=== PATIENT | male | born 1980 | race Caucasian/White ===

== ENCOUNTER 2020-07-05 19:55 | Emergency (ER) | payer MEDICAID, SELFPAY ==
[2020-07-05 19:56] VITALS: BP 136/86; PULSE 100; RESP 16; TEMP 36.7; O2SAT 98; BMI 25.0
--- NOTE | 2020-07-05 20:27 | HMH.EDWNDL ---
ED Disposition Clinical Impression: Laceration Disposition: Home, Self-Care Condition on Discharge: Good Instructions: DI for Laceration Repair Additional Instructions: sutures out 8 days and recheck if needed Referrals: PCP,No [Primary Care Provider] - - Critical Care Critical Care Time: No Attestation: On 07/05/20, the high probability of a clinically significant, sudden or life threatening deterioration of the following system(s) required my full and direct attention, intervention and personal management. The time I documented below is in addition to time spent performing reported procedures but includes the following listed in this critical care notation. Medical Decision Making - Medical Records Medical records reviewed: Yes: I reviewed the patient's medical records. - Martín Inquiry Pt receiving controlled substance: No Vital Signs: 07/05/20 19:56 Temperature 98.1 F Temperature Source Oral Pulse Rate [Left Radial] 100 H Respiratory Rate 16 Blood Pressure [Right Arm] 136/86 Blood Pressure Mean [Right Arm] 102 Blood Pressure Source [Right Arm] Automatic Cuff Blood Pressure Position [Right Arm] Sitting 02 Sat by Pulse Oximetry 98 Oxygen Delivery Method Room Air Orders (Tests/Meds): ED MEDICATIONS Discontinued Medications Generic Name Dose Route Start Last Admin Trade Name Freq PRN Reason Stop Dose Admin Acetaminophen 1,000 mg 07/05/20 20:17 Acetaminophen 500mg Tab PO 07/05/20 20:18 ONCE ONE Tetanus/Diphtheria Toxoids 0.5 ml 07/05/20 20:17 Tetanus-Diphth Toxoid, Adult 0.5ml Syr IM 07/05/20 20:18 .ONCE ONE Wound/Laceration HPI - General Chief Complaint: Wound/Laceration Stated Complaint: AO chain lacerated nose Time Seen by Provider: 07/05/20 20:05 Mode of Arrival: Ambulatory Source of Information: Patient, Medical Record Limitations: No Limitations Description of Symptoms (Recalled from ER Triage Doc. by RN): pt stated he was using a come-a-long when the chain broke and hit him in the nose. pt has a laceration present to the bridge of his nose. - History of Present Illness HPI narrative: acute lac nasal bridge - no loc and no nasal bleeding Onset (ago): hour(s) Location: face Place: outdoors Patient tetanus UTD: No Context: accidental - Related Data Previous Rx's Medication Instructions Recorded Minocycline HCl [Minocycline HCl 100 mg PO BID #20 tab 03/19/19 100mg Tab*] Sulfamethoxazole/Trimethoprim 1 each PO BID #14 tab 03/19/19 [Bactrim DS tablet] Allergies Allergy/AdvReac Type Severity Reaction Status Date / Time No Known Allergies Allergy Verified 12/25/18 21:57 [facility] History - Hepatitis A Screen Drug use history?: No High risk sexual behaviors?: No History of sexually transmitted infection?: No Currently employed?: No Childcare worker?: No Do you have indoor plumbing?: Yes Do you have electricity?: Yes Attestation statement:: This patient has been screened for Hepatitis A risk factors. I have reviewed the patient's past medical history: Yes Medical History: Reports:: MRSA Denies:: Diabetes Mellitus Type 1, Diabetes Mellitus Type 2 - Social History Smoking Status: Current every day smoker Tobacco Type: cigarettes # Packs/Day (cigarettes): 1 Alcohol Intake: never Substance Use Type: methamphetamine Last Used Substance: unknown Occupational Status: unemployed ROS Obtained: Yes All systems reviewed & no additional complaints - Constitutional Constitutional: Denies fever(s) - ENT Ears, Nose, Mouth, and Throat: Denies epistaxis, Reports nasal trauma, Denies sore throat - Cardiovascular Cardiovascular: Denies chest pain - Respiratory Respiratory: No cough - Gastrointestinal Gastrointestingal: Denies: dysphagia - Genitourinary Male Genitourinary: Denies hematuria - Musculoskeletal Musculoskeletal: Denies joint pain - Integumentary/Breasts Skin/Breast: Reports as per HPI, Reports ot
[2020-07-05 20:51] VITALS: BP 131/85; PULSE 81; RESP 16; TEMP 36.7; O2SAT 98
== END 2020-07-05 20:54 | disposition home or self-care (01) ==
PROVIDERS: Emergency Provider Emergency Medicine
DX: S01.21XA Laceration without foreign body of nose, initial encounter (principal); W27.8XXA Contact with other nonpowered hand tool, initial encounter; Y92.89 Other specified places as the place of occurrence of the external cause; F19.10 Other psychoactive substance abuse, uncomplicated; F17.210 Nicotine dependence, cigarettes, uncomplicated; Z23 Encounter for immunization
CPT/HCPCS: 12011; 90471; 90714; 99282

== ENCOUNTER 2021-05-06 13:25 | Emergency (ER) | payer MEDICAID, SELFPAY ==
[2021-05-06 14:40] VITALS: BP 128/90; PULSE 68; RESP 19; TEMP 37.1; O2SAT 98; BMI 28.3
--- NOTE | 2021-05-06 15:15 | HMH.EDUTC ---
[facility] Disposition Clinical Impression: Viral syndrome, Encounter for laboratory testing for COVID-19 virus Disposition: Home, Self-Care Condition on Discharge: Good Instructions: DI for Viral Syndrome, DI for COVID-19 (Suspected or Confirmed ), Coronavirus Disease 2019, Preventing the Spread of Coronavirus Discharge Instructions Additional Instructions: *Monitor Temp, Over the counter Motrin or Tylenol as directed/as needed Tylenol every 4 hours and Motrin every 6 hours (as long as your family doctor has told you that you can take it) for fever or pain. and straight to ER if unable to lower temp less than 101.0 after medication given *Warm salt water gargles may help to soothe the throat *Throat Lozenges *Warm fluids like tea with honey may help to soothe the throat *Sleep elevated *Humidifier/Vaporizer Over the counter Mucinex or Robitussin may help with cough and congestion Follow up IMMEDIATELY for new or worsening symptoms or no Noticeable improvement over the next 48-72 hours. 911 for difficulty breathing or swallowing You were tested for today for COVID19 your test result should be back in the next 24-48 hours, you may call to the [facility] to see if your test results are back in the next 48 hours [phone] [facility] hours are 9am-9pm You was given a handout with instructions for Self Quarantine and Self isolation for while you wait on test results and what to do if they are positive If you are positive the Health Dept will be contacting you also Make sure to take your Vitamins Vit. C Vit D and Zinc if you can take them Referrals: Provider,Referral, [Primary Care Provider] - As needed Medical Decision Making - Martín Inquiry Pt receiving controlled substance: No Martín was queried for this patient: No Vital Signs: 05/06/21 14:40 05/06/21 15:30 Temperature 98.8 F 98.8 F Temperature Source Oral Pulse Rate 68 Pulse Rate [Right Brachial] 68 Respiratory Rate 19 19 Blood Pressure 128/90 Blood Pressure [Right Arm] 128/90 Blood Pressure Mean [Right Arm] 102 Blood Pressure Source [Right Arm] Automatic Cuff Blood Pressure Position [Right Arm] Sitting 02 Sat by Pulse Oximetry 98 Oxygen Delivery Method Room Air Medical Decision Narrative: Discussed CXR due to patient having history of COPD agreed at first then states that he just wanted to get tested for COVID and he would follow up with his family Doctor if no improvement and negative COVID test/ [facility] HPI - General Stated complaint: covid test Time Seen by Provider: 05/06/21 15:15 Mode of Arrival: Ambulatory Source of Information: Patient Limitations: No Limitations Description of Symptoms (Recalled from Triage Doc. by RN): PATIENT C/O SORE THROAT, COUGH, DIZZINESS X 3 DAYS. WANTS COVID TEST HEENT Symptoms (Recalled from RN notes): Yes Resp Symptoms (Recalled from RN notes): No Skin Symptoms (Recalled from RN notes): No MS Symptoms (Recalled from RN notes): No Functional Status (Recalled from RN notes): WNL - History of Present Illness Provider Complaint: Patient states that he has been having cough, sore throat, nasal congestion and sometimes when he moves too quickly he gets dizzy but then it just goes away and at times when he blew his nose seen small amount of blood in his mucous from his nose State that he wanted to get tested for COVID - Related Data Previous Rx's Medication Instructions Recorded Minocycline HCl [Minocycline HCl 100 mg PO BID #20 tab 03/19/19 100mg Tab*] Sulfamethoxazole/Trimethoprim 1 each PO BID #14 tab 03/19/19 [Bactrim DS tablet] Allergies Allergy/AdvReac Type Severity Reaction Status Date / Time No Known Allergies Allergy Verified 12/25/18 21:57 - Worker's Comp Is this a Worker's Comp case?: No [facility] History - Hepatitis A Screen Drug use history?: No High risk sexual behaviors?: No History of sexually transmitted infection?: No Currently employed?: No Childcare worker?: No Do you have indoor pl
[2021-05-06 15:30] VITALS: BP 128/90; PULSE 68; RESP 19; TEMP 37.1; O2SAT 98
== END 2021-05-06 15:33 | disposition home or self-care (01) ==
LOC: UTC 15:39
PROVIDERS: Emergency Provider Nurse Practitioner
DX: B34.9 Viral infection, unspecified (principal); Z20.822 Contact with and (suspected) exposure to COVID-19; F17.210 Nicotine dependence, cigarettes, uncomplicated
CPT/HCPCS: 99202; G0463; U0003

== ENCOUNTER → 2021-07-02 12:38 | Outpatient (CLI) | payer MEDICAID, SELFPAY | PROVIDERS: Visit Provider Nurse Practitioner | DX: Z20.822 Contact with and (suspected) exposure to COVID-19 (principal) | CPT/HCPCS: C9803; U0003; U0005 ==

== ENCOUNTER 2022-11-23 11:08 | Emergency (ER) | payer OTHER, SELFPAY ==
[2022-11-23] VITALS (7 sets, daily range): BP systolic 134–242; BP diastolic 88–142; PULSE 86–93; RESP 20; TEMP 37.1; O2SAT 90–99; BMI 30.7
--- NOTE | 2022-11-23 11:06 | ECG_ITS ---
APPROVED REPORT Exam: Resting ECG HR:87 bpm ECG Measurements Heart Rate 87 AXES ND 140 P 29 QRSd 98 QRS 46 QT 375 T 42 QTc 419 Conclusion SINUS RHYTHM NORMAL ECG UNCONFIRMED REPORT Electronically signed by : Hermes Marcano MD 11/23/2022 21:07:03
--- NOTE | 2022-11-23 11:09 | HMH.EDGENADL ---
Discharge Plan Disposition Patient Disposition: Home, Self-Care Condition: Good Chief Complaint: Overdose Prescriptions Prescriptions: No Action sulfamethoxazole-trimethoprim 1 EACH tablet 1 each PO BID Qty: 14 0RF minocycline 100 MG tablet 100 mg PO BID Qty: 20 0RF Activity Restrictions/Add. Instructions Additional Instructions/Restrictions: Return to the emergency department if worsening headache or neck pain. Return if any difficulty breathing or any new symptoms such as fever, vomiting. You are being provided with a list of physicians available for follow-up of your condition. Please call a physician on this list to arrange a follow-up appointment as soon as possible. Clinical Impressions Clinical Impression: Opiate overdose Instructions Patient Instructions: DI for Drug Overdose in Adults, DI for Substance Use Disorder Discharge ED Provider: Magdaleno Tran General Adult HPI General Chief complaint: Overdose Stated complaint: overdose Time Seen by Provider: 11/23/22 11:10 History of Present Illness HPI narrative: Brought in by ambulance. The patient states that he accidentally overdosed. States that he thought he was injecting ice, but I guess it was not . Denies any other drug use today. Did not snort anything did not take any pills, did not drink alcohol. His mother says that she heard something hit the floor in the kitchen and went in and he was found unresponsive on the floor. 911 was called he received 1 mg of Narcan by EMS and became alert. He now says he just feels funny . Prior to this he says he was feeling his usual healthy self. He says he has a history of hepatitis C, untreated, and COPD. He is not on any prescription medications. He is a smoker. He is a nondrinker. He has been through drug rehab a couple of times, the last a couple of years ago and states I am not going back . Related Data Previous Rx's Medication Instructions Recorded minocycline 100 mg tablet 100 mg PO BID #20 tabs 03/19/19 sulfamethoxazole 800 1 each PO BID #14 tabs 03/19/19 mg-trimethoprim 160 mg tablet Allergies Allergy/AdvReac Type Severity Reaction Status Date / Time No Known Allergies Allergy Verified 12/25/18 21:57 [facility] Disclaimer: The information contained in this section may have been updated after the patient was seen, as this information can be updated by other users. Social History Smoking Status: Current every day smoker tobacco type: cigarettes packs per day: 1 alcohol intake: never substance use type: methamphetamine current occupational status: unemployed Travel in the last 8 weeks: None ROS Obtained: Yes Systems reviewed as appropriate & no additional complaints except as documented Constitutional Constitutional: Denies fever(s), Denies headache(s) and Denies weakness ENT Ears, Nose, Mouth, and Throat: Denies headache(s), Denies nasal discharge and Denies sore throat Cardiovascular Cardiovascular: Denies chest pain Respiratory Respiratory: Denies shortness of breath and Denies cough Gastrointestinal Gastrointestingal: Denies abdominal pain, constipation, diarrhea or vomiting Genitourinary Male Genitourinary: Denies difficulty urinating and Denies flank pain Musculoskeletal Musculoskeletal: Denies numbness Neurologic Neurologic: Denies headache(s), Denies numbness and Denies weakness Physical Exam General General appearance: alert and in no apparent distress Comment: Pulse ox 96% on room air Head Head exam: atraumatic and normocephalic Eye Eye exam: Present normal appearance and EOMI ENT ENT exam: Present mucous membranes moist Neck Neck exam: Present normal inspection and trachea midline Chest Chest inspection: Present normal inspection and symmetric chest wall rise Respiratory Respiratory exam: Present normal lung sounds bilaterally; Absent respiratory distress Cardiovascular Cardiovascular exam: Present regular rate, normal
--- NOTE | 2022-11-23 11:21 | PC.NURSE ---
gave pt pillow w/case & ice chips
--- NOTE | 2022-11-23 11:22 | XR_ITS ---
PROCEDURE INFORMATION: Exam: XR Chest Exam date and time: 11/23/2022 11:46 AM Age: 42 years old Clinical indication: Other: Overdose; Additional info: Od TECHNIQUE: Imaging protocol: Radiologic exam of the chest. Views: 1 view. COMPARISON: No relevant prior studies available. FINDINGS: Lungs: Unremarkable. No consolidation. Pleural spaces: Unremarkable. No pleural effusion. No pneumothorax. Heart/Mediastinum: Unremarkable. No cardiomegaly. Bones/joints: Unremarkable. IMPRESSION: No acute findings.
[2022-11-23 11:49] LABS: Barbiturates Screen,Urine Negative ng/ml (<200); Benzodiazepines Screen,Urine Negative ng/ml (<200)
[2022-11-23 11:50] LABS: Cannabinoid Screen,Urine Positive ng/ml (<50)
[2022-11-23 11:51] LABS: Cocaine Screen,Urine Negative ng/ml (<300)
[2022-11-23 11:52] LABS: Methadone Screen,Urine Negative ng/ml (<300); Opiate Screen,Urine Negative ng/ml (<300)
[2022-11-23 11:53] LABS: Phencyclidine Screen,Urine Negative ng/ml (<25)
[2022-11-23 11:56] LABS: Basophils # 0.2 K/mm3 (0-0.2); Basophils % 1.7 % (0.1-2.0); Eosinophils # 0.3 K/mm3 (0.0-0.4); Eosinophils % 2.7 % (0.1-12.0); Hematocrit 45.6 % (42.0-52.0); Hemoglobin 14.7 g/dL (14.1-18.0); Lymphocytes % 39.7 % (10-50); Mean Corpuscular HGB Conc 32.3 g/dL (31.8-35.4); Mean Corpuscular Hemoglobin 29.9 pg (27.0-31.2); Mean Corpuscular Volume 92.4 fl (80-94); Mean Platelet Volume 8.6 fl (7.4-10.4); Monocytes # 0.8 K/mm3 (0.1-1.0); Monocytes % 8.1 % (1.7-9.3); Neutrophils # 4.9 K/mm3 (1.8-7.8); Neutrophils % 47.7 % (37.0-80.0); Platelet Count 184 K/mm3 (142-424); Red Blood Count 4.94 M/mm3 (4.60-6.20); Red Cell Distribution Width 14.4 % (11.5-17.5); White Blood Count 10.2 K/mm3 (4.8-10.8)
[2022-11-23 11:59] LABS: Alanine Aminotransferase 222 U/L (12-78); Albumin Level 4.2 g/dl (3.5-5.0); Albumin/Globulin Ratio 1.4 (1.1-1.8); Alkaline Phosphatase 86 U/L (38-126); Anion Gap 9.1 mEq/L (5-15); Aspartate Amino Transferase 88 U/L (17-59); Bilirubin,Total 0.9 mg/dl (0.2-1.3); Blood Urea Nitrogen 25 mg/dl (9-20); Calcium 8.5 mg/dl (8.4-10.2); Carbon Dioxide 30 mmol/L (22.0-30.0); Chloride 101 mmol/L (98-107); Creatinine Clearance Estimated 136 mL/min (50-200); Estimated Glomerular Filt Rate 82 ml/min (>60); GFR (African American) 99 ML/MIN (>60); Globulin 3.1 g/dL (1.3-3.2); Glucose 102 mg/dl (74-100); Potassium 3.1 mmoL/L (3.5-5.1); Sodium 137 mmol/L (136-145); Total Protein,Serum 7.3 g/dl (6.3-8.2)
[2022-11-23 12:03] LABS: Ethyl Alcohol < 10 mg/dl (0-10)
--- NOTE | 2022-11-23 12:11 | PC.NURSE ---
pt still in/out.. no complaints at this time
--- NOTE | 2022-11-23 13:00 | PC.NURSE ---
rounded on pt no complaints at this time, mom @ [facility]
[2022-11-23 16:44] LABS: Amphetamine/Metha Screen,Urine Positive ng/ml (<1000)
== END 2022-11-23 13:22 | disposition home or self-care (01) ==
PROVIDERS: Emergency Provider Emergency Medicine
DX: T40.2X1A Poisoning by other opioids, accidental (unintentional), initial encounter (principal); J44.9 Chronic obstructive pulmonary disease, unspecified; B18.2 Chronic viral hepatitis C; F17.210 Nicotine dependence, cigarettes, uncomplicated; X58.XXXA Exposure to other specified factors, initial encounter
CPT/HCPCS: 71045; 80053; 80305; 85025; 93005; 99285

== ENCOUNTER 2022-12-17 20:05 | Emergency (ER) | payer OTHER, SELFPAY ==
[2022-12-17 20:07] VITALS: BP 104/70; PULSE 87; RESP 16; TEMP 37.1; O2SAT 98; BMI 27.1
--- NOTE | 2022-12-17 20:17 | XR_ITS ---
PROCEDURE INFORMATION: Exam: XR Right Knee Exam date and time: 12/17/2022 8:30 PM Age: 42 years old Clinical indication: Pain; Knee; Right TECHNIQUE: Imaging protocol: Radiologic exam of the right knee. Views: 3 views. COMPARISON: No relevant prior studies available. FINDINGS: Bones: Normal. Soft tissues: Joint effusion. IMPRESSION: Joint effusion without visualized acute osseous abnormality. If there is concern for internal joint derangement, consider MRI versus fluid sampling for further evaluation.
--- NOTE | 2022-12-17 21:12 | HMH.EDLOEX ---
Discharge Plan Disposition Patient Disposition: Home, Self-Care Prescriptions Prescriptions: New sulfamethoxazole-trimethoprim [Bactrim DS] 800-160 mg Tablet 1 tab PO Q12H Qty: 14 0RF cephalexin [cephalexin] 500 mg capsule 500 mg PO TID Qty: 30 0RF No Action sulfamethoxazole-trimethoprim 1 EACH tablet 1 each PO BID Qty: 14 0RF minocycline 100 MG tablet 100 mg PO BID Qty: 20 0RF Referrals Follow up/Referrals: Dillan Aburto MD [Primary Care Provider] - See instructions Clinical Impressions Clinical Impression: Acute internal derangement of knee, Cellulitis Instructions Patient Instructions: DI for Knee Pain Discharge ED Provider: Robbin (ED)Emmanuel Lower Extremity Injury HPI General Chief Complaint: Extremity Injury, Lower Stated Complaint: pain R knee Time Seen by Provider: 12/17/22 21:00 Mode of Arrival: Wheelchair Source of Information: Patient and Medical Record Limitations: No Limitations Description of Symptoms (Recalled from ER Triage Doc. by RN): pt states was walking yesterday and felt a pop in rt knee. pt was seen by pcp today and recieved a toradol and steriods shot. pt c/o rt knee pain and unable to bear weight History of Present Illness HPI Narrative: walking yesterday and felt pop rt knee and fell and has knee swelling - able to bear partial wt - saw pcp and placed on steroids - complaint: knee injury Onset (ago): day(s) Injury: Right: knee Type of Injury: unknown Place: street/outdoors Severity: moderate Associated symptoms: snap/pop sensation, swelling and able to partially bear weight Other symptoms: none Related Data Previous Rx's Medication Instructions Recorded minocycline 100 mg tablet 100 mg PO BID #20 tabs 03/19/19 sulfamethoxazole 800 1 each PO BID #14 tabs 03/19/19 mg-trimethoprim 160 mg tablet cephalexin 500 mg capsule 500 mg PO TID #30 caps 12/17/22 sulfamethoxazole 800 1 tab PO Q12H #14 tabs 12/17/22 mg-trimethoprim 160 mg tablet (Bactrim DS) Allergies Allergy/AdvReac Type Severity Reaction Status Date / Time No Known Allergies Allergy Verified 12/25/18 21:57 PFS PFS Disclaimer: The information contained in this section may have been updated after the patient was seen, as this information can be updated by other users. Social History Smoking Status: Current every day smoker tobacco type: cigarettes packs per day: 1 alcohol intake: never substance use type: methamphetamine current occupational status: unemployed Travel in the last 8 weeks: None ROS Obtained: Yes All systems reviewed & no additional complaints except as documented Physical Exam General General appearance: alert Head Head exam: normocephalic Eye Eye exam: Present PERRL and EOMI ENT ENT exam: Present mucous membranes moist Neck Neck exam: Present trachea midline Respiratory Respiratory exam: Absent respiratory distress Cardiovascular Cardiovascular exam: Present regular rate Abdominal Exam Abdominal exam: Present soft Expanded Lower Extremity Exam Right: Hip/Pelvis exam: Present pelvis stable Knee exam: Present tenderness, abrasion, effusion, posterior draw sign, knee extension intact and other (small abrasion with localized reddness - ); Absent full ROM or laceration Lower leg exam: Present full ROM Neurovascular/Tendon exam: Absent pulse deficit Neurological Exam Neurological exam: Present alert, oriented X3 and CN II-XII intact; Absent motor sensory deficit Psychiatric Psychiatric exam: Present normal affect Skin Skin exam: Absent rash Medical Decision Making Medical Records Medical records reviewed: Yes I reviewed the patient's medical records. Martín Inquiry Pt receiving controlled substance: No Vital Signs: 12/17/22 20:07 Temperature 98.7 F Temperature Source Oral Pulse Rate [Right] 87 Respiratory Rate 16 Blood Pressure [Right Arm] 104/70 L Blood Pressure Mean [Right Arm] 81 02 Sat by Pulse
[2022-12-17 22:22] VITALS: BP 138/87; PULSE 84; RESP 20; TEMP 36.8
== END 2022-12-17 22:33 | disposition home or self-care (01) ==
PROVIDERS: Emergency Provider Emergency Medicine; PCP Family Medicine
DX: M23.91 Unspecified internal derangement of right knee (principal); L03.115 Cellulitis of right lower limb; W18.30XA Fall on same level, unspecified, initial encounter
CPT/HCPCS: 73562; 90714; 96372; 99283

== ENCOUNTER 2023-05-13 10:41 | Emergency (ER) | payer OTHER, SELFPAY ==
[2023-05-13 10:42] VITALS: BP 127/79; PULSE 84; RESP 18; TEMP 36.7; O2SAT 98; BMI 32.1
[2023-05-13 10:46] VITALS: BP 127/79; PULSE 80; O2SAT 99
--- NOTE | 2023-05-13 10:50 | CT_ITS ---
FINAL REPORT TECHNIQUE: Thin section axial CT images with coronal reformats were obtained through the neck after the administration of IV contrast. This study was performed with techniques to keep radiation doses as low as reasonably achievable (ALARA). Individualized dose reduction techniques using automated exposure control or adjustment of mA and/or kV according to the patient''s size were employed. CLINICAL HISTORY: sore throat w/ tonsil swelling, pain w/ head turn FINDINGS: There is mild mucosal thickening in the ethmoid air cells. There are small scattered cervical lymph nodes bilaterally. Posterior triangle nodes measure up to 2.0 cm in greatest dimension bilaterally. There is no localized inflammatory reaction or fluid collection. Surgical clips are seen in the right supraclavicular region. The tonsils are prominent bilaterally, left is asymmetrically larger than the right. There is no evidence of abscess. IMPRESSION: Nonspecific diffuse cervical adenopathy, favored to be reactive. Tonsillar prominence, may be due to underlying inflammatory process. No evidence of tonsillar abscess. Reviewed, Interpreted and Dictated by Arsenio Arroyo MD Transcribed by Yen Calhoun Authenticated and [facility]
--- NOTE | 2023-05-13 10:50 | XR_ITS ---
FINAL REPORT CLINICAL HISTORY: cp COMPARISON: 11/23/2022 FINDINGS: SINGLE-VIEW CHEST The heart size is normal. The mediastinum is normal. The lungs are clear. There is no pneumothorax. IMPRESSION: No acute cardiopulmonary process. Reviewed, Interpreted and Dictated by Arsenio Arroyo MD Transcribed by Yen Calhoun Authenticated and [facility]
--- NOTE | 2023-05-13 10:52 | PC.NURSE ---
pt admits to drug use of any kind that he can get a hold of.
--- NOTE | 2023-05-13 10:54 | HMH.EDGENADL ---
Discharge Plan Disposition Patient Disposition: Home, Self-Care Condition: Good Prescriptions Prescriptions: New amoxicillin 500 mg capsule 500 mg PO BID 10 Days Qty: 20 0RF No Action sulfamethoxazole-trimethoprim 1 EACH tablet 1 each PO BID Qty: 14 0RF minocycline 100 MG tablet 100 mg PO BID Qty: 20 0RF sulfamethoxazole-trimethoprim [Bactrim DS] 800-160 mg Tablet 1 tab PO Q12H Qty: 14 0RF cephalexin [cephalexin] 500 mg capsule 500 mg PO TID Qty: 30 0RF Referrals Follow up/Referrals: Provider,Referral, [Primary Care Provider] - See instructions Activity Restrictions/Add. Instructions Additional Instructions/Restrictions: You were evaluated in the emergency department today. You have strep. We did not identify other abnormalities. Take the prescribed antibiotics as directed, do not skip doses, do not stop taking them early. Drink plenty of water. Follow-up with your primary care physician in 2 days for reassessment of symptoms. Take Tylenol and ibuprofen as needed for pain. Return to the emergency department with new or worsening symptoms. Clinical Impressions Clinical Impression: Acute streptococcal pharyngitis Discharge ED Provider: Addie Brannon General Adult HPI General Chief complaint: Nausea/Vomiting/Diarrhea Stated complaint: sore throat, body aches, vomiting Time Seen by Provider: 05/13/23 10:46 Mode of Arrival: Ambulatory Source of Information: Patient Limitations: No Limitations Description of Symptoms (Recalled from ER Triage Doc. by RN): c/o vomiting for 2 days, stomach cramping with a sore throat that feels really swollen and body aching. History of Present Illness HPI narrative: This 42-year-old male with a history of IV drug use presents to the emergency department with concerns of generalized malaise, myalgias, fevers, sore throat, vomiting, diarrhea. Patient states he has been having symptoms for the last 4 to 5 days. Vomiting is nonbloody, nonbilious. Diarrhea is not black, nonbloody. He describes epigastric abdominal pain. He also states he has been having chest pain but no cough. Patient states his throat feels like it is swollen shut. He thinks his voice sounds different than it normally would and he has pain when turning his head side to side. Patient states he smokes, drinks alcohol, and use any type of drugs I can get my hands on . Related Data Previous Rx's Medication Instructions Recorded minocycline 100 mg tablet 100 mg PO BID #20 tabs 03/19/19 sulfamethoxazole 800 1 each PO BID #14 tabs 03/19/19 mg-trimethoprim 160 mg tablet cephalexin 500 mg capsule 500 mg PO TID #30 caps 12/17/22 sulfamethoxazole 800 1 tab PO Q12H #14 tabs 12/17/22 mg-trimethoprim 160 mg tablet (Bactrim DS) amoxicillin 500 mg capsule 500 mg PO BID 10 days #20 caps 05/13/23 Allergies Allergy/AdvReac Type Severity Reaction Status Date / Time No Known Allergies Allergy Verified 12/25/18 21:57 PFS PFS Disclaimer: The information contained in this section may have been updated after the patient was seen, as this information can be updated by other users. Social History Smoking Status: Current every day smoker tobacco type: cigarettes packs per day: 1 alcohol intake: never substance use type: methamphetamine current occupational status: unemployed Travel in the last 8 weeks: None ROS Obtained: Yes All systems reviewed & no additional complaints except as documented Constitutional Constitutional: Reports chills, Reports fever(s), Denies headache(s) and Reports weakness Eyes Eyes: Denies change in vision ENT Ears, Nose, Mouth, and Throat: Denies dizziness, Denies headache(s), Denies nasal congestion and Reports sore throat Cardiovascular Cardiovascular: Reports chest pain, Denies dyspnea and Denies leg edema Respiratory Respiratory: Denies cough and Denies dyspnea Gastrointestinal Gastrointestingal: Reports diarrhea, nausea and vomiting; Denie
[2023-05-13 11:00] VITALS: BP 140/89; PULSE 73; O2SAT 99
--- NOTE | 2023-05-13 11:10 | ECG_ITS ---
APPROVED REPORT Exam: Resting ECG HR:72 bpm ECG Measurements Heart Rate 72 AXES MN 133 P 19 QRSd 97 QRS 47 QT 372 T 38 QTc 395 Conclusion SINUS RHYTHM NORMAL ECG UNCONFIRMED REPORT Electronically signed by : Hermes Marcano MD 05/14/2023 06:43:45
[2023-05-13 11:23] LABS: Strep Scrn Group A (Rapid) Positive (Negative)
[2023-05-13 11:24] LABS: Chloride 105 mmol/L (98-107); Potassium 4.2 mmoL/L (3.5-5.1); Sodium 140 mmol/L (136-145)
[2023-05-13 11:26] LABS: Alanine Aminotransferase 37 U/L (12-78); Alkaline Phosphatase 82 U/L (38-126); Aspartate Amino Transferase 42 U/L (17-59); Bilirubin,Total 0.4 mg/dl (0.2-1.3); Blood Urea Nitrogen 8 mg/dl (9-20); Creatinine Clearance Estimated 203 mL/min (50-200); Estimated Glomerular Filt Rate 124 ml/min (>60); GFR (African American) 150 ML/MIN (>60)
[2023-05-13 11:27] LABS: Albumin Level 3.3 g/dl (3.5-5.0); Anion Gap 8.2 mEq/L (5-15); Calcium 8.9 mg/dl (8.4-10.2); Carbon Dioxide 31 mmol/L (22.0-30.0); Globulin 3.3 g/dL (1.3-3.2); Glucose 93 mg/dl (74-100); Lipase 58 U/L (23-300); Total Protein,Serum 6.6 g/dl (6.3-8.2)
[2023-05-13 11:30] VITALS: BP 130/79; PULSE 70; O2SAT 100
[2023-05-13 11:40] LABS: Troponin I < 0.01 ng/ml (0.00-0.034)
[2023-05-13 11:50] LABS: Basophils # 0.1 K/mm3 (0-0.2); Basophils % 0.8 % (0.1-2.0); Eosinophils # 0.2 K/mm3 (0.0-0.4); Eosinophils % 1.6 % (0.1-12.0); Hematocrit 46.2 % (42.0-52.0); Hemoglobin 14.5 g/dL (14.1-18.0); Lymphocytes # 2.4 K/mm3 (0.7-4.5); Lymphocytes % 20.1 % (10-50); Mean Corpuscular HGB Conc 31.5 g/dL (31.8-35.4); Mean Corpuscular Hemoglobin 30.5 pg (27.0-31.2); Mean Corpuscular Volume 96.8 fl (80-94); Mean Platelet Volume 9.2 fl (7.4-10.4); Monocytes # 0.7 K/mm3 (0.1-1.0); Monocytes % 5.9 % (1.7-9.3); Neutrophils # 8.7 K/mm3 (1.8-7.8); Neutrophils % 71.7 % (37.0-80.0); Platelet Count 183 K/mm3 (142-424); Red Blood Count 4.77 M/mm3 (4.60-6.20); Red Cell Distribution Width 13.5 % (11.5-17.5); White Blood Count 12.1 K/mm3 (4.8-10.8)
--- NOTE | 2023-05-13 13:01 | PC.NURSE ---
pt stated nothing needed at this time,call light at [facility]
[2023-05-13 13:11] VITALS: BP 129/87; PULSE 81; RESP 20; TEMP 36.6; O2SAT 97
== END 2023-05-13 13:12 | disposition home or self-care (01) ==
PROVIDERS: Emergency Provider Emergency Medicine
DX: J02.0 Streptococcal pharyngitis (principal); R11.2 Nausea with vomiting, unspecified; R19.7 Diarrhea, unspecified; F17.210 Nicotine dependence, cigarettes, uncomplicated
CPT/HCPCS: 70491; 71045; 80053; 83605; 83690; 84484; 85025; 87430; 93005; 96374; 99285; J2405; Q9967

== ENCOUNTER 2023-06-10 20:54 | Emergency (ER) | payer OTHER, SELFPAY ==
[2023-06-10 21:05] VITALS: BP 161/77; PULSE 83; RESP 16; TEMP 36.8; O2SAT 99; BMI 28.5
--- NOTE | 2023-06-10 21:32 | HMH.EDGENADL ---
Discharge Plan Disposition Patient Disposition: Home, Self-Care Prescriptions Prescriptions: New ondansetron 4 mg tablet,disintegrating 4 mg PO Q6H PRN (Reason: nausea and vomiting) Qty: 10 0RF dicyclomine 10 mg capsule 10 mg PO TID Qty: 30 0RF Referrals Follow up/Referrals: Provider,Referral, MD [Referring] - See instructions Activity Restrictions/Add. Instructions Additional Instructions/Restrictions: Call your family doctor to establish care for this visit to the emergency department and schedule follow-up within 48 hours to ensure improvement. If you have any worsening of your condition or any other concerning signs or symptoms, return to the emergency department or your primary care doctor for further evaluation. Clinical Impressions Clinical Impression: Gastroenteritis Instructions Patient Instructions: DI for Diarrhea and Traveler's Diarrhea -- Adult, DI for Diarrhea and Traveler's Diarrhea -- Child, DI for Nausea -- Adult, DI for Nausea -- Child Discharge ED Provider: Agustin Mendez General Adult HPI General Chief complaint: Nausea/Vomiting/Diarrhea Stated complaint: vomiting for 2 days Time Seen by Provider: 06/10/23 20:57 Mode of Arrival: Wheelchair Source of Information: Patient Limitations: No Limitations Description of Symptoms (Recalled from ER Triage Doc. by RN): pt states he has had N/V/D and generalized abd pain that is burning and cramping. ongoing x2d History of Present Illness HPI narrative: 42-year-old male no past medical history other than hep C presenting with vomiting and diarrhea. 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 Not currently trying to seek care. Started vomiting 1 day prior to arrival. Nonbloody, nonbilious, yellow and frothy. Patient states that diarrhea is nonbloody, non-mucousy. No fevers or chills, but has abdominal cramping. No dysuria, hematuria, dark or discolored urine, chest pain or shortness of breath. Has not noticed anything that makes any of it better or worse. Related Data Previous Rx's Medication Instructions Recorded dicyclomine 10 mg capsule 10 mg PO TID #30 caps 06/10/23 ondansetron 4 mg disintegrating 4 mg PO Q6H PRN nausea and 06/10/23 tablet vomiting #10 tabs Allergies Allergy/AdvReac Type Severity Reaction Status Date / Time No Known Allergies Allergy Verified 06/10/23 21:11 [facility] Disclaimer: The information contained in this section may have been updated after the patient was seen, as this information can be updated by other users. Social History Smoking Status: Heavy tobacco smoker tobacco type: cigarettes packs per day: 1 alcohol intake: never substance use type: methamphetamine current occupational status: unemployed Travel in the last 8 weeks: None ROS Obtained: Yes All systems reviewed & no additional complaints except as documented Physical Exam General General appearance: alert, in no apparent distress and other ( ) Head Head exam: atraumatic and normocephalic Eye Eye exam: Present normal appearance, PERRL and EOMI ENT ENT exam: Present mucous membranes moist Neck Neck exam: Present normal inspection, full ROM and trachea midline Respiratory Respiratory exam: Absent respiratory distress, wheezes, stridor, accessory muscle use or prolonged expiratory phase Cardiovascular Cardiovascular exam: Present regular rate and normal rhythm Abdominal Exam Abdominal exam: Present soft; Absent distention, tenderness, guarding, rebound, rigidity or normal bowel sounds Extremities Exam Extremities exam: Absent edema Neurological Exam Neurological exam: Present alert, oriented X3, CN II-XII intact and normal gait; Absent motor sensory deficit Skin Skin exam: Present warm and dry; Absent diaphoresis or erythema Medical Decision Making Medical Records Medical records reviewed: Yes I reviewed the patient's medical records. Martín Field Pt receiving control
[2023-06-10 21:54] LABS: Alanine Aminotransferase 41 U/L (12-78); Albumin Level 4.5 g/dl (3.5-5.0); Albumin/Globulin Ratio 1.2 (1.1-1.8); Alkaline Phosphatase 77 U/L (38-126); Anion Gap 10.8 mEq/L (5-15); Aspartate Amino Transferase 43 U/L (17-59); Bilirubin,Total 0.5 mg/dl (0.2-1.3); Blood Urea Nitrogen 12 mg/dl (9-20); Calcium 9.1 mg/dl (8.4-10.2); Carbon Dioxide 29 mmol/L (22.0-30.0); Chloride 101 mmol/L (98-107); Creatinine Clearance Estimated 141 mL/min (50-200); Estimated Glomerular Filt Rate 93 ml/min (>60); GFR (African American) 112 ML/MIN (>60); Globulin 3.7 g/dL (1.3-3.2); Glucose 121 mg/dl (74-100); Lipase 45 U/L (23-300); Potassium 3.8 mmoL/L (3.5-5.1); Sodium 137 mmol/L (136-145); Total Protein,Serum 8.2 g/dl (6.3-8.2)
[2023-06-10 21:59] LABS: Basophils # 0.1 K/mm3 (0-0.2); Basophils % 0.6 % (0.1-2.0); Eosinophils # 0.1 K/mm3 (0.0-0.4); Eosinophils % 0.8 % (0.1-12.0); Hematocrit 55.1 % (42.0-52.0); Hemoglobin 17.3 g/dL (14.1-18.0); Lymphocytes # 1.7 K/mm3 (0.7-4.5); Lymphocytes % 15.8 % (10-50); Mean Corpuscular HGB Conc 31.4 g/dL (31.8-35.4); Mean Corpuscular Hemoglobin 30.2 pg (27.0-31.2); Mean Corpuscular Volume 95.9 fl (80-94); Mean Platelet Volume 9.3 fl (7.4-10.4); Monocytes # 0.4 K/mm3 (0.1-1.0); Monocytes % 3.9 % (1.7-9.3); Neutrophils # 8.6 K/mm3 (1.8-7.8); Neutrophils % 78.9 % (37.0-80.0); Platelet Count 168 K/mm3 (142-424); Red Blood Count 5.75 M/mm3 (4.60-6.20); Red Cell Distribution Width 13.9 % (11.5-17.5); White Blood Count 10.9 K/mm3 (4.8-10.8)
[2023-06-10 23:09] VITALS: BP 125/71; PULSE 78; RESP 17; TEMP 37.1; O2SAT 97
== END 2023-06-10 23:20 | disposition home or self-care (01) ==
PROVIDERS: Emergency Provider Emergency Medicine; PCP Emergency Medicine
DX: K52.9 Noninfective gastroenteritis and colitis, unspecified (principal); B19.20 Unspecified viral hepatitis C without hepatic coma; F17.210 Nicotine dependence, cigarettes, uncomplicated
CPT/HCPCS: 80053; 83690; 85025; 96361; 96374; 99284; J2405

== ENCOUNTER 2023-06-24 10:26 | Emergency (ER) | payer OTHER, SELFPAY ==
[2023-06-24] VITALS (16 sets, daily range): BP systolic 133–206; BP diastolic 88–114; PULSE 85–137; RESP 15–24; TEMP 36.3–37.7; O2SAT 95–98; BMI 28.7; BMI 28.8
--- NOTE | 2023-06-24 10:40 | PC.NURSE ---
police dept called due to unruly pt
--- NOTE | 2023-06-24 10:47 | XR_ITS ---
FINAL REPORT CLINICAL HISTORY: post intubation. COMPARISON: 05/13/2023 FINDINGS: SINGLE VIEW CHEST The heart is normal in size. The mediastinum is unremarkable. New ET tube tip is approximately 2 cm from the jessica. The lungs are clear. There is no pneumothorax. IMPRESSION: No acute process. Reviewed, Interpreted and Dictated by Bert Gupta III, MD Transcribed by Yen Calhoun Authenticated and . [facility]
--- NOTE | 2023-06-24 10:50 | XR_ITS ---
FINAL REPORT CLINICAL HISTORY: intubation, patient ate 9 grams of meth. FINDINGS: ABDOMEN SINGLE VIEW There is a nonspecific, nonobstructive bowel gas pattern. No abnormal dilatation is identified. There is a moderate amount of retained stool throughout the colon. There is no abnormal calcification. IMPRESSION: Moderate stool burden. Reviewed, Interpreted and Dictated by Bert Gupta III, MD Transcribed by Yen Calhoun Authenticated and [facility]
[2023-06-24 10:56] LABS: Basophils # 0.1 K/mm3 (0-0.2); Basophils % 0.6 % (0.1-2.0); Chloride 107 mmol/L (98-107); Eosinophils # 0.1 K/mm3 (0.0-0.4); Eosinophils % 0.3 % (0.1-12.0); Hematocrit 53.7 % (42.0-52.0); Hemoglobin 17.1 g/dL (14.1-18.0); Lymphocytes % 15.5 % (10-50); Mean Corpuscular HGB Conc 31.8 g/dL (31.8-35.4); Mean Corpuscular Hemoglobin 30.3 pg (27.0-31.2); Mean Corpuscular Volume 95.2 fl (80-94); Mean Platelet Volume 8.9 fl (7.4-10.4); Monocytes # 0.6 K/mm3 (0.1-1.0); Neutrophils # 15.4 K/mm3 (1.8-7.8); Neutrophils % 80.6 % (37.0-80.0); Platelet Count 291 K/mm3 (142-424); Potassium 4.3 mmoL/L (3.5-5.1); Red Blood Count 5.64 M/mm3 (4.60-6.20); Red Cell Distribution Width 13.6 % (11.5-17.5); Sodium 147 mmol/L (136-145); White Blood Count 19.1 K/mm3 (4.8-10.8)
[2023-06-24 10:58] LABS: Alanine Aminotransferase 51 U/L (12-78); Aspartate Amino Transferase 51 U/L (17-59); Bilirubin,Total 0.7 mg/dl (0.2-1.3); Blood Urea Nitrogen 15 mg/dl (9-20); Creatinine Clearance Estimated 112 mL/min (50-200); Estimated Glomerular Filt Rate 73 ml/min (>60); GFR (African American) 89 ML/MIN (>60)
--- NOTE | 2023-06-24 10:58 | PC.NURSE ---
on arrival to ed, pt combative, thrashing at staff. ems, MD and ED staff at the bedside with pt. verbal orders for versed obatined at this time. 10:28 5mg IM versed 10:30- IV established, orders for 2mg IV versed 10:34- verbal order for 5mg IV versed 10:40- second IV placed at this time 10:42- pt remians combative at this time, convulsing. MD requests airway box and intubation set up. RT, paint roller covers supervisor and XR notified at this time. verbal orders for sedation drugs given by MD 10:44- 40mg of etomidate given 10:45 100mg rocuronium given at this time 1047: 7.5 ET inserted, 26 @ lip color changed achieved, tube confirmed via XR and auscultation. MD requests propofol for sedation. 10:53- propofol started per protocol 10:53- fluids started at this time 11:00- temp reddy placed at this time
[2023-06-24 10:59] LABS: Albumin Level 4.8 g/dl (3.5-5.0); Alkaline Phosphatase 74 U/L (38-126); Anion Gap 22.3 mEq/L (5-15); Calcium 9.8 mg/dl (8.4-10.2); Carbon Dioxide 22 mmol/L (22.0-30.0); Globulin 4.6 g/dL (1.3-3.2); Glucose 119 mg/dl (74-100); Total Protein,Serum 9.4 g/dl (6.3-8.2)
[2023-06-24 11:01] LABS: Salicylate < 1.0 mg/dL (2.0-20.0)
[2023-06-24 11:02] LABS: Acetaminophen < 10 ug/ml (10-30); MANUAL DIFFERENTIAL MANUAL DIFFERENTIAL (MANUAL DIFF)
[2023-06-24 11:03] LABS: Creatine Kinase 126 U/L (55-170)
--- NOTE | 2023-06-24 11:03 | ECG_ITS ---
APPROVED REPORT Exam: Resting ECG HR:118 bpm ECG Measurements Heart Rate 118 AXES AK 143 P 62 QRSd 99 QRS 74 QT 328 T 57 QTc 398 Conclusion SINUS TACHYCARDIA NONSPECIFIC T-WAVE ABNORMALITY ABNORMAL RHYTHM ECG UNCONFIRMED REPORT Electronically signed by : Hermes Marcano MD 06/25/2023 07:31:42
--- NOTE | 2023-06-24 11:03 | HMH.EDGENADL ---
Discharge Plan Disposition Patient Disposition: Xfer Short-Term Hosp Condition: Good Prescriptions Prescriptions: No Action Unobtainable Referrals Follow up/Referrals: Provider,Referral, [Primary Care Provider] - See instructions Clinical Impressions Clinical Impression: Methamphetamine poisoning of undetermined intent, Agitation, Seizure, Acute hypoxemic respiratory failure Discharge ED Provider: Nelly Harrell General Adult HPI General Chief complaint: Altered Mental Status Stated complaint: od Time Seen by Provider: 06/24/23 10:40 History of Present Illness HPI narrative: This patient is a 42-year-old male with a history of polysubstance abuse presenting to the emergency department by EMS for evaluation with concern for agitation and altered mental status in the setting of overdose. Patient had been using methamphetamines all night. He states that he eats them. This morning, he felt like he was not high enough, so he ate 9 g of methamphetamine at once. He denies any ingestion or use of any other substances. EMS reported that he was acutely agitated in route. Patient is very anxious and agitated, stating that he is dying. Further history is difficult to obtain from the patient His mother reports that he was very paranoid this morning, looking out the window and stated that there was someone hiding in the closet. He then started shaking all over and stating that he needed to go to the hospital. She states that he then fell out on the couch. At this point, she called EMS to bring him in for evaluation concerned that he had overdosed, as he does have a history of opiate overdose. Related Data Home Medications Medication Instructions Recorded Confirmed Unobtainable 06/24/23 06/24/23 Allergies Allergy/AdvReac Type Severity Reaction Status Date / Time No Known Allergies Allergy Verified 06/10/23 21:11 [facility] Disclaimer: The information contained in this section may have been updated after the patient was seen, as this information can be updated by other users. Social History Smoking Status: Unknown if ever smoked alcohol intake: never substance use type: methamphetamine current occupational status: unemployed Travel in the last 8 weeks: None ROS Obtained: Yes unobtainable due to mental status Physical Exam General General appearance: alert and appears intoxicated Comment: Extremely agitated, actively trying to swing at and kick staff. Head Head exam: atraumatic and normocephalic Eye Eye exam: Present PERRL and conjunctival injection ENT ENT exam: Present normal exam, normal oropharynx and mucous membranes dry Neck Neck exam: Present normal inspection, full ROM and trachea midline Chest Chest inspection: Present normal inspection and symmetric chest wall rise Respiratory Respiratory exam: Present normal lung sounds bilaterally and other (tachypneic) Cardiovascular Cardiovascular exam: Present normal rhythm and tachycardia Abdominal Exam Abdominal exam: Present soft; Absent distention, tenderness or guarding Extremities Exam Extremities exam: Present normal inspection and full ROM; Absent tenderness Back Exam Back exam: Present normal inspection and full ROM; Absent tenderness Neurological Exam Neurological exam: Present alert and CN II-XII intact; Absent oriented X3 or motor sensory deficit Psychiatric Psychiatric exam: Present agitated and anxious Skin Skin exam: Present warm and diaphoresis Medical Decision Making Medical Records Medical records reviewed: Yes I reviewed the patient's medical records. Martín Inquiry Pt receiving controlled substance: No Vital Signs: 06/24/23 11:08 06/24/23 10:47 06/24/23 10:48 Temperature 99.3 F Temperature Source Core Pulse Rate 137 H 133 H Pulse Rate [Left Radial] 136 H Respiratory Rate 22 Blood Pressure 194/107 H 206/112 H Blood Pressure [
--- NOTE | 2023-06-24 11:11 | CT_ITS ---
FINAL REPORT CLINICAL HISTORY: AMS COMPARISON: None FINDINGS: Axial images of the head were obtained without contrast. Coronal reformatted images were also obtained.This study was performed with techniques to keep radiation doses as low as reasonably achievable (ALARA). Individualized dose reduction techniques using automated exposure control or adjustment of mA and/or kV according to the patient''s size were employed. There is no evidence of intracranial hemorrhage or mass. The ventricular size is within normal limits. There is no evidence of shift of the midline structures. No abnormal extra axial fluid collection is identified. No skull abnormality is seen on the bone window images. There is mucosal thickening in multiple sinuses. There is abnormal soft tissue in the nasal cavity consistent with sinusitis and possible nasal polyposis. IMPRESSION: No acute intracranial abnormality. Sinus disease as above. Reviewed, Interpreted and Dictated by Bert Gupta III, MD Transcribed by Karina Beebe Authenticated and . [facility]
--- NOTE | 2023-06-24 11:14 | PC.NURSE ---
Dr. Harrell speaking with poison control at this time
[2023-06-24 11:15] LABS: ABG Base Excess -4.7 mmol/L (-2.4-2.3); ABG Oxygen Saturation 100 % (90-100); ABG PH 7.28 mmol/L (7.35-7.45); ABG PO2 517.9 mmhg (80-100); ABG TCO2 23.5 mmhg (23-27)
--- NOTE | 2023-06-24 11:16 | PC.NURSE ---
reddy catheter placed, no urine output from catheter at time of anchor. Will continue to monitor for uop and to be able to send specimen to lab
--- NOTE | 2023-06-24 11:17 | PC.NURSE ---
ER MD Harrell speaking with hospitalist in consult
[2023-06-24 11:18] LABS: Allen's Test Patient Unable; Oxygen 100% %; PEEP 8; Tidal Volume 440; Vent Rate 24
--- NOTE | 2023-06-24 11:18 | PC.NURSE ---
RESP CARE NOTE: Pt sputum sent to lab.
[2023-06-24 11:19] LABS: Source Right Brachial
--- NOTE | 2023-06-24 11:20 | PC.NURSE ---
lab notified of blood draw
--- NOTE | 2023-06-24 11:23 | PC.NURSE ---
placed call to [facility] for transfer
[2023-06-24 11:28] LABS: Lymphocytes % 17 % (10-50); Monocytes % 2 % (2-9); Neutrophils % 81 % (42-76); Total Cells Counted 100
[2023-06-24 11:29] LABS: Platelet Estimate Normal; RBC Morphology Normal
--- NOTE | 2023-06-24 11:59 | PC.NURSE ---
Called [employer] [facility] to see if anyone would accept to fly pt to [facility] 4th floor, [facility] would be available unit eta would be 39minutes waiting for acceptance from [facility]
--- NOTE | 2023-06-24 12:00 | PC.NURSE ---
Addendum entered by Mar Masterson RN 06/24/23 12:50: error propofol is mcg/kg/min Original Note: propofol titrated to 10mg/kg/hr -ER aware
[2023-06-24 12:03] LABS: Ethyl Alcohol < 10 mg/dl (0-10)
--- NOTE | 2023-06-24 12:03 | PC.NURSE ---
[facility] confirmed acceptance ETA 39 minutes for [place].
--- NOTE | 2023-06-24 12:09 | PC.NURSE ---
call made to [facility] fourth floor ([phone]). per medical secretary teacher, nurse receiving report on pt will have to call back as she is tied up with another pt.
[2023-06-24 12:10] LABS: Microscopic, Urine URINE MICROSCOPIC (MICROSCOPIC)
[2023-06-24 12:13] LABS: Lactic Acid 1.4 mmol/L (0.7-2.1)
--- NOTE | 2023-06-24 12:13 | PC.NURSE ---
Addendum entered by Mar Masterson RN 06/24/23 12:49: error propofol is mcg/kg/min Original Note: propofol titrated up to 15mcg/kg/hr at this time ER aware-pt started to move around versed drip titrated up to 0.04 mg/kg/hr at this time also ER aware
--- NOTE | 2023-06-24 12:13 | PC.NURSE ---
propofol titrated up to 15mg/kg/hr at this time ER MD aware-pt started to move around versed drip titrated up to 0.04 mg/kg/hr at this time also ER aware
[2023-06-24 12:17] LABS: Appearance,Urine CLEAR (Clear); Blood, Urine Negative (Negative); Color,Urine YELLOW (Yellow); Glucose,Urine (UA) Negative (Negative); Ketones,Urine TRACE (Negative); Leukocyte Esterase,Urine Negative (Negative); Nitrate,Urine Negative (Negative); Protein,Urine 2+ (Negative); Specific Gravity, Urine >= 1.030 (1.005-1.030)
--- NOTE | 2023-06-24 12:17 | PC.NURSE ---
[facility] called back eta 15 min
--- NOTE | 2023-06-24 12:22 | PC.NURSE ---
propofol titrated to 50 mcg/kg/min. versed titrated to 0.2 mg/kg/hr Dr. Harrell at bedside, verbal orders given.
[2023-06-24 12:29] LABS: Barbiturates Screen,Urine Negative ng/ml (<200)
[2023-06-24 12:30] LABS: Benzodiazepines Screen,Urine Positive ng/ml (<200)
[2023-06-24 12:31] LABS: Cannabinoid Screen,Urine Positive ng/ml (<50)
[2023-06-24 12:32] LABS: Cocaine Screen,Urine Negative ng/ml (<300)
[2023-06-24 12:33] LABS: Bacteria,Urine Trace /lpf; Bilirubin,Urine Negative (Negative); Methadone Screen,Urine Negative ng/ml (<300); Opiate Screen,Urine Negative ng/ml (<300); RBC,Urine Occasional #/hpf (0-3); Squamous Epithelial Cell,Urine Occasional #/hpf (0-5)
[2023-06-24 12:34] LABS: Phencyclidine Screen,Urine Negative ng/ml (<25)
--- NOTE | 2023-06-24 12:42 | PC.NURSE ---
[facility] here to fly pt to [facility] on 4th floor
--- NOTE | 2023-06-24 12:45 | PC.NURSE ---
[employer] staff at BS, report given
--- NOTE | 2023-06-24 12:48 | PC.NURSE ---
Dr. Harrell at gave verbal orders for titration 1233-propfol increased to 60 mcg/kg/min 1235- propofol in creased to 80 mcg/kg/min
--- NOTE | 2023-06-24 12:49 | PC.NURSE ---
report called to [facility] at [facility], fourth floor
--- NOTE | 2023-06-24 12:50 | PC.NURSE ---
lab called reports amphetamine level too high having to send it out, notified Dr. Harrell
== END 2023-06-24 13:17 | disposition short-term general hospital (02) ==
PROVIDERS: Emergency Provider Emergency Medicine
DX: T43.654A Poisoning by methamphetamines, undetermined, initial encounter (principal); J96.01 Acute respiratory failure with hypoxia; R45.6 Violent behavior; R45.1 Restlessness and agitation; R56.9 Unspecified convulsions; R03.0 Elevated blood-pressure reading, without diagnosis of hypertension; R00.0 Tachycardia, unspecified
CPT/HCPCS: 31500; 51702; 70450; 71045; 74018; 80053; 80305; 80329; 81001; 82550; 82803; 83605; 85007; 85025; 87040; 87070; 87205; 93005; 96361; 96374; 96375; 96376; 99291; J2704

== ENCOUNTER → 2023-07-07 11:12 | Outpatient (CLI) | payer OTHER, SELFPAY ==
--- NOTE | 2023-07-07 11:17 | XR_ITS ---
FINAL REPORT CLINICAL HISTORY: WRIST INJURY FINDINGS: 3 views of the left wrist were obtained. There is no acute fracture or dislocation. The joint spaces are intact. There is no soft tissue abnormality. IMPRESSION: No acute abnormality. Reviewed, Interpreted and Dictated by Bert Gupta III, MD Transcribed by Amador Grande Authenticated and [facility]
--- NOTE | 2023-07-07 11:17 | XR_ITS ---
FINAL REPORT CLINICAL HISTORY: . FINDINGS: 3 views of the right wrist were obtained. There is no acute fracture or dislocation. The joint spaces are intact. There is no soft tissue abnormality. IMPRESSION: No acute abnormality. Reviewed, Interpreted and Dictated by Bert Gupta III, MD Transcribed by Amador Grande Authenticated and [facility]
== END ==
PROVIDERS: PCP Family Medicine; Visit Provider Family Medicine
DX: G56.03 Carpal tunnel syndrome, bilateral upper limbs (principal); R52 Pain, unspecified
CPT/HCPCS: 73110

== ENCOUNTER → 2023-07-14 09:48 | Outpatient (CLI) | payer OTHER, SELFPAY ==
[2023-07-14 10:27] LABS: Basophils # 0.1 K/mm3 (0-0.2); Basophils % 1.3 % (0.1-2.0); Eosinophils # 0.3 K/mm3 (0.0-0.4); Eosinophils % 2.7 % (0.1-12.0); Hematocrit 46.7 % (42.0-52.0); Hemoglobin 15.9 g/dL (14.1-18.0); Lymphocytes # 3.6 K/mm3 (0.7-4.5); Lymphocytes % 35.6 % (10-50); Mean Corpuscular Hemoglobin 32.6 pg (27.0-31.2); Mean Platelet Volume 8.4 fl (7.4-10.4); Monocytes # 0.7 K/mm3 (0.1-1.0); Monocytes % 6.6 % (1.7-9.3); Neutrophils # 5.4 K/mm3 (1.8-7.8); Neutrophils % 53.8 % (37.0-80.0); Platelet Count 199 K/mm3 (142-424); Red Blood Count 4.86 M/mm3 (4.60-6.20); Red Cell Distribution Width 13.3 % (11.5-17.5); White Blood Count 10.1 K/mm3 (4.8-10.8)
[2023-07-14 11:25] LABS: Alanine Aminotransferase 72 U/L (12-78); Albumin Level 4.4 g/dl (3.5-5.0); Albumin/Globulin Ratio 1.3 (1.1-1.8); Alkaline Phosphatase 75 U/L (38-126); Anion Gap 15.8 mEq/L (5-15); Aspartate Amino Transferase 50 U/L (17-59); Bilirubin,Total 0.3 mg/dl (0.2-1.3); Blood Urea Nitrogen 6 mg/dl (9-20); Calcium 9.7 mg/dl (8.4-10.2); Carbon Dioxide 27 mmol/L (22.0-30.0); Chloride 103 mmol/L (98-107); Estimated Glomerular Filt Rate 93 ml/min (>60); GFR (African American) 112 ML/MIN (>60); Globulin 3.3 g/dL (1.3-3.2); Glucose 90 mg/dl (74-100); Potassium 4.8 mmoL/L (3.5-5.1); Sodium 141 mmol/L (136-145); Total Protein,Serum 7.7 g/dl (6.3-8.2)
[2023-07-14 11:39] LABS: 25-OH Vitamin D, Total 28.8 ng/mL (30-100)
[2023-07-14 12:12] LABS: Vitamin B12 320 pg/mL (239-931)
[2023-07-14 17:23] LABS: Amphetamine/Metha Screen,Urine Negative ng/ml (<1000)
[2023-07-14 17:24] LABS: Barbiturates Screen,Urine Negative ng/ml (<200); Benzodiazepines Screen,Urine Negative ng/ml (<200)
[2023-07-14 17:25] LABS: Cannabinoid Screen,Urine Positive ng/ml (<50); Cocaine Screen,Urine Negative ng/ml (<300)
[2023-07-14 17:26] LABS: Methadone Screen,Urine Negative ng/ml (<300)
[2023-07-14 17:27] LABS: Opiate Screen,Urine Negative ng/ml (<300); Phencyclidine Screen,Urine Negative ng/ml (<25)
[2023-07-15 10:22] LABS: Rapid Plasma Reagin Ab Titer Non Reactive titer (NonRea<1:1)
[2023-07-15 15:03] LABS: HIV Screen 4th Generation wRfx Non Reactive (Non Reactive)
[2023-07-16 05:10] LABS: Hep A Ab, Total Positive (Negative); Hep B Core Ab, Total Negative (Negative); Hep B Surface Ab, Qual Non Reactive (.)
[2023-07-20 09:05] LABS: Hepatitis B Surface Antigen Negative
[2023-07-20 09:06] LABS: Alpha 2-Macroglobulins, Qn 144; Fibrosis Score 0.02; Fibrosis Stage F0-NO FIBROSIS; Necroinflammat Activity Score 0.32
[2023-07-20 09:07] LABS: ALT (SGPT) P5P 70; Apolipoprotein A-1 156; Bilirubin, Total <0.1; GGT 18; Haptoglobin 171
[2023-07-23 11:51] LABS: Hepatitis C Antibody Reactive
== END ==
PROVIDERS: PCP Internal Medicine; Visit Provider Internal Medicine
DX: B34.9 Viral infection, unspecified (principal); B19.20 Unspecified viral hepatitis C without hepatic coma; Z79.899 Other long term (current) drug therapy; Z68.29 Body mass index [BMI] 29.0-29.9, adult
CPT/HCPCS: 36415; 80053; 80305; 81596; 82306; 82607; 85025; 86593; 86703; 86704; 86706; 86708; 87340; 87380; 87522; G0432

== ENCOUNTER → 2023-07-16 12:48 | Outpatient (CLI) | payer OTHER, SELFPAY ==
--- NOTE | 2023-07-16 12:50 | US_ITS ---
FINAL REPORT CLINICAL HISTORY: Left hand numbness and tingling, cellulitis COMPARISON: None FINDINGS: Sonographic images were obtained of the left hand/thumb in the area of interest. No fluid collection is identified to suggest abscess. IMPRESSION: No fluid collection identified to suggest abscess. Reviewed, Interpreted and Dictated by Bert Gupta III, MD Transcribed by Karina Beebe Authenticated and [facility]
--- NOTE | 2023-07-16 12:50 | US_ITS ---
FINAL REPORT CLINICAL HISTORY: numbness and tingling, cellulitis COMPARISON: None FINDINGS: Sonographic images were obtained of the right wrist in the area of interest. No fluid collection is identified to suggest abscess. IMPRESSION: No fluid collection to suggest abscess. Reviewed, Interpreted and Dictated by Bert Gupta III, MD Transcribed by Karina Beebe Authenticated and [facility]
== END ==
PROVIDERS: PCP Internal Medicine; Visit Provider Internal Medicine
DX: L03.113 Cellulitis of right upper limb (principal); R20.0 Anesthesia of skin; R20.2 Paresthesia of skin; M95.8 Other specified acquired deformities of musculoskeletal system
CPT/HCPCS: 76882

== ENCOUNTER → 2023-08-21 15:13 | Outpatient (CLI) | payer OTHER, SELFPAY ==
--- NOTE | 2023-08-21 15:17 | XR_ITS ---
FINAL REPORT CLINICAL HISTORY: wing scapula FINDINGS: Left shoulder Three views were obtained. There is no acute fracture or dislocation. There is old healed fracture deformity of the distal clavicle. The joint spaces appear normal. No soft tissue abnormality is identified. IMPRESSION: No acute process. Reviewed, Interpreted and Dictated by Arsenio Arroyo MD Transcribed by Yen Calhoun Authenticated and [facility]
[2023-08-21 16:44] LABS: Blood Urea Nitrogen 11 mg/dl (9-20); Estimated Glomerular Filt Rate 73 ml/min (>60); GFR (African American) 89 ML/MIN (>60)
[2023-08-23 11:40] LABS: Hep B Core Ab, Total Negative (Negative); Hep B Surface Ab, Qual Non Reactive (.)
== END ==
PROVIDERS: PCP Internal Medicine; Visit Provider Internal Medicine
DX: M95.8 Other specified acquired deformities of musculoskeletal system (principal); B34.9 Viral infection, unspecified; F19.10 Other psychoactive substance abuse, uncomplicated
CPT/HCPCS: 36415; 73030; 82565; 84520; 86704; 86706

== ENCOUNTER → 2023-08-26 07:11 | Outpatient (CLI) | payer OTHER, SELFPAY ==
--- NOTE | 2023-08-26 07:38 | MR_ITS ---
FINAL REPORT CLINICAL HISTORY: HAND PAIN FINDINGS: Multiplanar MR imaging of the right hand was performed without contrast. There is no evidence of fracture. Mild degenerative changes are noted at the first metacarpal-phalangeal joint. There is mild bone marrow edema in the head of the first metacarpal. No bony mass is identified. The images are not optimized for evaluation of the thumb, but no definite ligamentous injury is identified. A small first metacarpal-phalangeal joint effusion is noted. The tendons are intact. No soft tissue mass is identified. IMPRESSION: Mild degenerative changes of the first metacarpal-phalangeal joint with a small joint effusion. No evidence of acute injury identified. Authenticated and [facility]
== END ==
PROVIDERS: PCP Internal Medicine; Visit Provider Internal Medicine
DX: M79.641 Pain in right hand (principal); M79.89 Other specified soft tissue disorders; Z87.828 Personal history of other (healed) physical injury and trauma
CPT/HCPCS: 73220; A9576

== ENCOUNTER → 2023-08-27 09:17 | Outpatient (CLI) | payer OTHER, SELFPAY ==
[2023-08-27 19:01] LABS: Coronavirus 19, PCR Not Detected (NotDetected); Influenza A, PCR Not Detected (NotDetected); Influenza B, PCR Not Detected (NotDetected)
== END ==
PROVIDERS: PCP Internal Medicine; Visit Provider Internal Medicine
DX: Z20.822 Contact with and (suspected) exposure to COVID-19 (principal)
CPT/HCPCS: 87636

== ENCOUNTER → 2023-09-10 08:17 | Outpatient (CLI) | payer OTHER, SELFPAY ==
[2023-09-10 23:35] LABS: Amphetamine/Metha Screen,Urine Negative ng/ml (<1000)
[2023-09-10 23:37] LABS: Barbiturates Screen,Urine Negative ng/ml (<200)
[2023-09-10 23:38] LABS: Cannabinoid Screen,Urine Positive ng/ml (<50)
[2023-09-10 23:39] LABS: Cocaine Screen,Urine Negative ng/ml (<300)
[2023-09-10 23:40] LABS: Methadone Screen,Urine Negative ng/ml (<300); Opiate Screen,Urine Negative ng/ml (<300)
[2023-09-10 23:41] LABS: Phencyclidine Screen,Urine Negative ng/ml (<25)
[2023-09-10 23:44] LABS: Benzodiazepines Screen,Urine Negative ng/ml (<200)
== END ==
PROVIDERS: PCP Internal Medicine; Visit Provider Internal Medicine
DX: Z79.899 Other long term (current) drug therapy (principal)
CPT/HCPCS: 80305

== ENCOUNTER 2023-09-25 18:55 | Emergency (ER) | payer OTHER, SELFPAY ==
[2023-09-25] VITALS (8 sets, daily range): BP systolic 114–147; BP diastolic 69–105; PULSE 60–91; RESP 16–18; TEMP 37–37.1; O2SAT 94–97; BMI 33.5
--- NOTE | 2023-09-25 18:52 | ECG_ITS ---
APPROVED REPORT Exam: Resting ECG HR:89 bpm ECG Measurements Heart Rate 89 AXES NM 154 P 26 QRSd 100 QRS 21 QT 357 T 30 QTc 404 Conclusion SINUS RHYTHM NORMAL ECG UNCONFIRMED REPORT Electronically signed by : Hermes Marcano MD 09/26/2023 10:06:02
--- NOTE | 2023-09-25 19:00 | XR_ITS ---
PROCEDURE INFORMATION: Exam: XR Chest Exam date and time: 09/25/2023 7:00 PM Age: 43 years old Clinical indication: Pain; Other: Cp TECHNIQUE: Imaging protocol: Radiologic exam of the chest. Views: 2 views. COMPARISON: CR XR CHEST PORTABLE 06/24/2023 11:06 AM FINDINGS: Lungs: Unremarkable. No consolidation. Pleural spaces: Unremarkable. No pleural effusion. No pneumothorax. Heart/Mediastinum: Unremarkable. No cardiomegaly. Bones/joints: Moderate degenerative changes of the thoracic spine. No acute fracture. IMPRESSION: No acute disease
[2023-09-25 19:12] LABS: Basophils # 0.2 K/mm3 (0-0.2); Basophils % 1.3 % (0.1-2.0); Eosinophils # 0.3 K/mm3 (0.0-0.4); Eosinophils % 2.5 % (0.1-12.0); Hematocrit 50.2 % (42.0-52.0); Hemoglobin 17.3 g/dL (14.1-18.0); Lymphocytes # 4.2 K/mm3 (0.7-4.5); Lymphocytes % 31.5 % (10-50); Mean Corpuscular HGB Conc 34.4 g/dL (31.8-35.4); Mean Corpuscular Hemoglobin 32.5 pg (27.0-31.2); Mean Corpuscular Volume 94.5 fl (80-94); Monocytes # 0.8 K/mm3 (0.1-1.0); Monocytes % 5.8 % (1.7-9.3); Neutrophils # 7.8 K/mm3 (1.8-7.8); Neutrophils % 58.8 % (37.0-80.0); Platelet Count 165 K/mm3 (142-424); Red Blood Count 5.31 M/mm3 (4.60-6.20); Red Cell Distribution Width 13.7 % (11.5-17.5); White Blood Count 13.3 K/mm3 (4.8-10.8)
[2023-09-25 19:18] LABS: Chloride 105 mmol/L (98-107); Potassium 4.2 mmoL/L (3.5-5.1); Sodium 140 mmol/L (136-145)
[2023-09-25 19:20] LABS: Alanine Aminotransferase 38 U/L (12-78); Aspartate Amino Transferase 45 U/L (17-59); Blood Urea Nitrogen 16 mg/dl (9-20); Creatinine Clearance Estimated 147 mL/min (50-200); Estimated Glomerular Filt Rate 82 ml/min (>60); GFR (African American) 99 ML/MIN (>60)
[2023-09-25 19:21] LABS: Albumin Level 4.3 g/dl (3.5-5.0); Albumin/Globulin Ratio 1.3 (1.1-1.8); Alkaline Phosphatase 64 U/L (38-126); Anion Gap 10.2 mEq/L (5-15); Bilirubin,Total 0.5 mg/dl (0.2-1.3); Calcium 8.5 mg/dl (8.4-10.2); Carbon Dioxide 29 mmol/L (22.0-30.0); Globulin 3.3 g/dL (1.3-3.2); Glucose 76 mg/dl (74-100); Total Protein,Serum 7.6 g/dl (6.3-8.2)
[2023-09-25] MEDS: ASPIRIN 81MG CHEWABLE TABLET 243 MG PO (19:22)
--- NOTE | 2023-09-25 19:24 | HMH.EDGENADL ---
Discharge Plan Disposition Patient Disposition: Home, Self-Care Condition: Good Prescriptions Prescriptions: New amoxicillin 500 mg capsule 500 mg PO BID 10 Days Qty: 20 0RF No Action cyclobenzaprine 10 mg tablet 10 mg PO TID PRN (Reason: severe right hand pain) 30 Days Qty: 90 1RF gabapentin 300 mg capsule 600 mg PO TID 30 Days Qty: 180 1RF naloxone 4 mg/actuation spray,non-aerosol 4 mg intranasal ONCE albuterol sulfate 90 mcg/actuation aerosol powdr breath activated 1 inh inhalation Q4-6H PRN (Reason: shortness of breath) Qty: 1 3RF promethazine-DM 6.25-15 mg/5 mL syrup 5 ml PO Q4-6H PRN (Reason: cough) Qty: 118 0RF fluticasone propionate [Flonase Allergy Relief] 50 mcg/actuation spray,suspension 1 spray intranasal DAILY Qty: 16 2RF Rx Instructions: administer into each nostril Referrals Follow up/Referrals: Damir Linn DO [Primary Care Provider] - See instructions Activity Restrictions/Add. Instructions Additional Instructions/Restrictions: Please take the antibiotic as prescribed. Please follow-up with your primary care doctor. Please return with any new or worsening symptoms Clinical Impressions Clinical Impression: Community acquired pneumonia Qualifiers: Laterality: right Lung location: lower lobe of lung Qualified Code(s): J18.9 - Pneumonia, unspecified organism Discharge ED Provider: Anibal Moser Adult HPI General Chief complaint: Chest Pain Stated complaint: chest pain Time Seen by Provider: 09/25/23 19:17 Mode of Arrival: Ambulatory Source of Information: Patient Limitations: No Limitations Description of Symptoms (Recalled from ER Triage Doc. by RN): pt c/o lt side chest pain and tightness with radiation down lt arm x couple of hours. pt took one 81mg ASA prior to arrival History of Present Illness HPI narrative: Patient complains of 1 episode of chest pain, that resolved spontaneously, substernal, radiating down his left arm, nonpleuritic, nonexertional, with no associated palpitations. No previous therapies. Does describe associated preceding URI symptoms and cough, congestion, productive. No associated shortness of breath. No known sick contacts. No recent travel. No family or personal history of DVT or PE. Pain is not positional in nature. Symptoms were acute in onset while at rest, resolved spontaneously. Does have history of tobacco use, IV drug use. Related Data Home Medications Medication Instructions Recorded Confirmed naloxone 4 mg/actuation nasal spray 4 mg intranasal ONCE 09/23/23 09/25/23 Previous Rx's Medication Instructions Recorded cyclobenzaprine 10 mg tablet 10 mg PO TID PRN severe right hand 07/28/23 pain 30 days #90 tabs gabapentin 300 mg capsule 600 mg PO TID 30 days #180 caps 09/10/23 albuterol sulfate 90 mcg/actuation 1 inh inhalation Q4-6H PRN 09/23/23 breath activated powder inhaler shortness of breath #1 ea fluticasone propionate 50 1 spray intranasal DAILY #16 grams 09/23/23 mcg/actuation nasal spray,suspension (Flonase Allergy Relief) promethazine-DM 6.25 mg-15 mg/5 mL 5 ml PO Q4-6H PRN cough #118 mL 09/23/23 oral syrup amoxicillin 500 mg capsule 500 mg PO BID 10 days #20 caps 09/25/23 Allergies Allergy/AdvReac Type Severity Reaction Status Date / Time No Known Allergies Allergy Verified 09/23/23 09:32 [facility] Disclaimer: The information contained in this section may have been updated after the patient was seen, as this information can be updated by other users. Medical History (Updated 09/25/23 @ 22:27 by Anibal Moser MD) Anxiety Bipolar disorder Insomnia Manic behavior Personality disorder Psychiatric diagnosis PTSD (post-traumatic stress disorder) Schizophrenia Suicidal behavior Surgical History (Updated 09/23/23 @ 09:33 by Mehdi Holland) No significant past surgical history Family History (Updated 09/23/23 @ 09:33 by Mehdi Holland) Other No significant family history Social History Smoking Status: Current every day smoker tobacco type: cigarettes packs per day: 1 alcohol intake: current substance use type: heroin and methamphetamine current occupational status: unemployed and disabled Travel in the last 8 weeks: None ROS Obtained: Yes Systems reviewed as appropriate & no additional complaints except as documented As per HPI Physical Exam General General appearance: alert and in no apparent distress Head Head exam: atraumatic and normocephalic Eye Eye exam: Present normal appearance Neck Neck exam: Present normal inspection Chest Chest inspection: Present normal inspection and symmetric chest wall rise Respiratory Respiratory exam: Present other (Bilateral rales); Absent respiratory distress Cardiovascular Cardiovascular exam: Present regular rate, normal rhythm and normal heart sounds; Absent irregular rhythm, systolic murmur or diastolic murmur Abdominal Exam Abdominal exam: Present soft Neurological Exam Neurological exam: Present alert and oriented X3 Psychiatric Psychiatric exam: Present normal affect and normal mood Skin Skin exam: Present warm and dry Medical Decision Making Medical Records Medical records reviewed: Yes I reviewed the patient's medical records. Martín Inquiry Pt receiving controlled substance: No Vital Signs: 09/25/23 18:55 09/25/23 19:01 09/25/23 19:31 Temperature 98.8 F Temperature Source Oral Pulse Rate 91 H 84 Pulse Rate [Right] 91 H Respiratory Rate 16 Blood Pressure 121/81 Blood Pressure [Right Arm] 144/88 H Blood Pressure Mean [Right Arm] 106 02 Sat by Pulse Oximetry 96 94 L Oxygen Delivery Method 09/25/23 20:00 09/25/23 20:31 09/25/23 21:30 Temperature Temperature Source Pulse Rate 74 77 60 Pulse Rate [Right] Respiratory Rate Blood Pressure 115/70 122/83 114/69 Blood Pressure [Right Arm] Blood Pressure Mean [Right Arm] 02 Sat by Pulse Oximetry 94 L 94 L 95 Oxygen Delivery Method 09/25/23 22:01 09/25/23 22:37 Temperature 98.6 F Temperature Source Oral Pulse Rate 67 85 Pulse Rate [Right] Respiratory Rate 18 Blood Pressure 131/81 147/105 H Blood Pressure [Right Arm] Blood Pressure Mean [Right Arm] 02 Sat by Pulse Oximetry 97 Oxygen Delivery Method Room Air Lab Data Lab Results 09/25/23 18:56: WBC 13.3 H, RBC 5.31, Hgb 17.3, Hct 50.2, MCV 94.5 H, MCH 32.5 H, MCHC 34.4, RDW 13.7, Plt Count 165, MPV 9.0, Neut % (Auto) 58.8, Lymph % (Auto) 31.5, Harrison % (Auto) 5.8, Eos % (Auto) 2.5, Baso % (Auto) 1.3, Neut # (Auto) 7.8, Lymph # (Auto) 4.2, Harrison # (Auto) 0.8, Eos # (Auto) 0.3, Baso # (Auto) 0.2, Sodium 140, Potassium 4.2, Chloride 105, Carbon Dioxide 29, Anion Gap 10.2, BUN 16, Creatinine 1.00, Estimated Creat Clear 147, Estimated GFR 82, Est GFR ( Amer) 99, Glucose 76, Calcium 8.5, Total Bilirubin 0.5, AST 45, ALT 38, Alkaline Phosphatase 64, Troponin I < 0.01, Total Protein 7.6, Albumin 4.3, Globulin 3.3 H, Albumin/Globulin Ratio 1.3 09/25/23 21:40: Troponin I < 0.01 09/25/23 18:56 09/25/23 18:56 Orders (Tests/Meds): ED MEDICATIONS Discontinued Medications Generic Name Dose Route Start Last Admin Trade Name Freq PRN Reason Stop Dose Admin Aspirin 243 mg 09/25/23 19:00 09/25/23 19:22 Aspirin 81mg Chewable Tablet PO 09/25/23 19:01 243 mg ONCE ONE Administration Sodium Chloride 10 ml 09/25/23 19:02 Sodium Chloride 0.9% 10ml Flush Syringe IV 10/25/23 19:01 NEEDED PRN Maintain IV Site ORDERS Category Date Time Status Chest XR 2 view (NOT portable) [XR chest 2V] Stat Exams 09/25/23 19:00 Completed Complete Blood Count Auto Diff Stat Lab 09/25/23 18:56 Completed Comprehensive Metabolic Panel Stat Lab 09/25/23 18:56 Completed Troponin I Q3H Lab 09/25/23 21:40 Completed Troponin I Stat Lab 09/25/23 18:56 Completed ECG initial [place] Routine Y 09/25/23 18:52 Completed HEART Score History (anamnesis): Slightly suspicious ECG: Normal Age: <45 years Risk factors: 3 or more risk factors Troponin: </= normal limit HEART Score: 2 Medical Decision Narrative: Patient with history and exam per above presenting for evaluation of chest pain Diagnoses considered include ACS, aortic dissection, pericarditis, PE, pneumothorax, pneumonia, GERD, costochondritis, referred pain, endocarditis ED workup and treatment included: ED MEDICATIONS Discontinued Medications Generic Name Dose Route Start Last Admin Trade Name Freq PRN Reason Stop Dose Admin Aspirin 243 mg 09/25/23 19:00 09/25/23 19:22 Aspirin 81mg Chewable Tablet PO 09/25/23 19:01 243 mg ONCE ONE Administration Sodium Chloride 10 ml 09/25/23 19:02 Sodium Chloride 0.9% 10ml Flush Syringe IV 10/25/23 19:01 NEEDED PRN Maintain IV Site ORDERS Category Date Time Status Chest XR 2 view (NOT portable) [XR chest 2V] Stat Exams 09/25/23 19:00 Completed Complete Blood Count Auto Diff Stat Lab 09/25/23 18:56 Completed Comprehensive Metabolic Panel Stat Lab 09/25/23 18:56 Completed Troponin I Q3H Lab 09/25/23 21:40 Completed Troponin I Stat Lab 09/25/23 18:56 Completed ECG initial [place] Routine Y 09/25/23 18:52 Completed Labs were independently interpreted by me, significant for leukocytosis to 13.3, troponins undetectable x 2 EKG was independently visualized and interpreted by me significant for normal sinus rhythm, normal axis, no acute ST changes Imaging was independently visualized and interpreted by me, significant for no focal consolidation, however per my interpretation, bilateral airspace disease Symptoms at this time are thought to be most consistent with community-acquired pneumonia, when correlated with patient's physical exam and history of present illness I discussed my clinical impression with patient and answered all questions. At this time, given reassuring workup and exam, I discussed that I have a low index of suspicion for any acute pathology necessitating inpatient management. Specific return precautions were given, with understanding and agreement. Patient will follow up with primary care provider as needed. Patient was prescribed course of amoxicillin 500 mg p.o. twice daily. Critical Care Critical Care Time Critical Care Time: No
[2023-09-25 19:49] LABS: Troponin I < 0.01 ng/ml (0.00-0.034)
[2023-09-25 22:10] LABS: Troponin I < 0.01 ng/ml (0.00-0.034)
== END 2023-09-25 22:38 | disposition home or self-care (01) ==
PROVIDERS: Emergency Provider Emergency Medicine; PCP Internal Medicine
DX: R07.9 Chest pain, unspecified (principal); J18.9 Pneumonia, unspecified organism; M79.602 Pain in left arm; F17.210 Nicotine dependence, cigarettes, uncomplicated
CPT/HCPCS: 71046; 80053; 84484; 85025; 93005; 99285

== ENCOUNTER 2024-03-07 18:00 | Outpatient (CLI) | payer OTHER, SELFPAY ==
[2024-03-07 18:47] LABS: Basophils # 0.2 K/mm3 (0-0.2); Basophils % 1.8 % (0.1-2.0); Eosinophils # 0.2 K/mm3 (0.0-0.4); Eosinophils % 2.5 % (0.1-12.0); Hematocrit 53.9 % (42.0-52.0); Hemoglobin 17.9 g/dL (14.1-18.0); Lymphocytes # 4.3 K/mm3 (0.7-4.5); Mean Corpuscular HGB Conc 33.2 g/dL (31.8-35.4); Mean Corpuscular Hemoglobin 32.4 pg (27.0-31.2); Mean Corpuscular Volume 97.5 fl (80-94); Mean Platelet Volume 10.6 fl (7.4-10.4); Monocytes # 0.7 K/mm3 (0.1-1.0); Monocytes % 7.3 % (1.7-9.3); Neutrophils # 4.3 K/mm3 (1.8-7.8); Neutrophils % 44.4 % (37.0-80.0); Platelet Count 249 K/mm3 (142-424); Red Blood Count 5.52 M/mm3 (4.60-6.20); Red Cell Distribution Width 13.5 % (11.5-17.5); White Blood Count 9.7 K/mm3 (4.8-10.8)
[2024-03-07 18:52] LABS: Alanine Aminotransferase 23 U/L (12-78); Albumin Level 4.5 g/dl (3.5-5.0); Albumin/Globulin Ratio 1.6 (1.1-1.8); Alkaline Phosphatase 62 U/L (38-126); Aspartate Amino Transferase 30 U/L (17-59); Bilirubin,Total 0.5 mg/dl (0.2-1.3); Blood Urea Nitrogen 25 mg/dl (9-20); Calcium 9.6 mg/dl (8.4-10.2); Carbon Dioxide 22 mmol/L (22.0-30.0); Chloride 101 mmol/L (98-107); Estimated Glomerular Filt Rate 73 ml/min (>60); GFR (African American) 88 ML/MIN (>60); Globulin 2.8 g/dL (1.3-3.2); Glucose 59 mg/dl (74-100); Sodium 140 mmol/L (136-145); Total Protein,Serum 7.3 g/dl (6.3-8.2)
[2024-03-07 20:27] LABS: Hemoglobin A1C 5.2 % (4.0-6.0)
== END 2024-03-07 23:59 | disposition home or self-care (01) ==
LOC: LAB.DROPOF 03-08 08:16
PROVIDERS: PCP Internal Medicine; Visit Provider Internal Medicine
DX: R53.83 Other fatigue (principal); B34.9 Viral infection, unspecified
CPT/HCPCS: 80053; 83036; 85025; 87522

== ENCOUNTER 2024-04-26 01:36 | Observation (INO) | payer OTHER, SELFPAY ==
[2024-04-26] VITALS (16 sets, daily range): BP systolic 105–177; BP diastolic 56–109; PULSE 65–92; RESP 16–28; TEMP 37.4–37.6; O2SAT 94–100; BMI 26.1; BMI 33.0
--- NOTE | 2024-04-26 01:42 | HMH.EDGENADL ---
Discharge Plan Disposition Patient Disposition: Admitted Clinical Impressions Clinical Impression: Methamphetamine-induced psychotic disorder, Agitation, Hypokalemia, Rhabdomyolysis, Abnormal transaminases Discharge ED Provider: Addie Brannon General Adult HPI <Addie Brannon MD - Last Filed: 04/26/24 07:23> General Chief complaint: Altered Mental Status Stated complaint: AMS Time Seen by Provider: 04/26/24 01:41 History of Present Illness HPI narrative: 43-year-old male presents to the ER with law enforcement for hallucinations, paranoia, potential stimulant intoxication. Patient has a history of previous psychiatric diagnoses and law enforcement who is familiar with the patient states he gets extremely paranoid when on stimulants. Reportedly in the past he has previously used meth. Patient reports earlier today he smoked joint but believes it was laced with something. He is sweaty, believes people are following him, reports that he was tied to a bed for multiple days but was able to escape. Patient carried a hammer with him to the ER the first time he presented, however he did not register at that time since he presented independently and immediately left the premises. He was brought back by law enforcement. Patient is requesting to be brought to [facility]. Patient denies wanting to hurt others but was carrying a hammer around. He denies suicidal ideation however made aggressive statements stating he was going to bite people's ears off, also stated just shoot me and end it . Related Data Home Medications ?Medication ?Instructions ?Recorded ?Confirmed No Known Home Medications 04/26/24 04/26/24 Allergies Allergy/AdvReac Type Severity Reaction Status Date / Time No Known Allergies Allergy Verified 03/07/24 08:41 [facility] <Addie Brannon MD - Last Filed: 04/26/24 07:23> [facility] Disclaimer: The information contained in this section may have been updated after the patient was seen, as this information can be updated by other users. Medical History Psychiatric diagnosis Bart has multiple psychiatric issues including bipolar disorder, schizophrenia, suicidality etc. I can actually understand why Bart left [facility]. He has been locked up in the past and has a great fear of being locked up again. When they suggested inpatient hospitalization for some of his psychiatric issues this is what he was thinking about. He has agreed to go to [facility]. Please see below. Insomnia Bart has insomnia. This is multifactorial probably related to him stopping the multiple substances that he has been abusing, his pain, his psychiatric issues and other medical issues. I have given him cyclobenzaprine 10 mg at at bedtime. I am hoping this will help both his sleep and his neuropathic pain. Suicidal behavior Bipolar disorder Manic behavior Personality disorder Schizophrenia PTSD (post-traumatic stress disorder) Anxiety Surgical History No significant past surgical history Family History Other No significant family history Social History Smoking Status: Current every day smoker tobacco type: cigarettes packs per day: 1 alcohol intake: current alcohol intake frequency: a few times a week substance use type: heroin and methamphetamine current occupational status: unemployed and disabled Travel in the last 8 weeks: None <Addie Branonn MD - Last Filed: 04/26/24 07:23> ROS Obtained: Yes All systems reviewed & no additional complaints except as documented and Yes other (ROS limited secondary to paranoia but patient denied any symptoms of illnes) Physical Exam <Addie Brannon MD - Last Filed: 04/26/24 07:23> General General appearance: alert, appears intoxicated and anxious Comment: Diaphoretic Head Head exam: atraumatic and normocephalic Eye Eye exam: Present PERRL and EOMI ENT ENT exam: Present mucous membranes moist Neck Neck exam: Present normal inspection and full ROM Chest Chest inspection: Present symmetric chest wall rise Respiratory Respiratory exam: Present normal lung sounds bilaterally; Absent respiratory distress, wheezes or stridor Cardiovascular Cardiovascular exam: Present normal rhythm and tachycardia Abdominal Exam Abdominal exam: Present soft; Absent distention or tenderness Extremities Exam Extremities exam: Present full ROM Back Exam Back exam: Present other (Few superficial abrasions on the back) Neurological Exam Neurological exam: Present alert and oriented X3; Absent motor sensory deficit Psychiatric Psychiatric exam: Present agitated, anxious, suicidal ideation (Telling lump receiver just shoot me and ended ) and other (Paranoid) Skin Skin exam: Present warm and dry Medical Decision Making <Addie Brannon MD - Last Filed: 04/26/24 07:23> Medical Records Medical records reviewed: Yes I reviewed the patient's medical records. MR Comment: Patient has been seen by Dr. Linn for cannabis use disorder, hepatitis C. Patient has been evaluated by orthopedics for left hand pain. Martín Inquiry Pt receiving controlled substance: No Vital Signs: 04/26/24 01:37 04/26/24 02:52 04/26/24 03:00 Temperature 99.7 F H 99.4 F Temperature Source Oral Axillary Pulse Rate 92 H 91 H Pulse Rate [Left] 80 Respiratory Rate 28 H 20 21 Blood Pressure 107/57 L 107/57 L Blood Pressure [Right Arm] 134/93 H Blood Pressure Mean 74 Blood Pressure Mean [Right Arm] 106 02 Sat by Pulse Oximetry 97 95 94 L Oxygen Delivery Method Room Air Nasal Cannula Oxygen Flow Rate (LPM) 2 04/26/24 03:31 04/26/24 04:00 04/26/24 05:00 Temperature Temperature Source Pulse Rate 80 77 Pulse Rate [Left] Respiratory Rate 22 19 19 Blood Pressure 106/56 L 123/59 L 105/70 L Blood Pressure [Right Arm] Blood Pressure Mean 65 74 79 Blood Pressure Mean [Right Arm] 02 Sat by Pulse Oximetry 97 99 Oxygen Delivery Method Oxygen Flow Rate (LPM) 04/26/24 05:30 04/26/24 06:01 04/26/24 06:30 Temperature Temperature Source Pulse Rate 86 77 68 Pulse Rate [Left] Respiratory Rate 17 16 Blood Pressure 112/65 119/69 119/68 Blood Pressure [Right Arm] Blood Pressure Mean 83 85 81 Blood Pressure Mean [Right Arm] 02 Sat by Pulse Oximetry 100 100 100 Oxygen Delivery Method Oxygen Flow Rate (LPM) 04/26/24 07:01 04/26/24 07:31 04/26/24 08:01 Temperature Temperature Source Pulse Rate 70 67 74 Pulse Rate [Left] Respiratory Rate 17 Blood Pressure 148/68 H 158/80 H 168/81 H Blood Pressure [Right Arm] Blood Pressure Mean 84 106 107 Blood Pressure Mean [Right Arm] 02 Sat by Pulse Oximetry 100 100 100 Oxygen Delivery Method Oxygen Flow Rate (LPM) 04/26/24 08:31 04/26/24 09:01 04/26/24 09:31 Temperature Temperature Source Pulse Rate 65 69 71 Pulse Rate [Left] Respiratory Rate Blood Pressure 177/80 H 169/109 H 116/99 H Blood Pressure [Right Arm] Blood Pressure Mean 108 129 104 Blood Pressure Mean [Right Arm] 02 Sat by Pulse Oximetry 100 100 99 Oxygen Delivery Method Oxygen Flow Rate (LPM) 04/26/24 11:15 Temperature 99.4 F Temperature Source Axillary Pulse Rate 74 Pulse Rate [Left] Respiratory Rate 20 Blood Pressure 135/87 Blood Pressure [Right Arm] Blood Pressure Mean Blood Pressure Mean [Right Arm] 02 Sat by Pulse Oximetry Oxygen Delivery Method Room Air Oxygen Flow Rate (LPM) Lab Data Lab Results 04/26/24 02:25: WBC 12.2 H, RBC 4.85, Hgb 15.4, Hct 46.4, MCV 95.6 H, MCH 31.8 H, MCHC 33.2, RDW 13.5, Plt Count 185, MPV 9.4, Neut % (Auto) 81.6 H, Lymph % (Auto) 11.5, [place] % (Auto) 5.7, Eos % (Auto) 0.7, Baso % (Auto) 0.5, Neut # (Auto) 9.9 H, Lymph # (Auto) 1.4, [place] # (Auto) 0.7, Eos # (Auto) 0.1, Baso # (Auto) 0.1, PT 11.2, INR 1.00, Sodium 140, Potassium 3.1 L, Chloride 107, Carbon Dioxide 25, Anion Gap 11.1, BUN 16, Creatinine 1.20, Estimated Creat Clear 127, Estimated GFR 66, Est GFR ( Amer) 80, Glucose 109 H, Calcium 9.1, Total Bilirubin 0.9, AST 168 H, ALT 425 H*, Alkaline Phosphatase 85, Total Creatine Kinase 290 H, Troponin I < 0.01, Total Protein 7.5, Albumin 4.1, Globulin 3.4 H, Albumin/Globulin Ratio 1.2, Salicylates < 1.0 L, Acetaminophen < 10 L, Plasma/Serum Alcohol < 10 04/26/24 02:34: Urine Color Yellow, Urine Appearance Clear, Urine pH 6.0, Ur Specific [place] >= 1.030, Urine Protein Trace, Urine Glucose (UA) Trace, Urine Ketones Negative, Urine Blood Negative, Urine Nitrate Negative, Urine Bilirubin Negative, Urine Urobilinogen 0.2, Ur Leukocyte Esterase Negative, Urine RBC 3-5, Urine WBC Occasional, Ur Squamous Epith Cells 3-5, Urine Bacteria Trace, Hyaline Casts Occ, Urine Mucus Trace, Urine Sperm Occ, Urine Opiates Screen Negative, Urine Methadone Screen Negative, Ur Barbituates Screen Negative, Ur Phencyclidine Scrn Negative, Ur Amphetamines Screen [employer] Of Girls, U Benzodiazepines Scrn Negative, Urine Cocaine Screen Negative, U Marijuana (THC) Screen Positive H 04/26/24 05:19: Troponin I < 0.01 04/26/24 10:35: Lactate 0.7, Total Creatine Kinase 196 H D 04/26/24 02:25 04/26/24 02:25 Orders (Tests/Meds): ED MEDICATIONS Discontinued Medications Generic Name Dose Route Start Last Admin Trade Name Freq PRN Reason Stop Dose Admin Droperidol 5 mg 04/26/24 01:41 04/26/24 01:56 Droperidol 5mg/2ml Vial IM 04/26/24 01:42 5 mg ONCE ONE Administration Droperidol 5 mg 04/26/24 02:21 04/26/24 02:23 Droperidol 5mg/2ml Vial IV 04/26/24 02:22 5 mg ONCE ONE Administration Lactated Ringer's 1,000 mls @ 999 mls/hr 04/26/24 01:53 04/26/24 02:40 Lactated Ringer's 1000 Ml Bag IV 04/26/24 02:53 999 mls/hr .Q1H1M ONE Administration Midazolam HCl 5 mg 04/26/24 01:41 04/26/24 02:01 Midazolam 2mg/2ml Vial IM 04/26/24 01:42 5 mg ONCE ONE Administration Midazolam HCl 5 mg 04/26/24 02:03 04/26/24 02:06 Midazolam 5mg/Ml 1ml Vial IM 04/26/24 02:04 5 mg ONCE ONE Administration Midazolam HCl 2 mg 04/26/24 03:37 04/26/24 03:40 Midazolam 2mg/2ml Vial IV 04/26/24 03:38 2 mg ONCE ONE Administration ORDERS Category Date Time Status CT head/brain wo con Stat Cat Scan 04/26/24 01:53 Completed Acetaminophen Stat Lab 04/26/24 02:25 Completed CBC w/Auto Diff [Complete Blood Count Auto Diff] Stat Lab 04/26/24 02:25 Completed CK [Creatine Kinase] Stat Lab 04/26/24 02:25 Completed CK [Creatine Kinase] Stat Lab 04/26/24 10:35 Completed CMP [Comprehensive Metabolic Panel] Stat Lab 04/26/24 02:25 Completed Ethanol [Ethyl Alcohol] Stat Lab 04/26/24 02:25 Completed Lactic Acid Stat Lab 04/26/24 10:35 Completed PT INR [Prothrombin Time INR] Stat Lab 04/26/24 02:25 Completed Salicylate Stat Lab 04/26/24 02:25 Completed Trop I [Troponin I] Stat Lab 04/26/24 02:25 Completed Troponin I Q3H Lab 04/26/24 05:19 Completed UDS [Drug Screen,Urine] Stat Lab 04/26/24 02:34 Completed Urinalysis and Microscopic Stat Lab 04/26/24 02:34 Completed Medical Decision Narrative: In summary, this 43-year-old male presents to the emergency department today with paranoia, intoxication. On initial evaluation patient is tachycardic, anxious, agitated, no findings of trauma, severely paranoid, diaphoretic. Patient was erratic and making threatening comments. In order to keep staff and patient safe, he received intramuscular droperidol and Versed. He was still combative and belligerent after the first doses, telling police to shoot me and just end it . Differential diagnosis includes but is not limited to intoxication, electrolyte abnormality, psychiatric disorder, intracranial bleed or mass, suicidal/homicidal ideation. Based on these concerns, I ordered CT imaging, serum labs, urine studies. ECG personally interpreted demonstrates sinus tachycardia, rate 114, normal NE and QTc, normal axis, no STEMI. Significant baseline artifact, repeat ECG will be performed when patient is less combative. Patient received antipsychotics and benzodiazepines for treatment initially, once he was safe and appropriately sedated, he received IV fluids. Labs personally reviewed demonstrate leukocytosis, no anemia, normal platelets, normal PT/INR, patient's ALT is elevated at 425, this is new since February. AST is also elevated at 168, alk phos normal, bilirubin normal, troponin undetectable, CK2 90, not rhabdo, UA negative for findings of infection, UDS positive for THC, amphetamines were not quantifiable on our screen which generally means they are undetectably high. Unfortunately there was not enough urine left for the send out. Given difficulty obtaining initial urine sample and patient's presentation consistent with amphetamine intoxication, I believe this is likely positive and I am not going to attempt repeat catheterization for additional urine for send out at this time. Repeat ECG personally interpreted demonstrates sinus rhythm, normal axis, no STEMI, normal NE and QTc. CT imaging personally interpreted demonstrate no acute intracranial bleed or other intracranial abnormality. See radiology read for final interpretation. Patient continues to metabolize his intoxication. He was placed into ED observation at 0330. He woke up once and was more oriented but immediately fell back asleep. 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 He is protecting his airway. He remains in 4 point restraints due to combativeness and inability to be redirected. He will continue to be monitored for improvement and clinical sobriety. Patient handed off to Dr. Harrell for continued management and disposition. <Nelly Harrell, DO - Last Filed: 04/26/24 14:46> Vital Signs: 04/26/24 01:37 04/26/24 02:52 04/26/24 03:00 Temperature 99.7 F H 99.4 F Temperature Source Oral Axillary Pulse Rate 92 H 91 H Pulse Rate [Left] 80 Respiratory Rate 28 H 20 21 Blood Pressure 107/57 L 107/57 L Blood Pressure [Right Arm] 134/93 H Blood Pressure Mean 74 Blood Pressure Mean [Right Arm] 106 02 Sat by Pulse Oximetry 97 95 94 L Oxygen Delivery Method Room Air Nasal Cannula Oxygen Flow Rate (LPM) 2 04/26/24 03:31 04/26/24 04:00 04/26/24 05:00 Temperature Temperature Source Pulse Rate 80 77 Pulse Rate [Left] Respiratory Rate 22 19 19 Blood Pressure 106/56 L 123/59 L 105/70 L Blood Pressure [Right Arm] Blood Pressure Mean 65 74 79 Blood Pressure Mean [Right Arm] 02 Sat by Pulse Oximetry 97 99 Oxygen Delivery Method Oxygen Flow Rate (LPM) 04/26/24 05:30 04/26/24 06:01 04/26/24 06:30 Temperature Temperature Source Pulse Rate 86 77 68 Pulse Rate [Left] Respiratory Rate 17 16 Blood Pressure 112/65 119/69 119/68 Blood Pressure [Right Arm] Blood Pressure Mean 83 85 81 Blood Pressure Mean [Right Arm] 02 Sat by Pulse Oximetry 100 100 100 Oxygen Delivery Method Oxygen Flow Rate (LPM) 04/26/24 07:01 04/26/24 07:31 04/26/24 08:01 Temperature Temperature Source Pulse Rate 70 67 74 Pulse Rate [Left] Respiratory Rate 17 Blood Pressure 148/68 H 158/80 H 168/81 H Blood Pressure [Right Arm] Blood Pressure Mean 84 106 107 Blood Pressure Mean [Right Arm] 02 Sat by Pulse Oximetry 100 100 100 Oxygen Delivery Method Oxygen Flow Rate (LPM) 04/26/24 08:31 04/26/24 09:01 04/26/24 09:31 Temperature Temperature Source Pulse Rate 65 69 71 Pulse Rate [Left] Respiratory Rate Blood Pressure 177/80 H 169/109 H 116/99 H Blood Pressure [Right Arm] Blood Pressure Mean 108 129 104 Blood Pressure Mean [Right Arm] 02 Sat by Pulse Oximetry 100 100 99 Oxygen Delivery Method Oxygen Flow Rate (LPM) 04/26/24 11:15 Temperature 99.4 F Temperature Source Axillary Pulse Rate 74 Pulse Rate [Left] Respiratory Rate 20 Blood Pressure 135/87 Blood Pressure [Right Arm] Blood Pressure Mean Blood Pressure Mean [Right Arm] 02 Sat by Pulse Oximetry Oxygen Delivery Method Room Air Oxygen Flow Rate (LPM) Lab Data Lab Results 04/26/24 02:25: WBC 12.2 H, RBC 4.85, Hgb 15.4, Hct 46.4, MCV 95.6 H, MCH 31.8 H, MCHC 33.2, RDW 13.5, Plt Count 185, MPV 9.4, Neut % (Auto) 81.6 H, Lymph % (Auto) 11.5, [place] % (Auto) 5.7, Eos % (Auto) 0.7, Baso % (Auto) 0.5, Neut # (Auto) 9.9 H, Lymph # (Auto) 1.4, [place] # (Auto) 0.7, Eos # (Auto) 0.1, Baso # (Auto) 0.1, PT 11.2, INR 1.00, Sodium 140, Potassium 3.1 L, Chloride 107, Carbon Dioxide 25, Anion Gap 11.1, BUN 16, Creatinine 1.20, Estimated Creat Clear 127, Estimated GFR 66, Est GFR ( Amer) 80, Glucose 109 H, Calcium 9.1, Total Bilirubin 0.9, AST 168 H, ALT 425 H*, Alkaline Phosphatase 85, Total Creatine Kinase 290 H, Troponin I < 0.01, Total Protein 7.5, Albumin 4.1, Globulin 3.4 H, Albumin/Globulin Ratio 1.2, Salicylates < 1.0 L, Acetaminophen < 10 L, Plasma/Serum Alcohol < 10 04/26/24 02:34: Urine Color Yellow, Urine Appearance Clear, Urine pH 6.0, Ur Specific [place] >= 1.030, Urine Protein Trace, Urine Glucose (UA) Trace, Urine Ketones Negative, Urine Blood Negative, Urine Nitrate Negative, Urine Bilirubin Negative, Urine Urobilinogen 0.2, Ur Leukocyte Esterase Negative, Urine RBC 3-5, Urine WBC Occasional, Ur Squamous Epith Cells 3-5, Urine Bacteria Trace, Hyaline Casts Occ, Urine Mucus Trace, Urine Sperm Occ, Urine Opiates Screen Negative, Urine Methadone Screen Negative, Ur Barbituates Screen Negative, Ur Phencyclidine Scrn Negative, Ur Amphetamines Screen [employer] Of Girls, U Benzodiazepines Scrn Negative, Urine Cocaine Screen Negative, U Marijuana (THC) Screen Positive H 04/26/24 05:19: Troponin I < 0.01 04/26/24 10:35: Lactate 0.7, Total Creatine Kinase 196 H D Orders (Tests/Meds): ED MEDICATIONS Discontinued Medications Generic Name Dose Route Start Last Admin Trade Name Freq PRN Reason Stop Dose Admin Droperidol 5 mg 04/26/24 01:41 04/26/24 01:56 Droperidol 5mg/2ml Vial IM 04/26/24 01:42 5 mg ONCE ONE Administration Droperidol 5 mg 04/26/24 02:21 04/26/24 02:23 Droperidol 5mg/2ml Vial IV 04/26/24 02:22 5 mg ONCE ONE Administration Lactated Ringer's 1,000 mls @ 999 mls/hr 04/26/24 01:53 04/26/24 02:40 Lactated Ringer's 1000 Ml Bag IV 04/26/24 02:53 999 mls/hr .Q1H1M ONE Administration Midazolam HCl 5 mg 04/26/24 01:41 04/26/24 02:01 Midazolam 2mg/2ml Vial IM 04/26/24 01:42 5 mg ONCE ONE Administration Midazolam HCl 5 mg 04/26/24 02:03 04/26/24 02:06 Midazolam 5mg/Ml 1ml Vial IM 04/26/24 02:04 5 mg ONCE ONE Administration Midazolam HCl 2 mg 04/26/24 03:37 04/26/24 03:40 Midazolam 2mg/2ml Vial IV 04/26/24 03:38 2 mg ONCE ONE Administration ORDERS Category Date Time Status CT head/brain wo con Stat Cat Scan 04/26/24 01:53 Completed Acetaminophen Stat Lab 04/26/24 02:25 Completed CBC w/Auto Diff [Complete Blood Count Auto Diff] Stat Lab 04/26/24 02:25 Completed CK [Creatine Kinase] Stat Lab 04/26/24 02:25 Completed CK [Creatine Kinase] Stat Lab 04/26/24 10:35 Completed CMP [Comprehensive Metabolic Panel] Stat Lab 04/26/24 02:25 Completed Ethanol [Ethyl Alcohol] Stat Lab 04/26/24 02:25 Completed Lactic Acid Stat Lab 04/26/24 10:35 Completed PT INR [Prothrombin Time INR] Stat Lab 04/26/24 02:25 Completed Salicylate Stat Lab 04/26/24 02:25 Completed Trop I [Troponin I] Stat Lab 04/26/24 02:25 Completed Troponin I Q3H Lab 04/26/24 05:19 Completed UDS [Drug Screen,Urine] Stat Lab 04/26/24 02:34 Completed Urinalysis and Microscopic Stat Lab 04/26/24 02:34 Completed Medical Decision Narrative: In summary, this 43-year-old male presents to the emergency department today with paranoia, intoxication. On initial evaluation patient is tachycardic, anxious, agitated, no findings of trauma, severely paranoid, diaphoretic. Patient was erratic and making threatening comments. In order to keep staff and patient safe, he received intramuscular droperidol and Versed. He was still combative and belligerent after the first doses, telling police to shoot me and just end it . Differential diagnosis includes but is not limited to intoxication, electrolyte abnormality, psychiatric disorder, intracranial bleed or mass, suicidal/homicidal ideation. Based on these concerns, I ordered CT imaging, serum labs, urine studies. ECG personally interpreted demonstrates sinus tachycardia, rate 114, normal NE and QTc, normal axis, no STEMI. Significant baseline artifact, repeat ECG will be performed when patient is less combative. Patient received antipsychotics and benzodiazepines for treatment initially, once he was safe and appropriately sedated, he received IV fluids. Labs personally reviewed demonstrate leukocytosis, no anemia, normal platelets, normal PT/INR, patient's ALT is elevated at 425, this is new since February. AST is also elevated at 168, alk phos normal, bilirubin normal, troponin undetectable, CK2 90, not rhabdo, UA negative for findings of infection, UDS positive for THC, amphetamines were not quantifiable on our screen which generally means they are undetectably high. Unfortunately there was not enough urine left for the send out. Given difficulty obtaining initial urine sample and patient's presentation consistent with amphetamine intoxication, I believe this is likely positive and I am not going to attempt repeat catheterization for additional urine for send out at this time. Repeat ECG personally interpreted demonstrates sinus rhythm, normal axis, no STEMI, normal NE and QTc. CT imaging personally interpreted demonstrate no acute intracranial bleed or other intracranial abnormality. See radiology read for final interpretation. Patient continues to metabolize his intoxication. He was placed into ED observation at 0330. He woke up once and was more oriented but immediately fell back asleep. 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 He is protecting his airway. He remains in 4 point restraints due to combativeness and inability to be redirected. He will continue to be monitored for improvement and clinical sobriety. Patient handed off to Dr. Harrell for continued management and disposition. DO Julio Cesar: I assumed care of the patient at 0700 and continued ED observation status. On multiple subsequent reassessments, he continues to be very somnolent after receiving medications above. He is not able to answer orientation questions on multiple subsequent assessments. Restraints were continued, as he is very confused, disoriented, and potentially a threat to himself. We had a one-to-one sitter and continue to monitor him throughout this time. He had stable vital signs the entire time. He was found to have mild leukocytosis, transaminitis, mildly elevated CK (which improved on repeat a lab evaluation) and mild hypokalemia. At 10:45 AM, I determined that the patient had had no significant improvement in his encephalopathy and felt that he was appropriate for admission for continued monitoring in the setting of methamphetamine induced psychosis, encephalopathy, and mild rhabdomyolysis. I called and had an interactive discussion with the hospitalist who admitted the patient for further evaluation and management. Total time in ED observation with 7 hours 15 min. Critical Care <Addie Brannon MD - Last Filed: 04/26/24 07:23> Critical Care Time Critical Care Time: Yes Attestation: On 04/26/24, the high probability of a clinically significant, sudden or life threatening deterioration of the following system(s) (neurologic, cardiac) required my full and direct attention, intervention and personal management. The time I documented below is in addition to time spent performing reported procedures but includes the following listed in this critical care notation. Total Time Total Critical Care Time: 35
--- NOTE | 2024-04-26 01:48 | PC.NURSE ---
[facility] verified dose of Versed and Droperidol with Lisa Livingston Sup
--- NOTE | 2024-04-26 01:53 | CT_ITS ---
PROCEDURE INFORMATION: Exam: CT Head Without Contrast Exam date and time: 04/26/2024 2:51 AM Age: 43 years old Clinical indication: Altered mental status/memory loss; Additional info: AMS TECHNIQUE: Imaging protocol: Computed tomography of the head without contrast. Radiation optimization: All CT scans at this facility use at least one of these dose optimization techniques: automated exposure control; mA and/or kV adjustment per patient size (includes targeted exams where dose is matched to clinical indication); or iterative reconstruction. COMPARISON: CT HEAD/BRAIN WO CON 12/29/2022 11:46 FINDINGS: Brain: Normal. No hemorrhage. Unremarkable white matter. No mass effect. Cerebral ventricles: No ventriculomegaly. Paranasal sinuses: Mild mucosal thickening in the paranasal sinuses. Mastoid air cells: Small right mastoid effusion. Bones: Unremarkable. No acute fracture. Soft tissues: Unremarkable. IMPRESSION: No acute intracranial findings. If there is high clinical concern for acute infarction, consider MRI for further evaluation. ASSESSMENT: ASPECTS score ([place] Stroke Program Early CT Score) is 10.
[2024-04-26] MEDS: droPERidol 5MG/2ML VIAL 5 MG IM (01:56)
[2024-04-26] MEDS: MIDAZOLAM 2MG/2ML VIAL 5 MG IM (02:01)
[2024-04-26] MEDS: MIDAZOLAM 5MG/ML 1ML VIAL 5 MG IM (02:06)
--- NOTE | 2024-04-26 02:17 | ECG_ITS ---
APPROVED REPORT Exam: Resting ECG HR:114 bpm ECG Measurements Heart Rate 114 AXES QRSd 91 QRS 72 QT 366 T 91 QTc 434 Conclusion SUPRAVENTRICULAR TACHYCARDIA MODERATE ST DEPRESSION [0.05+ mV ST DEPRESSION] ABNORMAL ECG No STEMI, difficult to interpret secondary to baseline artifact Electronically signed by : GEORGES CHILDS, 04/26/2024 07:56:19
[2024-04-26] MEDS: droPERidol 5MG/2ML VIAL 5 MG IV (02:23)
[2024-04-26 02:39] LABS: Microscopic, Urine URINE MICROSCOPIC (MICROSCOPIC)
[2024-04-26 02:40] LABS: Appearance,Urine CLEAR (Clear); Blood, Urine Negative (Negative); Color,Urine YELLOW (Yellow); Glucose,Urine (UA) TRACE (Negative); Ketones,Urine Negative (Negative); Leukocyte Esterase,Urine Negative (Negative); Nitrate,Urine Negative (Negative); Protein,Urine TRACE (Negative); Specific Gravity, Urine >= 1.030 (1.005-1.030); Urobilinogen,Urine 0.2 EU/dl (0.2)
[2024-04-26] MEDS: LACTATED RINGERS 1000ML 1,000 ML 999 ML IV (02:40)
[2024-04-26 02:41] LABS: Basophils # 0.1 K/mm3 (0-0.2); Basophils % 0.5 % (0.1-2.0); Eosinophils # 0.1 K/mm3 (0.0-0.4); Eosinophils % 0.7 % (0.1-12.0); Hematocrit 46.4 % (42.0-52.0); Hemoglobin 15.4 g/dL (14.1-18.0); Lymphocytes # 1.4 K/mm3 (0.7-4.5); Lymphocytes % 11.5 % (10-50); Mean Corpuscular HGB Conc 33.2 g/dL (31.8-35.4); Mean Corpuscular Hemoglobin 31.8 pg (27.0-31.2); Mean Corpuscular Volume 95.6 fl (80-94); Mean Platelet Volume 9.4 fl (7.4-10.4); Monocytes # 0.7 K/mm3 (0.1-1.0); Monocytes % 5.7 % (1.7-9.3); Neutrophils # 9.9 K/mm3 (1.8-7.8); Neutrophils % 81.6 % (37.0-80.0); Platelet Count 185 K/mm3 (142-424); Red Blood Count 4.85 M/mm3 (4.60-6.20); Red Cell Distribution Width 13.5 % (11.5-17.5); White Blood Count 12.2 K/mm3 (4.8-10.8)
[2024-04-26 02:48] LABS: Prothrombin Time 11.2 seconds (10.1-12.5)
[2024-04-26 02:49] LABS: Ethyl Alcohol < 10 mg/dl (0-10)
[2024-04-26 02:54] LABS: Barbiturates Screen,Urine Negative ng/ml (<200); Benzodiazepines Screen,Urine Negative ng/ml (<200); Bilirubin,Urine Negative (Negative)
[2024-04-26 02:55] LABS: Cannabinoid Screen,Urine Positive ng/ml (<50)
[2024-04-26 02:56] LABS: Cocaine Screen,Urine Negative ng/ml (<300); Methadone Screen,Urine Negative ng/ml (<300)
[2024-04-26 02:57] LABS: Opiate Screen,Urine Negative ng/ml (<300); Phencyclidine Screen,Urine Negative ng/ml (<25)
[2024-04-26 02:58] LABS: Alanine Aminotransferase 425 U/L (12-78); Albumin Level 4.1 g/dl (3.5-5.0); Albumin/Globulin Ratio 1.2 (1.1-1.8); Alkaline Phosphatase 85 U/L (38-126); Anion Gap 11.1 mEq/L (5-15); Aspartate Amino Transferase 168 U/L (17-59); Bilirubin,Total 0.9 mg/dl (0.2-1.3); Blood Urea Nitrogen 16 mg/dl (9-20); Calcium 9.1 mg/dl (8.4-10.2); Carbon Dioxide 25 mmol/L (22.0-30.0); Chloride 107 mmol/L (98-107); Creatine Kinase 290 U/L (55-170); Creatinine Clearance Estimated 127 mL/min (50-200); Estimated Glomerular Filt Rate 66 ml/min (>60); GFR (African American) 80 ML/MIN (>60); Globulin 3.4 g/dL (1.3-3.2); Glucose 109 mg/dl (74-100); Potassium 3.1 mmoL/L (3.5-5.1); Sodium 140 mmol/L (136-145); Total Protein,Serum 7.5 g/dl (6.3-8.2)
--- NOTE | 2024-04-26 03:01 | PC.NURSE ---
Pt is resting at this time.
--- NOTE | 2024-04-26 03:04 | ECG_ITS ---
APPROVED REPORT Exam: Resting ECG HR:93 bpm ECG Measurements Heart Rate 93 AXES LA 129 P -6 QRSd 98 QRS 86 QT 377 T 24 QTc 428 Conclusion SINUS RHYTHM NONSPECIFIC T-WAVE ABNORMALITY No STEMI Electronically signed by : GEORGES CHILDS, 04/26/2024 07:54:13
[2024-04-26 03:11] LABS: Bacteria,Urine Trace /lpf; Hyaline Casts,Urine OCC #/lpf (0); Mucus,Urine Trace /lpf; Sperm,Urine OCC /lpf; WBC,Urine Occasional #/hpf (0-3)
[2024-04-26 03:13] LABS: Acetaminophen < 10 ug/ml (10-30); Salicylate < 1.0 mg/dL (2.0-20.0)
[2024-04-26 03:24] LABS: Troponin I < 0.01 ng/ml (0.00-0.034)
[2024-04-26] MEDS: MIDAZOLAM 2MG/2ML VIAL 2 MG IV (03:40)
[2024-04-26 05:44] LABS: Troponin I < 0.01 ng/ml (0.00-0.034)
[2024-04-26 11:02] LABS: Creatine Kinase 196 U/L (55-170)
[2024-04-26 11:03] LABS: Lactic Acid 0.7 mmol/L (0.7-2.1)
--- NOTE | 2024-04-26 11:04 | PC.NURSE ---
report called to receiving RN
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
--- NOTE | 2024-04-28 14:54 | CARE MANAGER ---
Called and spoke with patient's mother, who stated that patient is doing well. She stated that he does not plan to see Dr. Linn and is unsure if he has scheduled a f/u with PCP. She asked about getting K+ ordered due to being low (3.1) in the hospital. I explained that she should encourage patient to discuss this with his PCP at f/u appt. No other concerns voiced at time of call.
== END 2024-04-26 17:55 | disposition home or self-care (01) ==
LOC: ER 06:38 → 2ND 10:47
PROVIDERS: Emergency Medicine; Admitting Provider Internal Medicine Adolescent Medicine; Emergency Provider Emergency Medicine; Visit Provider Internal Medicine Adolescent Medicine
DX: F15.10 Other stimulant abuse, uncomplicated (principal); R41.82 Altered mental status, unspecified; B19.20 Unspecified viral hepatitis C without hepatic coma; R74.01 Elevation of levels of liver transaminase levels; F31.9 Bipolar disorder, unspecified; F20.9 Schizophrenia, unspecified; G47.00 Insomnia, unspecified; F17.210 Nicotine dependence, cigarettes, uncomplicated; F12.10 Cannabis abuse, uncomplicated; F43.10 Post-traumatic stress disorder, unspecified; F10.90 Alcohol use, unspecified, uncomplicated; Y90.0 Blood alcohol level of less than 20 mg/100 ml; R00.0 Tachycardia, unspecified
CPT/HCPCS: 70450; 80053; 80307; 80320; 80329; 81001; 82550; 83605; 84484; 85025; 85610; 93005; 99291; G0378; G0480; J1790; J2250; J7120

== ENCOUNTER 2024-05-11 20:11 | Outpatient (CLI) | payer OTHER, SELFPAY ==
[2024-05-11 20:27] LABS: Adenovirus,PCR Not Detected (NotDetected); Bordetella Pertussis Not Detected (NotDetected); Chlamydophila Pneumoniae, PCR Not Detected (NotDetected); Coronavirus 229E Not Detected (NotDetected); Coronavirus NL63 Not Detected (NotDetected); Coronavirus OC43 Not Detected (NotDetected); Coronovirus HKU1,PCR Not Detected (NotDetected); Human Metapneumovirus Not Detected (NotDetected); Influenza A, PCR Not Detected (NotDetected); Influenza AH1, 2009 Not Detected (NotDetected); Influenza AH1, PCR Not Detected (NotDetected); Influenza AH3,PCR Not Detected (NotDetected); Influenza B, PCR Not Detected (NotDetected); Mycoplasma Pneumoniae, PCR Not Detected (NotDetected); Parainfluenza 1, PCR Not Detected (NotDetected); Parainfluenza 2, PCR Not Detected (NotDetected); Parainfluenza 3, PCR Not Detected (NotDetected); Parainfluenza 4, PCR Not Detected (NotDetected); Respiratory Syncytial Virus Not Detected (NotDetected); Rhinovirus/Enterovirus Not Detected (NotDetected)
[2024-05-12 02:27] LABS: Coronavirus 19, PCR Detected (NotDetected)
== END 2024-05-11 23:59 | disposition home or self-care (01) ==
LOC: LAB.DROPOF 20:12
PROVIDERS: PCP Nurse Practitioner Family; Visit Provider Nurse Practitioner Family
DX: R50.9 Fever, unspecified (principal)
CPT/HCPCS: 87581; 87632; 87635; 87798

== ENCOUNTER 2024-08-09 10:59 | Outpatient (CLI) | payer OTHER, SELFPAY ==
[2024-08-09 18:29] LABS: Basophils # 0.1 K/mm3 (0-0.2); Basophils % 1.3 % (0.1-2.0); Eosinophils # 0.3 K/mm3 (0.0-0.4); Eosinophils % 2.6 % (0.1-12.0); Hematocrit 51.7 % (42.0-52.0); Hemoglobin 17.1 g/dL (14.1-18.0); Lymphocytes # 3.2 K/mm3 (0.7-4.5); Lymphocytes % 31.3 % (10-50); Mean Corpuscular Hemoglobin 30.8 pg (27.0-31.2); Mean Corpuscular Volume 93.3 fl (80-94); Mean Platelet Volume 9.9 fl (7.4-10.4); Monocytes # 0.7 K/mm3 (0.1-1.0); Monocytes % 6.9 % (1.7-9.3); Neutrophils # 5.9 K/mm3 (1.8-7.8); Neutrophils % 57.8 % (37.0-80.0); Platelet Count 216 K/mm3 (142-424); Red Blood Count 5.54 M/mm3 (4.60-6.20); Red Cell Distribution Width 13.9 % (11.5-17.5); White Blood Count 10.3 K/mm3 (4.8-10.8)
[2024-08-09 18:48] LABS: Alanine Aminotransferase 35 U/L (12-78); Albumin Level 4.6 g/dl (3.5-5.0); Albumin/Globulin Ratio 1.6 (1.1-1.8); Alkaline Phosphatase 83 U/L (38-126); Anion Gap 14.4 mEq/L (5-15); Aspartate Amino Transferase 38 U/L (17-59); Bilirubin,Total 0.8 mg/dl (0.2-1.3); Blood Urea Nitrogen 14 mg/dl (9-20); Calcium 9.3 mg/dl (8.4-10.2); Carbon Dioxide 25 mmol/L (22.0-30.0); Chloride 105 mmol/L (98-107); Estimated Glomerular Filt Rate 92 ml/min (>60); GFR (African American) 111 ML/MIN (>60); Globulin 2.9 g/dL (1.3-3.2); Glucose 82 mg/dl (74-100); Potassium 4.4 mmoL/L (3.5-5.1); Sodium 140 mmol/L (136-145); Total Protein,Serum 7.5 g/dl (6.3-8.2)
[2024-08-09 19:06] LABS: 25-OH Vitamin D, Total 13.3 ng/mL (30-100)
[2024-08-09 19:11] LABS: Hemoglobin A1C 5.2 % (4.0-6.0)
[2024-08-09 20:47] LABS: HIV (1&2) Antibody Rapid NONREACTIVE (NONREACTIVE)
[2024-08-13 11:48] LABS: HCV Ab Reactive (Non Reactive)
== END 2024-08-09 23:59 | disposition home or self-care (01) ==
LOC: LAB.DROPOF 08-10 13:06
PROVIDERS: PCP Internal Medicine; Visit Provider Internal Medicine
DX: R74.8 Abnormal levels of other serum enzymes (principal); R53.83 Other fatigue
CPT/HCPCS: 80053; 82306; 83036; 85025; 86803; 87389

== ENCOUNTER 2024-08-22 08:46 | Day surgery (SDC) | payer OTHER, SELFPAY ==
[2024-08-19 13:33] VITALS: BMI 33.5
[2024-08-22] VITALS (10 sets, daily range): BP systolic 106–144; BP diastolic 63–87; PULSE 67–78; RESP 16–18; TEMP 36.3–36.9; O2SAT 92–99
[2024-08-22] MEDS: LACTATED RINGERS 1000ML 1,000 ML 100 ML IV (09:28)
--- NOTE | 2024-08-22 09:50 | EXP.ANES.CKL ---
[facility] Disclaimer: The information contained in this section may have been updated after the patient was seen, as this information can be updated by other users. Medical History Fatigue Suicide and self-inflicted injury Acute hypoxemic respiratory failure Seizure Acute streptococcal pharyngitis Acute internal derangement of knee Opiate overdose Psychiatric diagnosis Insomnia Suicidal behavior Bipolar disorder Manic behavior Personality disorder Schizophrenia PTSD (post-traumatic stress disorder) Anxiety Surgical History No significant past surgical history Family History Other No significant family history Social History (Updated 08/22/24 @ 09:19 by Cary Mancilla RN) Smoking Status: Current every day smoker tobacco type: cigarettes packs per day: 1 alcohol intake: former substance use type: heroin and methamphetamine current occupational status: unemployed Travel in the last 8 weeks: None [facility] Anesthesia Checklist Patient Identification Patient Identification: Verbal (Name & ) Structural Data Admitted From: Home Planned Operative Procedure/s: r carpal tunnel release Consent for Planned Operative Procedure(s) Verified: Yes NPO Status Verified Time NPO: 00:00 Additional verifications Anesthesia Reactions: No Hx Blood Transfusions: No Blood Transfusion Reaction: No Airway Assessment Mallampati Score:: Class II C-Spine Mobility Assessed: Yes TMJ Mobility Assessed: Yes Dentition: Poor Dentition Neurological Assessment Level of Consciousness: Awake, Alert and Appropriate Anesthesia Plan Anesthesia Risk discussed: Yes Anesthesia Plan: Verified ASA Class: III Anesthesia Type: General
[2024-08-22] MEDS: CEFAZOLIN SODIUM 2 GM in 0.9 % SODIUM CHLORIDE 100 ML IV (11:30)
[2024-08-22] MEDS: LIDOCAINE 1% W/EPI 1:100,000 20ML VIAL 20 ML (11:45)
--- NOTE | 2024-08-22 11:48 | EXP.OP.NOTE ---
Date of procedure: 08/22/24 Pre-op Diagnosis:: Right carpal tunnel syndrome Post-op Diagnosis:: Same Procedure performed:: Right endoscopic carpal tunnel release Surgeon:: Ba Pizarro DO MANAGER TELEMETRY:: Gala Alanis Anesthesia: LMA Estimated blood loss (mL): 0 Operative findings:: See dictation Operative note:: Patient is identified preoperatively. Right wrist marked with yes and my initials. Transported operative suite. Placed bilaterally in bed with a hand table. General anesthesia administered airway secured. Right upper extremity prepped and draped normal sterile fashion. Once prepped and draped final operative timeout performed to identify proper patient procedure and extremity. Everyone involved in the case agreed. There is no counter indications to beginning. Did receive preoperative antibiotics. Marking pen was used to keyanna plan incision over the volar wrist crease. Esmarch was used to exsanguinate extremity pneumatic tourniquet inflated to 250 mmHg. Skin knife is used to incise through skin dissection was taken down with the scissors and retractors were placed to identify the most proximal aspect of the transverse carpal ligament. Once identified the small dilator followed by the larger dilator was placed into the carpal tunnel. Transverse carpal ligament clearly seen superiorly and the camera. Probe was used to find the most distal aspect the transverse carpal ligament soft tissue rasp was used to remove the soft tissue from the undersurface. And the curved hook blade was inserted and transverse carpal ligament was released in its entirety. This was directly visualized on the camera. Sled was then removed. Irrigation of the wound performed. Wound closed with interrupted buried 4-0 Monocryl stitches with Mastisol and Steri-Strips sterile hand dressing placed patient waken anesthesia taken recovery stable condition. Condition: stable Disposition: PACU Complications:: None apparent
--- NOTE | 2024-08-22 12:00 | P.PNANES_ITS ---
[facility] Anesthesia Record Part I Anesthesia Record I Intake, IV Amount: 400 Hydration: Adequate Estimated blood loss (mL): 10 Urine output (mL): 0 Blood Products used (#): none Blood Pressure: 115/72 SaO2: 92 Pulse Rate: 68 Airway Patency: Patent Respiratory Rate: 16 Temperature: 97.4 F Patient is:: Drowsy, Oral/Nasal airway (#34Fr. nasal trumpet in place upon arrival to PACU) and Stable Stable to PACU at:: 12:01
--- NOTE | 2024-08-22 13:36 | P.PNANES_ITS ---
[facility] Anesthesia Record Part II Anesthesia Record Part II Discharge Time: 12:26 Destination: Surgical Day Care (OP Surgery) PACU nurse assessment reviewed?: Yes Patient Condition:: Good Anesthesia Complications:: None Swallowing reflex intact?: Yes Airway Patency: Patent Cyanosis?: No Blood Pressure: 143/72 SaO2: 97 Respiratory Rate: 16 Pulse Rate: 73 Temperature: 97.4 F Mental Status: Alert & Oriented Pain level:: 0 Nausea and/or vomitting:: None Intake, IV Amount: 400 Hydration: Adequate
== END 2024-08-22 12:56 | disposition home or self-care (01) ==
PROVIDERS: PCP Internal Medicine; Visit Provider Orthopaedic Surgery
PROC: (CPT 64721; principal; 2024-08-22 10:15)
DX: G56.01 Carpal tunnel syndrome, right upper limb (principal)
CPT/HCPCS: 29848; 96374; J0690; J2250; J3010; J7120

== ENCOUNTER 2025-03-12 11:59 | Observation (INO) | payer OTHER, SELFPAY ==
[2025-03-12] VITALS (8 sets, daily range): BP systolic 122–152; BP diastolic 54–91; PULSE 95–118; RESP 16–97; TEMP 36.6–36.9; O2SAT 95–98; BMI 31.1; BMI 29.4
--- NOTE | 2025-03-12 12:07 | ECG_ITS ---
APPROVED REPORT Exam: Resting ECG HR:115 bpm ECG Measurements Heart Rate 115 AXES CA 137 P 15 QRSd 96 QRS 44 QT 325 T 52 QTc 393 Conclusion SINUS TACHYCARDIA ABNORMAL RHYTHM ECG UNCONFIRMED REPORT Electronically signed by : LUKE ELENA, 03/14/2025 06:35:35
--- NOTE | 2025-03-12 12:08 | ED_ITS ---
Discharge Plan Disposition Patient Disposition: Admitted Clinical Impressions Clinical Impression: DEEJAY (acute kidney injury) Rhabdomyolysis Qualifiers: Rhabdomyolysis type: non-traumatic Qualified Code(s): M62.82 - Rhabdomyolysis Discharge ED Provider: Denisha Fernandez General Adult HPI <Eufemia Goff APRN - Last Filed: 03/12/25 15:23> General Chief complaint: Syncope Stated complaint: passed out, cramping Time Seen by Provider: 03/12/25 12:03 History of Present Illness HPI narrative: patient is a 44 year old male PMHx history of IV drug use, history of rhabdomyolysis, history of overdose who presents to the ED after syncopal episode. Patient states he was working in the heat for 2 days when he was in a hot garage today, passed out, states since he woke up he has generalized cramping. Related Data Home Medications ?Medication ?Instructions ?Recorded ?Confirmed No Known Home Medications 03/12/2502/20 Allergies Allergy/AdvReac Type Severity Reaction Status Date / Time No Known Allergies Allergy Verified 08/22/24 09:13 PFSH <Eufemia Goff APRN - Last Filed: 03/12/25 15:23> [facility] Disclaimer: The information contained in this section may have been updated after the patient was seen, as this information can be updated by other users. Medical History (Updated 03/12/25 @ 14:13 by Jenny Gonzalez RN) Methamphetamine abuse Fatigue Psychiatric diagnosis Insomnia Suicide and self-inflicted injury Suicidal behavior Bipolar disorder Manic behavior Personality disorder Schizophrenia PTSD (post-traumatic stress disorder) Anxiety Acute hypoxemic respiratory failure Seizure Acute streptococcal pharyngitis Acute internal derangement of knee Opiate overdose Surgical History No significant past surgical history Family History Other No significant family history Social History (Updated 03/12/25 @ 14:14 by Jenny Gonzalez RN) Smoking Status: Current every day smoker tobacco type: cigarettes packs per day: 1 alcohol intake: former substance use type: heroin and methamphetamine current occupational status: unemployed Travel in the last 8 weeks?: None Have you lived/traveled outside [place] in past 30 days?: No Contact w/someone who lives/traveled outside US past 30 days?: No Exposure to someone with infectious disease in past 14 days?: No Do you have a fever (greater than 100.4 F or 38 C)?: No Have you tested positive for COVID-19?: No Exposed to someone with COVID-19 in past 14 days?: No Do you have a sore throat?: No Do you have a cough?: No Do you have any weakness?: No Do you have any diarrhea?: No Are you experiencing any unusual bleeding?: No Do you have any muscle aches/pain?: No Do you have any abdominal pain?: No Are you experiencing loss of taste or smell?: No Other Medical History Have you received the Flu Vaccine for this season: No Have you received the Pneumonia Vaccine: No <Eufemia Goff APRN - Last Filed: 03/12/25 15:23> ROS Obtained: Yes Systems reviewed as appropriate & no additional complaints except as documented Physical Exam <Eufemia Goff APRN - Last Filed: 03/12/25 15:23> General General appearance: alert and in no apparent distress Head Head exam: atraumatic and normocephalic Eye Eye exam: Present normal appearance and PERRL ENT ENT exam: Present normal exam Neck Neck exam: Present normal inspection Chest Chest inspection: Present normal inspection and symmetric chest wall rise; Absent tenderness Respiratory Respiratory exam: Present normal lung sounds bilaterally Cardiovascular Cardiovascular exam: Present tachycardia Abdominal Exam Abdominal exam: Present soft and normal bowel sounds; Absent tenderness Extremities Exam Extremities exam: Present normal inspection and full ROM Back Exam Back exam: Present normal inspection and full ROM Neurological Exam Neurological exam: Present alert and oriented X3 Psychiatric Psychiatric exam: Present normal affect and normal mood Skin Skin exam: Present warm and dry Medical Decision Making <Eufemia Goff APRN - Last Filed: 03/12/25 15:23> Medical Records Screening: Per USPSTF and CDC recommendations, given the prevalence of disease in our region, it is our hospital?s policy to screen for HIV and viral Hepatitis for all patients aged 18 and over and those with ongoing risk factors. Martín Inquiry Pt receiving controlled substance: No Vital Signs: 03/12/25 12:14 03/12/25 12:31 03/12/25 13:00 Temperature 97.9 F Temperature Source Oral Pulse Rate 105 H 104 H Pulse Rate [Right] 118 H Respiratory Rate 18 25 H 20 Blood Pressure 125/80 122/79 Blood Pressure [Right Arm] 151/86 H Blood Pressure Mean 95 88 Blood Pressure Mean [Right Arm] 107 Blood Pressure Source [Right Arm] Automatic Cuff Blood Pressure Position [Right Arm] Sitting 02 Sat by Pulse Oximetry 98 97 95 Oxygen Delivery Method Room Air 03/12/25 13:30 Temperature Temperature Source Pulse Rate 95 H Pulse Rate [Right] Respiratory Rate 24 Blood Pressure 128/86 Blood Pressure [Right Arm] Blood Pressure Mean 96 Blood Pressure Mean [Right Arm] Blood Pressure Source [Right Arm] Blood Pressure Position [Right Arm] 02 Sat by Pulse Oximetry 95 Oxygen Delivery Method Lab Data Lab Results 03/12/25 12:12: WBC 20.6 H*, RBC 5.84, Hgb 18.3 H, Hct 52.8 H, MCV 90.4, MCH 31.3 H, MCHC 34.7, RDW 13.1, Plt Count 283, MPV 11.2 H, Neut % (Auto) 74.7, Lymph % (Auto) 15.6, [place] % (Auto) 7.8, Eos % (Auto) 0.3, Baso % (Auto) 0.7, N eut # (Auto) 15.4 H, Lymph # (Auto) 3.2, [place] # (Auto) 1.6 H, Eos # (Auto) 0.1, Baso # (Auto) 0.1, Total Counted 100, Neutrophils % (Manual) 79 H, Lymphocytes % (Manual) 17, Monocytes % (Manual) 4, Platelet Estimate Normal, RBC Morphology Normal, Sodium 139, Potassium 4.0, Chloride 93 L, Carbon Dioxide 22, Anion Gap 28.0 H, BUN 25 H, Creatinine 2.60 H, Estimated Creat Clear 54, Estimated GFR 27 L, Est GFR ( Amer) 33 L, Glucose 115 H, Calcium 10.3 H, Total Bilirubin 1.1, AST 91 H, ALT 45, Alkaline Phosphatase 84, Total Creatine Kinase 3112 H*, Troponin I 0.02, Total Protein 10.6 H D, Albumin 5.6 H, Globulin 5.0 H, Albumin/Globulin Ratio 1.1 03/12/25 13:04: SARS-CoV-2 (PCR) Not detected, Influenza A Untype (PCR) Not detected, Influenza Type B (PCR) Not detected 03/12/25 13:15: Urine Color Yellow, Urine Appearance Clear, Urine pH 5.5, Ur Specific [place] >= 1.030, Urine Protein 1+ A, Urine Glucose (UA) Negative, Urine Ketones Trace, Urine Blood 1+ A, Urine Nitrate Negative, Urine Bilirubin Negative, Urine Urobilinogen 0.2, Ur Leukocyte Esterase Negative, Urine RBC Occasional, Urine WBC 3-5, Ur Squamous Epith Cells 5-10, Amorphous Sediment Trace, Urine Bacteria Trace, Hyaline Casts 5-10, Urine Opiates Screen Negative, Urine Methadone Screen Negative, Ur Barbituates Screen Negative, Ur Phencyclidine Scrn Negative, Ur Amphetamines Screen Positive H, U Benzodiazepines Scrn Negative, Urine Cocaine Screen Negative, U Marijuana (THC) Screen Positive H 03/12/25 12:12 03/12/25 12:12 Orders (Tests/Meds): ED MEDICATIONS Generic Name Dose Route Start Last Admin Trade Name Freq PRN Reason Stop Dose Admin Acetaminophen 650 mg 03/12/25 15:20 Acetaminophen 325mg Tab PO 04/11/25 15:19 Q4HP PRN Fever or Mild Pain (1-3) Enoxaparin Sodium 40 mg 03/13/25 09:00 Enoxaparin 40mg/0.4ml Syringe SUBCUT 04/12/25 08:59 DAILY MICHAEL Lactated Ringer's 1,000 mls @ 150 mls/hr 03/12/25 15:30 03/12/25 15:38 Lactated Ringer's 1000 Ml Bag IV 04/11/25 15:29 150 mls/hr .Q6H40M MICHAEL Administration Ondansetron HCl 4 mg 03/12/25 15:20 Ondansetron 4mg/2ml Vial IV 04/11/25 15:19 Q6HP PRN Nausea Oxycodone HCl 5 mg 03/12/25 15:29 03/12/25 15:42 Oxycodone 5mg Immediate Release Tablet PO 04/11/25 15:28 5 mg Q4HP PRN Administration Moderate to Severe Pain (4-10) Sodium Chloride 10 ml 03/12/25 15:20 Sodium Chloride 0.9% 10ml Flush Syringe IV 04/11/25 15:19 NEEDED PRN Maintain IV Site Discontinued Medications Generic Name Dose Route Start Last Admin Trade Name Freq PRN Reason Stop Dose Admin Acetaminophen 1,000 mg 03/12/25 12:23 03/12/25 12:30 Acetaminophen 1,000mg/100ml Vial IV 03/12/25 12:24 1,000 mg ONCE ONE Administration Lactated Ringer's 2,000 mls @ 999 mls/hr 03/12/25 12:26 03/12/25 12:28 Lactated Ringer's 1000 Ml Bag IV 03/12/25 14:26 999 mls/hr .Q2H1M ONE Administration ORDERS Category Date Time Status CXR --portable [XR chest portable] Stat Exams 03/12/25 12:10 Completed CBC w/Auto Diff [Complete Blood Count Auto Diff] Stat Lab 03/12/25 12:12 Completed CK [Creatine Kinase] Stat Lab 03/12/25 12:12 Completed CMP [Comprehensive Metabolic Panel] Stat Lab 03/12/25 12:12 Completed Rapid PCR Covid and Flu A/B Stat Lab 03/12/25 13:04 Completed Trop I [Troponin I] Stat Lab 03/12/25 12:12 Completed Troponin I Q3H Lab 03/12/25 15:00 Completed Troponin I Q3H Lab 03/12/25 18:15 Ordered UDS [Drug Screen,Urine] Stat Lab 03/12/25 13:15 Completed Urinalysis and Microscopic Stat Lab 03/12/25 13:15 Completed Medical Decision Narrative: In summary, patient is a 44 year old male PMHx history of IV drug use, history of rhabdomyolysis, history of overdose who presents to the ED after syncopal episode. Patient states he was working in the heat for 2 days when he was in a hot garage today, passed out, states since he woke up he has generalized cramping. He reports that he had 1 episode of left-sided chest pain after waking up however that has resolved upon arrival to the ED. Patient states he has not been well-hydrated recently. He is concerned that he was too hot while performing physical labor. He denies any drug use within the past week or so. Denies any alcohol use. Upon arrival, he is tachycardic and hypertensive. His physical exam is unremarkable. Denies fever, chills, headache, visual disturbances, posterior neck pain, current chest pain, shortness of breath, abd pain, nausea, vomiting, dysuria. Differential diagnosis include rhabdomyolysis, ACS, electrolyte abnormality, dehydration, heatstroke, among others. CBC remarkable for WBC 20.6, stable H&H. CMP remarkable for anion gap 28, BUN 25, creatinine 2.60, GFR 27, total protein 10.6, albumin 5.6. CK 3112. Discussed with patient diagnosis of rhabdo and DEEJAY. Discussed that he is severely dehydrated. Will continue IV fluids and admission. At first, patient stated he would not be admitted and stated I cannot do drugs in the hospital , I had an in-depth conversation with patient and his family member about the risk of if he leaves the ED. He verbalized understanding. Patient then changed his mind and agreed to admission. He was accepted to the hospital under the care of hospital medicine. <Denisha Fernandez MD - Last Filed: 03/12/25 16:01> Vital Signs: 03/12/25 12:14 03/12/25 12:31 03/12/25 13:00 Temperature 97.9 F Temperature Source Oral Pulse Rate 105 H 104 H Pulse Rate [Right] 118 H Respiratory Rate 18 25 H 20 Blood Pressure 125/80 122/79 Blood Pressure [Right Arm] 151/86 H Blood Pressure Mean 95 88 Blood Pressure Mean [Right Arm] 107 Blood Pressure Source [Right Arm] Automatic Cuff Blood Pressure Position [Right Arm] Sitting 02 Sat by Pulse Oximetry 98 97 95 Oxygen Delivery Method Room Air 03/12/25 13:30 Temperature Temperature Source Pulse Rate 95 H Pulse Rate [Right] Respiratory Rate 24 Blood Pressure 128/86 Blood Pressure [Right Arm] Blood Pressure Mean 96 Blood Pressure Mean [Right Arm] Blood Pressure Source [Right Arm] Blood Pressure Position [Right Arm] 02 Sat by Pulse Oximetry 95 Oxygen Delivery Method Lab Data Lab Results 03/12/25 12:12: WBC 20.6 H*, RBC 5.84, Hgb 18.3 H, Hct 52.8 H, MCV 90.4, MCH 31.3 H, MCHC 34.7, RDW 13.1, Plt Count 283, MPV 11.2 H, Neut % (Auto) 74.7, Lymph % (Auto) 15.6, [place] % (Auto) 7.8, Eos % (Auto) 0.3, Baso % (Auto) 0.7, N eut # (Auto) 15.4 H, Lymph # (Auto) 3.2, [place] # (Auto) 1.6 H, Eos # (Auto) 0.1, Baso # (Auto) 0.1, Total Counted 100, Neutrophils % (Manual) 79 H, Lymphocytes % (Manual) 17, Monocytes % (Manual) 4, Platelet Estimate Normal, RBC Morphology Normal, Sodium 139, Potassium 4.0, Chloride 93 L, Carbon Dioxide 22, Anion Gap 28.0 H, BUN 25 H, Creatinine 2.60 H, Estimated Creat Clear 54, Estimated GFR 27 L, Est GFR ( Amer) 33 L, Glucose 115 H, Calcium 10.3 H, Total Bilirubin 1.1, AST 91 H, ALT 45, Alkaline Phosphatase 84, Total Creatine Kinase 3112 H*, Troponin I 0.02, Total Protein 10.6 H D, Albumin 5.6 H, Globulin 5.0 H, Albumin/Globulin Ratio 1.1 03/12/25 13:04: SARS-CoV-2 (PCR) Not detected, Influenza A Untype (PCR) Not detected, Influenza Type B (PCR) Not detected 03/12/25 13:15: Urine Color Yellow, Urine Appearance Clear, Urine pH 5.5, Ur Specific [place] >= 1.030, Urine Protein 1+ A, Urine Glucose (UA) Negative, Urine Ketones Trace, Urine Blood 1+ A, Urine Nitrate Negative, Urine Bilirubin Negative, Urine Urobilinogen 0.2, Ur Leukocyte Esterase Negative, Urine RBC Occasional, Urine WBC 3-5, Ur Squamous Epith Cells 5-10, Amorphous Sediment Trace, Urine Bacteria Trace, Hyaline Casts 5-10, Urine Opiates Screen Negative, Urine Methadone Screen Negative, Ur Barbituates Screen Negative, Ur Phencyclidine Scrn Negative, Ur Amphetamines Screen Positive H, U Benzodiazepines Scrn Negative, Urine Cocaine Screen Negative, U Marijuana (THC) Screen Positive H Orders (Tests/Meds): ED MEDICATIONS Generic Name Dose Route Start Last Admin Trade Name Freq PRN Reason Stop Dose Admin Acetaminophen 650 mg 03/12/25 15:20 Acetaminophen 325mg Tab PO 04/11/25 15:19 Q4HP PRN Fever or Mild Pain (1-3) Enoxaparin Sodium 40 mg 03/13/25 09:00 Enoxaparin 40mg/0.4ml Syringe SUBCUT 04/12/25 08:59 DAILY MICHAEL Lactated Ringer's 1,000 mls @ 150 mls/hr 03/12/25 15:30 03/12/25 15:38 Lactated Ringer's 1000 Ml Bag IV 04/11/25 15:29 150 mls/hr .Q6H40M MICHAEL Administration Ondansetron HCl 4 mg 03/12/25 15:20 Ondansetron 4mg/2ml Vial IV 04/11/25 15:19 Q6HP PRN Nausea Oxycodone HCl 5 mg 03/12/25 15:29 03/12/25 15:42 Oxycodone 5mg Immediate Release Tablet PO 04/11/25 15:28 5 mg Q4HP PRN Administration Moderate to Severe Pain (4-10) Sodium Chloride 10 ml 03/12/25 15:20 Sodium Chloride 0.9% 10ml Flush Syringe IV 04/11/25 15:19 NEEDED PRN Maintain IV Site Discontinued Medications Generic Name Dose Route Start Last Admin Trade Name Freq PRN Reason Stop Dose Admin Acetaminophen 1,000 mg 03/12/25 12:23 03/12/25 12:30 Acetaminophen 1,000mg/100ml Vial IV 03/12/25 12:24 1,000 mg ONCE ONE Administration Lactated Ringer's 2,000 mls @ 999 mls/hr 03/12/25 12:26 03/12/25 12:28 Lactated Ringer's 1000 Ml Bag IV 03/12/25 14:26 999 mls/hr .Q2H1M ONE Administration ORDERS Category Date Time Status CXR --portable [XR chest portable] Stat Exams 03/12/25 12:10 Completed CBC w/Auto Diff [Complete Blood Count Auto Diff] Stat Lab 03/12/25 12:12 Completed CK [Creatine Kinase] Stat Lab 03/12/25 12:12 Completed CMP [Comprehensive Metabolic Panel] Stat Lab 03/12/25 12:12 Completed Rapid PCR Covid and Flu A/B Stat Lab 03/12/25 13:04 Completed Trop I [Troponin I] Stat Lab 03/12/25 12:12 Completed Troponin I Q3H Lab 03/12/25 15:00 Completed Troponin I Q3H Lab 03/12/25 18:15 Ordered UDS [Drug Screen,Urine] Stat Lab 03/12/25 13:15 Completed Urinalysis and Microscopic Stat Lab 03/12/25 13:15 Completed Medical Decision Narrative: In summary, patient is a 44 year old male PMHx history of IV drug use, history of rhabdomyolysis, history of overdose who presents to the ED after syncopal episode. Patient states he was working in the heat for 2 days when he was in a hot garage today, passed out, states since he woke up he has generalized cramping. He reports that he had 1 episode of left-sided chest pain after waking up however that has resolved upon arrival to the ED. Patient states he has not been well-hydrated recently. He is concerned that he was too hot while performing physical labor. He denies any drug use within the past week or so. Denies any alcohol use. Upon arrival, he is tachycardic and hypertensive. His physical exam is unremarkable. Denies fever, chills, headache, visual disturbances, posterior neck pain, current chest pain, shortness of breath, abd pain, nausea, vomiting, dysuria. Differential diagnosis include rhabdomyolysis, ACS, electrolyte abnormality, dehydration, heatstroke, among others. CBC remarkable for WBC 20.6, stable H&H. CMP remarkable for anion gap 28, BUN 25, creatinine 2.60, GFR 27, total protein 10.6, albumin 5.6. CK 3112. Discussed with patient diagnosis of rhabdo and DEEJAY. Discussed that he is severely dehydrated. Will continue IV fluids and admission. At first, patient stated he would not be admitted and stated I cannot do drugs in the hospital , I had an in-depth conversation with patient and his family member about the risk of if he leaves the ED. He verbalized understanding. Patient then changed his mind and agreed to admission. He was accepted to the hospital under the care of hospital medicine. I was consulted by the PAMELA, and we discussed the complexity of problems being addressed. I approved the treatment and management plan for this patient's care in the emergency department, thus performing a substantial portion of the medical decision making. Denisha Fernandez MD Critical Care <Eufemia Goff, SINTER FEEDER - Last Filed: 03/12/25 15:23> Critical Care Time Critical Care Time: No
--- NOTE | 2025-03-12 12:10 | XR_ITS ---
PROCEDURE INFORMATION: Exam: XR Chest Exam date and time: 03/12/2025 12:25 PM Age: 44 years old Clinical indication: Other: Chest pain; Additional info: Cp TECHNIQUE: Imaging protocol: Radiologic exam of the chest. Views: 1 view. COMPARISON: CR XR CHEST 2V 09/25/2023 7:00 PM FINDINGS: Lungs: Unremarkable. No consolidation. Pleural spaces: Unremarkable. No pleural effusion. No pneumothorax. Heart/Mediastinum: Unremarkable. No cardiomegaly. Bones/joints: Unremarkable. IMPRESSION: No acute findings.
[2025-03-12] MEDS: LACTATED RINGERS 1000ML 2,000 ML 999 ML IV (12:28)
--- NOTE | 2025-03-12 12:28 | PC.NURSE ---
Patients FSBS is 132.
--- NOTE | 2025-03-12 12:28 | PC.NURSE ---
1215 wet rag applied to patient's head.
[2025-03-12] MEDS: ACETAMINOPHEN 1,000MG/100ML VIAL 1000 MG IV (12:30)
[2025-03-12 12:35] LABS: Albumin Level 5.6 g/dl (3.5-5.0); Chloride 93 mmol/L (98-107); Sodium 139 mmol/L (136-145)
[2025-03-12 12:38] LABS: Alanine Aminotransferase 45 U/L (12-78); Albumin/Globulin Ratio 1.1 (1.1-1.8); Alkaline Phosphatase 84 U/L (38-126); Aspartate Amino Transferase 91 U/L (17-59); Basophils # 0.1 K/mm3 (0-0.2); Basophils % 0.7 % (0.1-2.0); Bilirubin,Total 1.1 mg/dl (0.2-1.3); Blood Urea Nitrogen 25 mg/dl (9-20); Carbon Dioxide 22 mmol/L (22.0-30.0); Creatinine Clearance Estimated 54 mL/min (50-200); Eosinophils # 0.1 Kmm3 (0.0-0.4); Eosinophils % 0.3 % (0.1-12.0); Estimated Glomerular Filt Rate 27 ml/min (>60); GFR (African American) 33 ML/MIN (>60); Hematocrit 52.8 % (42.0-52.0); Immature Granulocytes # 0.18 10^3uL; Immature Granulocytes % 0.9 %; Lymphocytes # 3.2 K/mm3 (0.7-4.5); Lymphocytes % 15.6 % (10-50); Mean Corpuscular HGB Conc 34.7 g/dL (31.8-35.4); Mean Corpuscular Hemoglobin 31.3 pg (27.0-31.2); Mean Corpuscular Volume 90.4 fl (80-94); Mean Platelet Volume 11.2 fl (7.4-10.4); Monocytes # 1.6 K/mm3 (0.1-1.0); Monocytes % 7.8 % (1.7-9.3); Neutrophils # 15.4 K/mm3 (1.8-7.8); Neutrophils % 74.7 % (37.0-80.0); Nucleated Red Blood Cells # 0 10^3/uL; Nucleated Red Blood Cells % 0 %; Platelet Count 283 K/mm3 (142-424); Red Blood Count 5.84 M/mm3 (4.60-6.20); Red Cell Distribution Width 13.1 % (11.5-17.5); Red Cell Distribution Width-SD 42.9 fL; Total Protein,Serum 10.6 g/dl (6.3-8.2); White Blood Count 20.6 K/mm3 (4.8-10.8)
[2025-03-12 12:39] LABS: Calcium 10.3 mg/dl (8.4-10.2); Glucose 115 mg/dl (74-100)
[2025-03-12 12:50] LABS: Troponin I 0.02 ng/ml (0.00-0.034)
[2025-03-12 12:55] LABS: MANUAL DIFFERENTIAL MANUAL DIFFERENTIAL (MANUAL DIFF)
[2025-03-12 13:07] LABS: Coronavirus 19, PCR Not Detected (NotDetected); Influenza A, PCR Not Detected (NotDetected); Influenza B, PCR Not Detected (NotDetected)
--- NOTE | 2025-03-12 13:14 | PC.NURSE ---
Pt still unable to provide urine sample at this time.
--- NOTE | 2025-03-12 13:18 | PC.NURSE ---
Pt states that his cramps have improved a ton , and states his headache is not as bad.
[2025-03-12 13:21] LABS: Creatine Kinase 3112 U/L (55-170)
[2025-03-12 13:25] LABS: Microscopic, Urine URINE MICROSCOPIC (MICROSCOPIC)
[2025-03-12 13:28] LABS: Appearance,Urine CLEAR (Clear); Blood, Urine 1+ (Negative); Color,Urine YELLOW (Yellow); Glucose,Urine (UA) Negative (Negative); Ketones,Urine TRACE (Negative); Leukocyte Esterase,Urine Negative (Negative); Nitrate,Urine Negative (Negative); PH,Urine 5.5 (5.0-8.5); Protein,Urine 1+ (Negative); Specific Gravity, Urine >= 1.030 (1.005-1.030); Urobilinogen,Urine 0.2 EU/dl (0.2)
[2025-03-12 13:33] LABS: Bilirubin,Urine Negative (Negative)
--- NOTE | 2025-03-12 13:37 | PC.NURSE ---
spoke with [facility] for bed admission
[2025-03-12 13:41] LABS: Barbiturates Screen,Urine Negative ng/ml (<200); Benzodiazepines Screen,Urine Negative ng/ml (<200)
[2025-03-12 13:42] LABS: Cannabinoid Screen,Urine Positive ng/ml (<50)
[2025-03-12 13:43] LABS: Cocaine Screen,Urine Negative ng/ml (<300); Methadone Screen,Urine Negative ng/ml (<300)
[2025-03-12 13:44] LABS: Opiate Screen,Urine Negative ng/ml (<300)
[2025-03-12 13:45] LABS: Phencyclidine Screen,Urine Negative ng/ml (<25)
--- NOTE | 2025-03-12 13:53 | PC.NURSE ---
Report called to [facility] transporting patient to assigned room.
--- NOTE | 2025-03-12 13:58 | PC.NURSE ---
arrived by stretcher from ED
[2025-03-12 14:10] LABS: Amorphous Sediment,Urine Trace /lpf; Bacteria,Urine Trace /lpf; RBC,Urine Occasional #/hpf (0-3)
[2025-03-12 14:52] LABS: Lymphocytes % 17 % (10-50); Monocytes % 4 % (2-9); Neutrophils % 79 % (42-76); Platelet Estimate Normal; RBC Morphology Normal; Total Cells Counted 100
[2025-03-12 15:04] LABS: Hemoglobin 18.3 g/dL (14.1-18.0)
--- NOTE | 2025-03-12 15:20 | EXP.HP ---
History of Present Illness *Admission Date: 03/12/25 *Reason for visit:: Muscle cramps *History of present illness: Bart Norris is a 44-year-old male with a medical history significant for current methamphetamine use, former opioid use disorder, drug overdose who presents with 2-day onset of fatigue and muscle cramps. 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 He states he has been sweating profusely from the heat, and has been having muscle cramps over the past 2 days. Today, he was feeling exhausted and states he passed out which prompted him to call EMS. Workup in the ED significant for creatinine 2.6 (baseline around 1.0), WBC 20.6, CK 3112. UDS positive for methamphetamines, THC. He was given 2 L LR bolus. Patient wanted to leave AMA but was encouraged by ED provider to stay to which she was amenable. Case discussed with ED provider and history was made to admit patient for rhabdomyolysis, DEEJAY, heat exhaustion. [facility] Disclaimer: The information contained in this section may have been updated after the patient was seen, as this information can be updated by other users. Medical History (Updated 03/12/25 @ 14:13 by Jenny Gonzalez RN) Methamphetamine abuse Fatigue Psychiatric diagnosis Insomnia Suicide and self-inflicted injury Suicidal behavior Bipolar disorder Manic behavior Personality disorder Schizophrenia PTSD (post-traumatic stress disorder) Anxiety Acute hypoxemic respiratory failure Seizure Acute streptococcal pharyngitis Acute internal derangement of knee Opiate overdose Surgical History No significant past surgical history Family History Other No significant family history Social History (Updated 03/12/25 @ 14:14 by Jenny Gonzalez RN) Smoking Status: Current every day smoker tobacco type: cigarettes packs per day: 1 alcohol intake: former substance use type: heroin and methamphetamine current occupational status: unemployed Travel in the last 8 weeks?: None Have you lived/traveled outside [place] in past 30 days?: No Contact w/someone who lives/traveled outside US past 30 days?: No Exposure to someone with infectious disease in past 14 days?: No Do you have a fever (greater than 100.4 F or 38 C)?: No Have you tested positive for COVID-19?: No Exposed to someone with COVID-19 in past 14 days?: No Do you have a sore throat?: No Do you have a cough?: No Do you have any weakness?: No Do you have any diarrhea?: No Are you experiencing any unusual bleeding?: No Do you have any muscle aches/pain?: No Do you have any abdominal pain?: No Are you experiencing loss of taste or smell?: No Other Medical History Have you received the Flu Vaccine for this season: No Have you received the Pneumonia Vaccine: No Meds Home Medications and Allergies Home Medications ?Medication ?Instructions ?Recorded ?Confirmed ?Type No Known Home Medications 03/12/25 03/12/25 History New Prescriptions to Start Prescriptions: Allergies Allergy/AdvReac Type Severity Reaction Status Date / Time No Known Allergies Allergy Verified 08/22/24 09:13 Exam Data for Last 24 hours Vital signs and Labs for Last 24 Hours: Temp Pulse Resp BP Pulse Ox O2 Del Method 98 F 97 H 97 H 152/91 H 97 Room Air 03/12/25 14:11 03/12/25 14:11 03/12/25 14:11 03/12/25 14:11 03/12/25 14:11 03/12/25 14:11 Laboratory Results - last 24 hr 03/12/25 12:12: WBC 20.6 H*, RBC 5.84, Hgb 18.3 H, Hct 52.8 H, MCV 90.4, MCH 31.3 H, MCHC 34.7, RDW 13.1, Plt Count 283, MPV 11.2 H, Neut % (Auto) 74.7, Lymph % (Auto) 15.6, [place] % (Auto) 7.8, Eos % (Auto) 0.3, Baso % (Auto) 0.7, Neut # (Auto) 15.4 H, Lymph # (Auto) 3.2, [place] # (Auto) 1.6 H, Eos # (Auto) 0.1, Baso # (Auto) 0.1, Total Counted 100, Neutrophils % (Manual) 79 H, Lymphocytes % (Manual) 17, Monocytes % (Manual) 4, Platelet Estimate Normal, RBC Morphology Normal, Sodium 139, Potassium 4.0, Chloride 93 L, Carbon Dioxide 22, Anion Gap 28.0 H, BUN 25 H, Creatinine 2.60 H, Estimated Creat Clear 54, Estimated GFR 27 L, Est GFR ( Amer) 33 L, Glucose 115 H, Calcium 10.3 H, Total Bilirubin 1.1, AST 91 H, ALT 45, Alkaline Phosphatase 84, Total Creatine Kinase 3112 H*, Troponin I 0.02, Total Protein 10.6 H D, Albumin 5.6 H, Globulin 5.0 H, Albumin/Globulin Ratio 1.1 03/12/25 13:04: SARS-CoV-2 (PCR) Not detected, Influenza A Untype (PCR) Not detected, Influenza Type B (PCR) Not detected 03/12/25 13:15: Urine Color Yellow, Urine Appearance Clear, Urine pH 5.5, Ur Specific [place] >= 1.030, Urine Protein 1+ A, Urine Glucose (UA) Negative, Urine Ketones Trace, Urine Blood 1+ A, Urine Nitrate Negative, Urine Bilirubin Negative, Urine Urobilinogen 0.2, Ur Leukocyte Esterase Negative, Urine RBC Occasional, Urine WBC 3-5, Ur Squamous Epith Cells 5-10, Amorphous Sediment Trace, Urine Bacteria Trace, Hyaline Casts 5-10, Urine Opiates Screen Negative, Urine Methadone Screen Negative, Ur Barbituates Screen Negative, Ur Phencyclidine Scrn Negative, U Benzodiazepines Scrn Negative, Urine Cocaine Screen Negative, U Marijuana (THC) Screen Positive H I & O for Last 24 hours: Intake & Output 03/09/25 03/10/25 03/11/25 03/12/25 23:59 23:59 23:59 23:59 Weight 98.628 kg Constitutional Constitutional: no acute distress *Routine HEENT Exam Head: Present normocephalic Eye: Present EOMI and PERRL ENT: Present mucous membranes moist *Routine Neck Exam Neck: Present supple; Absent lymphadenopathy *Routine Respiratory Exam Respiratory: Present CTA bilaterally *Routine Cardiovascular Exam Cardiovascular: Present RRR *Routine Abdominal Exam Abdominal: Present soft and normoactive bowel sounds; Absent tenderness *Routine Rectal Exam Rectal:: deferred *Routine Genitalia Exam Genitalia:: deferred *Routine Extremities Exam Extremities: Absent cyanosis, clubbing or edema *Routine Skin Exam Skin: Present warm; Absent rash *Routine Neurological Exam Neurological: Present alert and oriented X3 Assessment and Plan *Assessment and plan (1) DEEJAY (acute kidney injury): Status: Acute Category: Medical Code(s): N17.9 - Acute kidney failure, unspecified (2) Rhabdomyolysis: Status: Acute Qualifiers: Rhabdomyolysis type: non-traumatic Qualified Code(s): M62.82 - Rhabdomyolysis Category: Medical Code(s): M62.82 - Rhabdomyolysis (3) Methamphetamine use disorder, severe, dependence: Status: Acute Category: Medical Code(s): F15.20 - Other stimulant dependence, uncomplicated Plan Bart Norris is a 44-year-old male with a medical history significant for current methamphetamine use, former opioid use disorder, drug overdose who presents with 2-day onset of fatigue and muscle cramps. Patient states he has been working out in the hot sun over the past few days, both in the [employer] yesterday and working on his car today. He states he has been sweating profusely from the heat, and has been having muscle cramps over the past 2 days. Today, he was feeling exhausted and states he passed out which prompted him to call EMS. Workup in the ED significant for creatinine 2.6 (baseline around 1.0), WBC 20.6, CK 3112. UDS positive for methamphetamines, THC. He was given 2 L LR bolus. Patient wanted to leave AMA but was encouraged by ED provider to stay to which she was amenable. Case discussed with ED provider and history was made to admit patient for rhabdomyolysis, DEEJAY, heat exhaustion. #Rhabdomyolysis #DEEJAY #Leukocytosis ? Presented with heat exhaustion, dehydration, muscle cramps. Initial CK 3112, WBC 20.6. ? Continue LR at 150 mL/h. Follow-up morning CK. ? Leukocytosis likely in the setting of stress response. No signs of infection. #Chest pain ? Patient states he has been having on and off left-sided chest pain since overdosing on meth a few years ago. Sometimes worse with exertion. Current smoker. ? Follow-up ECHO, lipid panel, A1c, TSH. ? Cardiology consulted, pending further recommendations. ? Aspirin, statin pending above. #Substance use disorder ? Currently uses meth, former opioid user. ? Peer support consulted, pending further recommendations. Full code DVT prophylaxis: Lovenox 30 mg
[2025-03-12 15:32] LABS: Amphetamine/Metha Screen,Urine Positive ng/ml (<1000)
[2025-03-12 15:38] LABS: Troponin I < 0.01 ng/ml (0.00-0.034)
[2025-03-12] MEDS: LACTATED RINGERS 1000ML 1,000 ML 150 ML IV ×2 (15:38→21:35)
[2025-03-12] MEDS: OXYCODONE 5MG IMMEDIATE RELEASE TABLET 5 MG PO ×2 (15:42→19:24)
--- NOTE | 2025-03-12 17:34 | PC.NURSE ---
notified this RN that pt had a vape in the bed upon his assessment. 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 Nicotine patch ordered
[2025-03-12] MEDS: NICOTINE 21MG/24HR PATCH 21 MG TD (17:37)
[2025-03-12 18:28] LABS: Troponin I < 0.01 ng/ml (0.00-0.034)
[2025-03-12] MEDS: TRAZODONE 50MG TABLET 50 MG PO (21:34)
[2025-03-13] MEDS: OXYCODONE 5MG IMMEDIATE RELEASE TABLET 5 MG PO ×3 (01:01→09:46)
[2025-03-13 04:00] VITALS: BP 131/59; PULSE 86; RESP 16; TEMP 36.7; O2SAT 96; BMI 30.3
[2025-03-13] MEDS: LACTATED RINGERS 1000ML 1,000 ML 150 ML IV (05:47)
--- NOTE | 2025-03-13 05:49 | PC.NURSE ---
Pt AOx4. Pt is on RA. Pt's main complaint has been pain, pt medicated per NOV. Pt has been receiving LR at 150 ml/hr. Pt asked for something for sleep, provider notified and pt was medicated per new order in NOV. Pt has not expressed any further concerns. Pt resting in bed, call light is within reach. Plan of care ongoing.
[2025-03-13 05:55] LABS: Basophils # 0.1 K/mm3 (0-0.2); Basophils % 0.6 % (0.1-2.0); Eosinophils # 0.3 Kmm3 (0.0-0.4); Eosinophils % 2.2 % (0.1-12.0); Hematocrit 46.3 % (42.0-52.0); Immature Granulocytes # 0.05 10^3uL; Immature Granulocytes % 0.4 %; Lymphocytes # 4.8 K/mm3 (0.7-4.5); Lymphocytes % 39.7 % (10-50); Mean Corpuscular HGB Conc 33.9 g/dL (31.8-35.4); Mean Corpuscular Volume 91.5 fl (80-94); Mean Platelet Volume 11.1 fl (7.4-10.4); Monocytes # 1.1 K/mm3 (0.1-1.0); Neutrophils # 5.8 K/mm3 (1.8-7.8); Neutrophils % 48.1 % (37.0-80.0); Nucleated Red Blood Cells # 0 10^3/uL; Nucleated Red Blood Cells % 0 %; Platelet Count 194 K/mm3 (142-424); Red Blood Count 5.06 M/mm3 (4.60-6.20); Red Cell Distribution Width-SD 43.3 fL
--- NOTE | 2025-03-13 06:00 | CA_ITS ---
APPROVED REPORT EXAM: Comprehensive 2D, Doppler, and color-flow Echocardiogram Golf Caddie: Sindi Mckee CRT Ht: 6 ft 0 in Wt: 217lbs BSA: 2.21 BP: 152/91 mmHg Indications: Chest Pain, Hypertension/HDD 2D Dimensions LA Volume 28.30 mL LA Volume Index 12.50 mL/m2 (M/F) 16-34 M-Mode Dimensions RVDd 3.21 cm (0.9-2.6) LA Diam 3.39 cm (1.9-4.0) LVDd 5.04 cm (3.5-5.7) LVDs 3.64 cm (3.5-5.7) IVSd 1.13 cm (0.6-1.1) PWd 1.08 cm (0.6-1.1) EF (Teich) 53.60% FS 27.80% EDV (Teich) 120.50 mL TAPSE 1.55 (<1.7) ESV (Teich) 55.90 mL LV Diastology E Decel Time 270 (160-240 msec) E/A Ratio 0.41 MED A' 12.20 cm/s LAT A' 14.40 cm/s Aortic Valve AO Peak GR. 4.20 mmHg Mitral Valve MV E Max Angel Luis. 31.0 (40-130 cm/s) MV A Velocity 75.0 (40-130 cm/s) E/A Ratio 0.41 MV PHT 79.0 ms Pulmonary Valve PV Peak Velocity 89.0 (50-150 cm/s) Tricuspid Valve TR P. Velocity 255.00 cm/s RAP Estimate 10.00 mmHg RVSP 36.10 mmHg Left Ventricle The left ventricle is normal size. The left ventricular systolic function is low normal. There is increased overall thickness. The septum is asynchronous. Transmitral Doppler flow pattern suggests impaired LV relaxation. LVEF is 50%. Right Ventricle The right ventricle is normal size. The right ventricular systolic function is normal. Atria The left atrium size is normal. The right atrium size is normal. There is no Doppler evidence of interatrial shunt. Aortic Valve Aortic valve opens well. There is no aortic valvular stenosis. No aortic regurgitation is present. Mitral Valve The mitral valve is normal in structure. No evidence of mitral valve stenosis. Trace mitral regurgitation. Tricuspid Valve Tricuspid valve is grossly normal in structure and function. Mild tricuspid regurgitation. RVSP 20-25 mmHg. Pulmonic Valve The pulmonary valve is normal in structure. Trace pulmonic regurgitation. Great Vessels The aortic root is normal in size. The ascending aorta is mildly dilated, measuring 3.8 cm in diameter. IVC is normal in size and collapses >50% with inspiration. Pericardium There is no pericardial effusion. Other Information Study Quality: Fair Conclusion Low normal LV systolic function (LVEF 50%). Asynchronous septum. Mild TR. Electronically signed by : Bella Richardson MD 03/13/2025 11:45:12
[2025-03-13 06:02] LABS: Hemoglobin 15.5 g/dL (14.1-18.0)
[2025-03-13 06:03] LABS: Albumin Level 4.1 g/dl (3.5-5.0); Chloride 98 mmol/L (98-107); Sodium 135 mmol/L (136-145)
[2025-03-13 06:06] LABS: Alanine Aminotransferase 28 U/L (12-78); Albumin/Globulin Ratio 1.3 (1.1-1.8); Alkaline Phosphatase 65 U/L (38-126); Aspartate Amino Transferase 64 U/L (17-59); Bilirubin,Total 0.7 mg/dl (0.2-1.3); Blood Urea Nitrogen 21 mg/dl (9-20); Calcium 8.8 mg/dl (8.4-10.2); Carbon Dioxide 28 mmol/L (22.0-30.0); Creatinine Clearance Estimated 113 mL/min (50-200); Estimated Glomerular Filt Rate 66 ml/min (>60); GFR (African American) 80 ML/MIN (>60); Globulin 3.2 g/dL (1.3-3.2); Glucose 111 mg/dl (74-100); Total Protein,Serum 7.3 g/dl (6.3-8.2)
[2025-03-13 06:07] LABS: Magnesium 2.1 mg/dl (1.6-2.3)
[2025-03-13 06:12] LABS: Hemoglobin A1C 6.3 % (4.0-6.0)
[2025-03-13 06:13] LABS: Creatine Kinase 1889 U/L (55-170)
[2025-03-13 06:22] LABS: Chol/HDL Ratio 3.6 (1-3.5); Cholesterol 194 mg/dl (140-200); HDL Cholesterol 54 mg/dl (40-60); Triglycerides 96 mg/dl (30-150); VLDL Cholesterol 19 mg/dL (0-40)
[2025-03-13 06:33] LABS: Direct LDL Cholesterol 101.14 mg/dL (100-129)
[2025-03-13 06:37] LABS: Thyroid Stimulating Hormone 0.97 uIU/mL (0.465-4.68)
[2025-03-13 08:00] VITALS: BP 93/59; PULSE 97; RESP 16; TEMP 36.7; O2SAT 94
[2025-03-13] MEDS: NICOTINE 21MG/24HR PATCH 21 MG TD (09:41)
[2025-03-13] MEDS: ENOXAPARIN 40MG/0.4ML SYRINGE 40 MG SUBCUT (09:42)
--- NOTE | 2025-03-13 11:29 | P.CONCA_ITS ---
History of Present Illness History of Present Illness Consult date: 03/13/25 Requesting physician: Damir Merino Consult reason: chest pain Chief complaint: Syncope, chest pain Additional Medical History:: 1. Tobacco use 2. Drug use with prior meth and marijuana use History of present illness: Bart Norris is a 44-year-old male with a medical history significant for current methamphetamine use, former opioid use disorder, drug overdose who presents with 2-day onset of fatigue and muscle cramps. Patient states he has been working out in the hot sun over the past few days, both in the [employer] yesterday and working on his car today. He states he has been sweating profusely from the heat, and has been having muscle cramps over the past 2 days. Today, he was feeling exhausted and states he passed out which prompted him to call EMS. Workup in the ED significant for creatinine 2.6 (baseline around 1.0), WBC 20.6, CK 3112. UDS positive for methamphetamines, THC. He was given 2 L LR bolus. Patient wanted to leave AMA but was encouraged by ED provider to stay to which she was amenable. Case discussed with ED provider and history was made to admit patient for rhabdomyolysis, DEEJAY, heat exhaustion. The above per Dr. Merino. The above events confirmed with the patient. Patient is feeling better at this time. He does admit to episodes of chest pain with and without activity that last only a couple of seconds. No prior cardiac history noted. Troponins were normal. EKG is sinus rhythm at 115 bpm with some baseline artifact but no acute ST segment changes noted. Due to rhabdomyolysis and acute kidney injury in light of methamphetamine and marijuana use cardiology consulted for evaluation. Preliminary echocardiogram this morning shows preserved ejection fraction without significant valve disease. [facility] Disclaimer: The information contained in this section may have been updated after the patient was seen, as this information can be updated by other users. Medical History (Updated 03/12/25 @ 14:13 by Jenny Gonzalez RN) Methamphetamine abuse Fatigue Psychiatric diagnosis Insomnia Suicide and self-inflicted injury Suicidal behavior Bipolar disorder Manic behavior Personality disorder Schizophrenia PTSD (post-traumatic stress disorder) Anxiety Acute hypoxemic respiratory failure Seizure Acute streptococcal pharyngitis Acute internal derangement of knee Opiate overdose Surgical History No significant past surgical history Family History Other No significant family history Social History (Updated 03/12/25 @ 14:14 by Jenny Gonzalez RN) Smoking Status: Current every day smoker tobacco type: cigarettes packs per day: 1 alcohol intake: former substance use type: heroin and methamphetamine current occupational status: unemployed Travel in the last 8 weeks?: None Review of Systems Review of Systems Review of systems:: pertinent systems reviewed and negative unless documented below *Cardiovascular Cardiovascular: Reports chest pain Exam Data for Last 24 hours Vital signs and Labs for Last 24 Hours: Temp Pulse Resp BP Pulse Ox O2 Del Method 98.0 F 97 H 16 93/59 L 94 L Room Air 03/13/25 08:00 03/13/25 08:00 03/13/25 08:00 03/13/25 08:00 03/13/25 08:00 03/13/25 09:00 Laboratory Results - last 24 hr 03/12/25 12:12: WBC 20.6 H*, RBC 5.84, Hgb 18.3 H, Hct 52.8 H, MCV 90.4, MCH 31.3 H, MCHC 34.7, RDW 13.1, Plt Count 283, MPV 11.2 H, Neut % (Auto) 74.7, Lymph % (Auto) 15.6, [place] % (Auto) 7.8, Eos % (Auto) 0.3, Baso % (Auto) 0.7, Neut # (Auto) 15.4 H, Lymph # (Auto) 3.2, [place] # (Auto) 1.6 H, Eos # (Auto) 0.1, Baso # (Auto) 0.1, Total Counted 100, Neutrophils % (Manual) 79 H, Lymphocytes % (Manual) 17, Monocytes % (Manual) 4, Platelet Estimate Normal, RBC Morphology Normal, Sodium 139, Potassium 4.0, Chloride 93 L, Carbon Dioxide 22, Anion Gap 28.0 H, BUN 25 H, Creatinine 2.60 H, Estimated Creat Clear 54, Estimated GFR 27 L, Est GFR ( Amer) 33 L, Glucose 115 H, Calcium 10.3 H, Total Bilirubin 1.1, AST 91 H, ALT 45, Alkaline Phosphatase 84, Total Creatine Kinase 3112 H*, Troponin I 0.02, Total Protein 10.6 H D, Albumin 5.6 H, Globulin 5.0 H, Albumin/Globulin Ratio 1.1 03/12/25 13:04: SARS-CoV-2 (PCR) Not detected, Influenza A Untype (PCR) Not detected, Influenza Type B (PCR) Not detected 03/12/25 13:15: Urine Color Yellow, Urine Appearance Clear, Urine pH 5.5, Ur Specific [place] >= 1.030, Urine Protein 1+ A, Urine Glucose (UA) Negative, Urine Ketones Trace, Urine Blood 1+ A, Urine Nitrate Negative, Urine Bilirubin Negative, Urine Urobilinogen 0.2, Ur Leukocyte Esterase Negative, Urine RBC Occasional, Urine WBC 3-5, Ur Squamous Epith Cells 5-10, Amorphous Sediment Trace, Urine Bacteria Trace, Hyaline Casts 5-10, Urine Opiates Screen Negative, Urine Methadone Screen Negative, Ur Barbituates Screen Negative, Ur Phencyclidine Scrn Negative, Ur Amphetamines Screen Positive H, U Benzodiazepines Scrn Negative, Urine Cocaine Screen Negative, U Marijuana (THC) Screen Positive H 03/12/25 15:00: Troponin I < 0.01 03/12/25 18:00: Troponin I < 0.01 03/13/25 05:26: WBC 12.0 H D, RBC 5.06, Hgb 15.5 D, Hct 46.3, MCV 91.5, MCH 31.0, MCHC 33.9, RDW 13.0, Plt Count 194 D, MPV 11.1 H, Neut % (Auto) 48.1, Lymph % (Auto) 39.7, [place] % (Auto) 9.0, Eos % (Auto) 2.2, Baso % (Auto) 0.6, Neut # (Auto) 5.8, Lymph # (Auto) 4.8 H, [place] # (Auto) 1.1 H, Eos # (Auto) 0.3, Baso # (Auto) 0.1, Sodium 135 L, Potassium 4.0, Chloride 98, Carbon Dioxide 28, Anion Gap 13.0, BUN 21 H, Creatinine 1.20 D, Estimated Creat Clear 113, Estimated GFR 66, Est GFR ( Amer) 80 D, Glucose 111 H, Hemoglobin A1c 6.3 H, Calcium 8.8, Magnesium 2.1, Total Bilirubin 0.7, AST 64 H D, ALT 28 D, Alkaline Phosphatase 65, Total Creatine Kinase 1889 H* D, Total Protein 7.3 D, Albumin 4.1 D, Globulin 3.2, Albumin/Globulin Ratio 1.3, Triglycerides 96, Cholesterol 194, LDL Cholesterol Direct 101.14, VLDL Cholesterol 19, HDL Cholesterol 54, Cholesterol/HDL Ratio 3.6 H, TSH 0.97 I & O for Last 24 hours: Intake & Output 03/10/25 03/11/25 03/12/25 03/13/25 11:59 11:59 11:59 11:59 Intake Total 1979 / 1979 Output Total 650 / 650 Balance 1330 / 1330 Weight 224 lb 2 oz Constitutional Constitutional: no acute distress *Routine Respiratory Exam Respiratory: Present decreased breath sounds; Absent rhonchi or wheezes *Routine Cardiovascular Exam Cardiovascular: Present RRR; Absent murmur, gallop or rubs *Routine Extremities Exam Extremities: Absent edema *Routine Skin Exam Comments: Multiple tattoos noted from neck to feet Meds Home Medications and Allergies Home Medications ?Medication ?Instructions ?Recorded ?Confirmed ?Type naloxone 4 mg/actuation nasal 4 mg intranasal Q2M PRN opioid 03/13/25 Rx spray (Narcan) overdose #2 ea New Prescriptions to Start Prescriptions: naloxone [Narcan] Damir Merino Allergies Allergy/AdvReac Type Severity Reaction Status Date / Time No Known Allergies Allergy Verified 08/22/24 09:13 Assessment and Plan *Assessment and plan (1) Rhabdomyolysis: Status: Acute Qualifiers: Rhabdomyolysis type: non-traumatic Qualified Code(s): M62.82 - Rhabdomyolysis Category: Medical Code(s): M62.82 - Rhabdomyolysis (2) DEEJAY (acute kidney injury): Status: Acute Category: Medical Code(s): N17.9 - Acute kidney failure, unspecified (3) Methamphetamine use disorder, severe, dependence: Status: Acute Category: Medical Code(s): F15.20 - Other stimulant dependence, uncomplicated Plan 1. Rhabdomyolysis in the setting of dehydration, acute kidney injury and drug use Labs improving with hydration 2. Echocardiogram this a.m. preliminary results show preserved ejection fraction without significant valve disease Nothing further to add. Stable from cardiology standpoint for discharge home.
--- NOTE | 2025-03-13 11:58 | EXP.DC.SUM ---
General Admission date:: 03/12/25 HPI HPI HPI: Bart Norris is a 44-year-old male with a medical history significant for current methamphetamine use, former opioid use disorder, drug overdose who presents with 2-day onset of fatigue and muscle cramps. 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 He states he has been sweating profusely from the heat, and has been having muscle cramps over the past 2 days. Today, he was feeling exhausted and states he passed out which prompted him to call EMS. Workup in the ED significant for creatinine 2.6 (baseline around 1.0), WBC 20.6, CK 3112. UDS positive for methamphetamines, THC. He was given 2 L LR bolus. Patient wanted to leave AMA but was encouraged by ED provider to stay to which she was amenable. Case discussed with ED provider and history was made to admit patient for rhabdomyolysis, DEEJAY, heat exhaustion. Hospital Course Hospital Course Hospital Course: Bart Norris is a 44-year-old male with a medical history significant for current methamphetamine use, former opioid use disorder, drug overdose who presents with 2-day onset of fatigue and muscle cramps. 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 He states he has been sweating profusely from the heat, and has been having muscle cramps over the past 2 days. Today, he was feeling exhausted and states he passed out which prompted him to call EMS. Workup in the ED significant for creatinine 2.6 (baseline around 1.0), WBC 20.6, CK 3112. UDS positive for methamphetamines, THC. He was given 2 L LR bolus. Patient wanted to leave AMA but was encouraged by ED provider to stay to which she was amenable. Case discussed with ED provider and history was made to admit patient for rhabdomyolysis, DEEJAY, heat exhaustion. #Rhabdomyolysis #DEEJAY #Leukocytosis ? Presented with heat exhaustion, dehydration, muscle cramps. Initial CK 3112, WBC 20.6 -likely reactive as to 1200 discharge. No signs of infection. ? Clinically improved with fluid resuscitation, creatinine improved from 2.6-1.2 and CK improved to 1889. ? Advised patient to refrain from extended sun exposure, and recommended that he take off work for the 5 days to recover from the rhabdomyolysis. He was amenable to this plan. ? Referred and advised patient to follow-up with PCP within 2 weeks. #Chest pain ? Patient states he has been having on and off left-sided chest pain since overdosing on meth a few years ago. Sometimes worse with exertion. Current smoker. ? Hemoglobin A1c 6.3%, LDL 101, TSH normal. ECHO unremarkable. ? Cardiology consulted, no recommendations for ischemic workup at this time. #Substance use disorder ? Currently uses meth, former opioid user. ? Peer support consulted, recommended discharging with Narcan. Total time spent on discharge: 33 minutes on chart review, counseling, documentation, and direct care with patient. Exam Data for Last 24 hours Vital signs and Labs for Last 24 Hours: Temp Pulse Resp BP Pulse Ox O2 Del Method 98.0 F 97 H 16 93/59 L 94 L Room Air 03/13/25 08:00 03/13/25 08:00 03/13/25 08:00 03/13/25 08:00 03/13/25 08:00 03/13/25 09:00 Laboratory Results - last 24 hr 03/12/25 12:12: WBC 20.6 H*, RBC 5.84, Hgb 18.3 H, Hct 52.8 H, MCV 90.4, MCH 31.3 H, MCHC 34.7, RDW 13.1, Plt Count 283, MPV 11.2 H, Neut % (Auto) 74.7, Lymph % (Auto) 15.6, [place] % (Auto) 7.8, Eos % (Auto) 0.3, Baso % (Auto) 0.7, Neut # (Auto) 15.4 H, Lymph # (Auto) 3.2, [place] # (Auto) 1.6 H, Eos # (Auto) 0.1, Baso # (Auto) 0.1, Total Counted 100, Neutrophils % (Manual) 79 H, Lymphocytes % (Manual) 17, Monocytes % (Manual) 4, Platelet Estimate Normal, RBC Morphology Normal, Sodium 139, Potassium 4.0, Chloride 93 L, Carbon Dioxide 22, Anion Gap 28.0 H, BUN 25 H, Creatinine 2.60 H, Estimated Creat Clear 54, Estimated GFR 27 L, Est GFR ( Amer) 33 L, Glucose 115 H, Calcium 10.3 H, Total Bilirubin 1.1, AST 91 H, ALT 45, Alkaline Phosphatase 84, Total Creatine Kinase 3112 H*, Troponin I 0.02, Total Protein 10.6 H D, Albumin 5.6 H, Globulin 5.0 H, Albumin/Globulin Ratio 1.1 03/12/25 13:04: SARS-CoV-2 (PCR) Not detected, Influenza A Untype (PCR) Not detected, Influenza Type B (PCR) Not detected 03/12/25 13:15: Urine Color Yellow, Urine Appearance Clear, Urine pH 5.5, Ur Specific [place] >= 1.030, Urine Protein 1+ A, Urine Glucose (UA) Negative, Urine Ketones Trace, Urine Blood 1+ A, Urine Nitrate Negative, Urine Bilirubin Negative, Urine Urobilinogen 0.2, Ur Leukocyte Esterase Negative, Urine RBC Occasional, Urine WBC 3-5, Ur Squamous Epith Cells 5-10, Amorphous Sediment Trace, Urine Bacteria Trace, Hyaline Casts 5-10, Urine Opiates Screen Negative, Urine Methadone Screen Negative, Ur Barbituates Screen Negative, Ur Phencyclidine Scrn Negative, Ur Amphetamines Screen Positive H, U Benzodiazepines Scrn Negative, Urine Cocaine Screen Negative, U Marijuana (THC) Screen Positive H 03/12/25 15:00: Troponin I < 0.01 03/12/25 18:00: Troponin I < 0.01 03/13/25 05:26: WBC 12.0 H D, RBC 5.06, Hgb 15.5 D, Hct 46.3, MCV 91.5, MCH 31.0, MCHC 33.9, RDW 13.0, Plt Count 194 D, MPV 11.1 H, Neut % (Auto) 48.1, Lymph % (Auto) 39.7, Sandoval % (Auto) 9.0, Eos % (Auto) 2.2, Baso % (Auto) 0.6, Neut # (Auto) 5.8, Lymph # (Auto) 4.8 H, [place] # (Auto) 1.1 H, Eos # (Auto) 0.3, Baso # (Auto) 0.1, Sodium 135 L, Potassium 4.0, Chloride 98, Carbon Dioxide 28, Anion Gap 13.0, BUN 21 H, Creatinine 1.20 D, Estimated Creat Clear 113, Estimated GFR 66, Est GFR ( Amer) 80 D, Glucose 111 H, Hemoglobin A1c 6.3 H, Calcium 8.8, Magnesium 2.1, Total Bilirubin 0.7, AST 64 H D, ALT 28 D, Alkaline Phosphatase 65, Total Creatine Kinase 1889 H* D, Total Protein 7.3 D, Albumin 4.1 D, Globulin 3.2, Albumin/Globulin Ratio 1.3, Triglycerides 96, Cholesterol 194, LDL Cholesterol Direct 101.14, VLDL Cholesterol 19, HDL Cholesterol 54, Cholesterol/HDL Ratio 3.6 H, TSH 0.97 I & O for Last 24 hours: Intake & Output 03/10/25 03/11/25 03/12/25 03/13/25 23:59 23:59 23:59 23:59 Intake Total 720 / 1620 1260 / 1260 Output Total 650 / 650 Balance 720 / 1620 610 / 610 Weight 98.628 kg 101.661 kg Constitutional Constitutional: no acute distress *Routine HEENT Exam Head: Present normocephalic Eye: Present EOMI and PERRL ENT: Present mucous membranes moist *Routine Neck Exam Neck: Present supple; Absent lymphadenopathy *Routine Respiratory Exam Respiratory: Present CTA bilaterally *Routine Cardiovascular Exam Cardiovascular: Present RRR *Routine Abdominal Exam Abdominal: Present soft and normoactive bowel sounds; Absent tenderness *Routine Extremities Exam Extremities: Absent cyanosis, clubbing or edema *Routine Skin Exam Skin: Present warm; Absent rash *Routine Neurological Exam Neurological: Present alert and oriented X3 Results Data Completed and Pending Labs on day of discharge: Labs from last 24 hours 03/13/25 03/12/25 03/12/25 05:26 18:00 15:00 WBC 12.0 H D RBC 5.06 Hgb 15.5 D Hct 46.3 MCV 91.5 MCH 31.0 MCHC 33.9 RDW 13.0 Plt Count 194 D MPV 11.1 H Neut % (Auto) 48.1 Lymph % (Auto) 39.7 Sandoval % (Auto) 9.0 Eos % (Auto) 2.2 Baso % (Auto) 0.6 Neut # (Auto) 5.8 Lymph # (Auto) 4.8 H [place] # (Auto) 1.1 H Eos # (Auto) 0.3 Baso # (Auto) 0.1 Total Counted Neutrophils % (Manual) Lymphocytes % (Manual) Monocytes % (Manual) Platelet Estimate RBC Morphology Sodium 135 L Potassium 4.0 Chloride 98 Carbon Dioxide 28 Anion Gap 13.0 BUN 21 H Creatinine 1.20 D Estimated Creat Clear 113 Estimated GFR 66 Est GFR ( Amer) 80 D Glucose 111 H Hemoglobin A1c 6.3 H Calcium 8.8 Magnesium 2.1 Total Bilirubin 0.7 AST 64 H D ALT 28 D Alkaline Phosphatase 65 Total Creatine Kinase 1889 H* D Troponin I < 0.01 < 0.01 Total Protein 7.3 D Albumin 4.1 D Globulin 3.2 Albumin/Globulin Ratio 1.3 Triglycerides 96 Cholesterol 194 LDL Cholesterol Direct 101.14 VLDL Cholesterol 19 HDL Cholesterol 54 Cholesterol/HDL Ratio 3.6 H TSH 0.97 Urine Color Urine Appearance Urine pH Ur Specific [place] Urine Protein Urine Glucose (UA) Urine Ketones Urine Blood Urine Nitrate Urine Bilirubin Urine Urobilinogen Ur Leukocyte Esterase Urine RBC Urine WBC Ur Squamous Epith Cells Amorphous Sediment Urine Bacteria Hyaline Casts Urine Opiates Screen Urine Methadone Screen Ur Barbituates Screen Ur Phencyclidine Scrn Ur Amphetamines Screen U Benzodiazepines Scrn Urine Cocaine Screen U Marijuana (THC) Screen SARS-CoV-2 (PCR) Influenza A Untype (PCR) Influenza Type B (PCR) 03/12/25 03/12/25 03/12/25 13:15 13:04 12:12 WBC 20.6 H* RBC 5.84 Hgb 18.3 H Hct 52.8 H MCV 90.4 MCH 31.3 H MCHC 34.7 RDW 13.1 Plt Count 283 MPV 11.2 H Neut % (Auto) 74.7 Lymph % (Auto) 15.6 Sandoval % (Auto) 7.8 Eos % (Auto) 0.3 Baso % (Auto) 0.7 Neut # (Auto) 15.4 H Lymph # (Auto) 3.2 [place] # (Auto) 1.6 H Eos # (Auto) 0.1 Baso # (Auto) 0.1 Total Counted 100 Neutrophils % (Manual) 79 H Lymphocytes % (Manual) 17 Monocytes % (Manual) 4 Platelet Estimate Normal RBC Morphology Normal Sodium 139 Potassium 4.0 Chloride 93 L Carbon Dioxide 22 Anion Gap 28.0 H BUN 25 H Creatinine 2.60 H Estimated Creat Clear 54 Estimated GFR 27 L Est GFR ( Amer) 33 L Glucose 115 H Hemoglobin A1c Calcium 10.3 H Magnesium Total Bilirubin 1.1 AST 91 H ALT 45 Alkaline Phosphatase 84 Total Creatine Kinase 3112 H* Troponin I 0.02 Total Protein 10.6 H D Albumin 5.6 H Globulin 5.0 H Albumin/Globulin Ratio 1.1 Triglycerides Cholesterol LDL Cholesterol Direct VLDL Cholesterol HDL Cholesterol Cholesterol/HDL Ratio TSH Urine Color Yellow Urine Appearance Clear Urine pH 5.5 Ur Specific [place] >= 1.030 Urine Protein 1+ A Urine Glucose (UA) Negative Urine Ketones Trace Urine Blood 1+ A Urine Nitrate Negative Urine Bilirubin Negative Urine Urobilinogen 0.2 Ur Leukocyte Esterase Negative Urine RBC Occasional Urine WBC 3-5 Ur Squamous Epith Cells 5-10 Amorphous Sediment Trace Urine Bacteria Trace Hyaline Casts 5-10 Urine Opiates Screen Negative Urine Methadone Screen Negative Ur Barbituates Screen Negative Ur Phencyclidine Scrn Negative Ur Amphetamines Screen Positive H U Benzodiazepines Scrn Negative Urine Cocaine Screen Negative U Marijuana (THC) Screen Positive H SARS-CoV-2 (PCR) Not detected Influenza A Untype (PCR) Not detected Influenza Type B (PCR) Not detected DS: Diagnosis Discharge Diagnosis (1) Rhabdomyolysis: Status: Acute Code(s): M62.82 - Rhabdomyolysis Qualifiers: Rhabdomyolysis type: non-traumatic Qualified Code(s): M62.82 - Rhabdomyolysis (2) DEEJAY (acute kidney injury): Status: Acute Code(s): N17.9 - Acute kidney failure, unspecified (3) Methamphetamine use disorder, severe, dependence: Status: Acute Code(s): F15.20 - Other stimulant dependence, uncomplicated Meds Home Medications and Allergies Home Medications ?Medication ?Instructions ?Recorded ?Confirmed ?Type naloxone 4 mg/actuation nasal 4 mg intranasal Q2M PRN opioid 03/13/25 Rx spray (Narcan) overdose #2 ea New Prescriptions to Start Prescriptions: naloxone [Narcan] Damir Merino Allergies Allergy/AdvReac Type Severity Reaction Status Date / Time No Known Allergies Allergy Verified 08/22/24 09:13 Discharge Plan Disposition Patient Disposition: Home, Self-Care Condition: Fair Follow up Plan Follow up with: Jesús Jarrett APRN [Nurse Practitioner, Family Practice] - 03/22/25 1:00 pm Prescriptions/Medication Reconciliation: New naloxone [Narcan] 4 mg/actuation spray,non-aerosol 4 mg intranasal Q2M PRN (Reason: opioid overdose) Qty: 2 0RF Rx Instructions: spray 1 dose into ONE nostril; alternate nostrils w each dose until help arrives Problem Reconciliation Problems Reviewed?: Yes Patient Discharge Instructions Patient Instructions: Rhabdomyolysis, Fainting, Heart Failure, Lifestyle Habits May Lower Lifetime Risk of Heart Failure in Men Print Language: Bulgarian Providers Primary Care Provider: Provider,Referral Admit Provider: Damir Merino Attending Provider: Damir Merino
--- NOTE | 2025-03-13 13:10 | CARE MANAGER ---
Contacted by Clinic pharmacy. Patient's insurance is not showing active yet to get his prescription covered. The cost would be around $35 and I called the nurse on the floor to discuss this with patient, but he had already left. Attempted to call the patient and left message asking for a return call.
--- NOTE | 2025-03-13 17:19 | PEERSUPPORT ---
Peer Support Note Patient Information Patient Information: DOS: 03/13/2025 ? Drug(s) of Choice: Stimulants; Meth (snorting, smoking, eating), THC ? Last Use:03/12/2025 ? Use Hx: 15+ years of [place] with opiate and stimulant use, Pt has not used opiates in 5 years. Has not been able to stop using meth or stimulants. Pt has not used IV in four years.? ? Previous MAT[facility]MOUD: [facility]; refused suboxone due to not wanting to become dependent on another drug. ? Current MAT/MOUD: None ? Desire for MAT/MOUD: No interest to start medication, would consider [facility] for psych. ? Previous Treatment: [facility]; transferred in to sober living, began using then was released. ? Longest Length of Sobriety: Only while incarcerated.? ? Support System: Mother-Yen ? Legal Issues: Pt ordered to Court on 03/20/2025. ? Potential Barriers: -Lack of connection to Recovery treatment or community -Minimizing effects on overall health -Unattended under lying issues- Pt stated he has BPD, ADHD, anger issues. ? Harm reduction: -Connection to [facility] peer support -Education on use of chemical/substance to health; mental, emotional, physical - Treatment referrals and resources -Narcan for high risk of overdose ? Motivation for Change: Pt stated he does want to stop using but knows the people he associates with provide him access. He is not interested in outpatient clinics at this time, but says he will consider inpatient treatment and reach out if he wants to commit to treatment post discharge before his court date next week. ? Pt is able to reflect on leading up to being in the hospital, multiple days without sleep or food and working in high temperatures. ? Ps shared personal experience relevant to situation to provide hope and strength to decision making and available treatment.? ? Ps and pt discussed safety plan/safe coping skills: -Say no -Journal thoughts and feelings -[place] -Sleep -Eat -Reach out to a trusted social support who knows of his recovery plan ? Plan of Action: -Refrain from using alcohol/and or drugs -Ps to follow up on 03/14/2025
--- NOTE | 2025-03-14 10:33 | SW/DCPLANNER ---
Spoke with patient's mom on the phone. Patient's mom stated that he is doing good. Patient's mom stated that he has narcan at home already. Patient's mom stated that she has no concerns or questions at this time. Patrick Iqbal
== END 2025-03-13 13:03 | disposition home or self-care (01) ==
LOC: ER 13:29 → 2ND 13:44
PROVIDERS: Nurse Practitioner; Admitting Provider Student in an Organized Health Care Education/Training Program; Emergency Provider Student in an Organized Health Care Education/Training Program; Visit Provider Student in an Organized Health Care Education/Training Program
DX: N17.9 Acute kidney failure, unspecified (principal); M62.82 Rhabdomyolysis; T67.1XXA Heat syncope, initial encounter; T67.5XXA Heat exhaustion, unspecified, initial encounter; T67.2XXA Heat cramp, initial encounter; D72.829 Elevated white blood cell count, unspecified; R07.89 Other chest pain; F15.20 Other stimulant dependence, uncomplicated; F17.210 Nicotine dependence, cigarettes, uncomplicated; F12.10 Cannabis abuse, uncomplicated; X30.XXXA Exposure to excessive natural heat, initial encounter; Y92.89 Other specified places as the place of occurrence of the external cause
CPT/HCPCS: 96361; 96374; 36415; 71045; 80053; 80061; 80307; 81001; 82550; 83036; 83735; 84443; 84484; 85007; 85025; 85027; 87636; 93005; 93306; G0378; J0131; J1650; J7120